=== PATIENT | female | born 1940 | race Caucasian/White ===

== ENCOUNTER 2017-01-15 18:50 | Inpatient (IN) | payer MEDICARE, BC ==
[~2017-01-15] VITALS: Ht 167.6 cm; Wt 50.0 kg
--- NOTE | 2017-01-15 19:08 | ED.ADGEN ---
Past History Past Medical History: Dementia, Other Adult General Chief Complaint Chief Complaint " No.. No... No... " " No touch.." I am fine..." Leave me alone.." HPI HPI Patient is a 76 year old female who presents with mental status change. Pt. [facility], for evaluation of behavioral changes. Pt. has hx. of more aggressive behavior, combative, pacing, agitation, impulsive behavior, verbal abusive, difficult to re-direct. Pt. has hx of Alzheimer, anxiety disorder, insomnia, Crohn's disease, urinary stress incontinence. Some recent history of falls. Pt. Primary is Dr. Phil Gee. Patient has been previously ambulatory at the retirement with use of cane. Hx of falls at assisted. Review of Systems Review of Systems Patient has no complaints- but a difficult historian Constitutional: Denies fever or chills [] Eyes: Denies change in visual acuity, redness, or eye pain [] HENT: Denies nasal congestion or sore throat [] Respiratory: Denies cough or shortness of breath [] Cardiovascular: No additional information not addressed in HPI [] GI: Denies abdominal pain, nausea, vomiting, bloody stools or diarrhea [] : Denies dysuria or hematuria [] Musculoskeletal: Denies back pain or joint pain [] Integument: Denies rash or skin lesions [] Neurologic: Denies headache, focal weakness or sensory changes [] Endocrine: Denies polyuria or polydipsia [] All other systems were reviewed and found to be within normal limits, except as documented in this note. Family History Family History Not currently available Current Medications Current Medications Current Medications Medications (Trade) Dose Ordered Sig/Dora Start Time Stop Time Status Last Admin Dose Admin Diphenhydramine HCl (Benadryl) 50 mg 1X ONCE 01/15/17 19:30 01/15/17 20:15 DC 01/15/17 19:35 50 MG Lorazepam (Ativan) 2 mg 1X ONCE 01/15/17 22:45 01/15/17 22:46 DC 01/15/17 22:20 2 MG Ziprasidone (Geodon Im) 10 mg 1X ONCE 01/15/17 22:45 01/15/17 22:46 DC 01/15/17 22:45 10 MG Allergies Allergies Allergies Coded Allergies Type Severity Reaction Last Updated Verified YAZMIN Inhibitors Allergy Unknown 01/15/17 Yes Physical Exam Physical Exam Constitutional: in acute emotional distress, non-toxic appearance. Very agitated. HENT: Normocephalic, atraumatic, bilateral external ears normal, oropharynx moist, no oral exudates, nose normal. [] Eyes: PERRLA, EOMI, conjunctiva normal, no discharge. [] Neck: Normal range of motion, no tenderness, supple, no stridor. [] Cardiovascular:Heart rate regular rhythm, no murmur [] Lungs & Thorax: Bilateral breath sounds equal at apexes with some fine basilar crackles and scattered wheezes on auscultation [] Abdomen: Bowel sounds normal, soft, no tenderness, no masses, no pulsatile masses. Old surgery scar. Skin: Warm, dry, no erythema, no rash. Poor turgor Back: No tenderness, no CVA tenderness. [] Extremities: No tenderness, no cyanosis, no clubbing, ROM intact, no edema. Arthritic changes Neurologic: Alert and oriented X 1, confused, moves all extremities ,, no gross sensory function deficits, no gross focal deficits noted. [] Psychologic: Affect very agitated attempts to bite and strike staff, judgement obvious impairment mood anxious and angry. She is requesting return her to prior retirement. Current Patient Data Vital Signs Vital Signs Date Time Temp Pulse Resp B/P (MAP) Pulse Ox O2 Delivery O2 Flow Rate FiO2 01/15/17 19:15 98.4 78 95 01/15/17 19:15 20 120/64 (82) Room Air Lab Results Laboratory Tests Test 01/15/17 19:45 01/15/17 19:50 White Blood Count 5.8 x10^3/uL (4.0-11.0) Red Blood Count 3.36 x10^6/uL (3.50-5.40) L Hemoglobin 10.9 g/dL (12.0-15.5) L Hematocrit 31.1 % (36.0-47.0) L Mean Corpuscular Volume 93 fL (79-100) Mean Corpuscular Hemoglobin 32 pg (25-35) Mean Corpuscular Hemoglobin Concent 35 g/dL (31-37) Red Cell Distribution Width 14.0 % (11.5-14.5) Platelet Count 282 x10^3/uL (140-400) Neutrophils (%) (Auto) 55 % (31-73) Lymphocytes (%) (Auto) 31 % (24-48) Monocytes (%) (Auto) 12 % (0-9) H Eosinophils (%) (Auto) 1 % (0-3) Basophils (%) (Auto) 1 % (0-3) Neutrophils # (Auto) 3.2 x10^3uL (1.8-7.7) Lymphocytes # (Auto) 1.8 x10^3/uL (1.0-4.8) Monocytes # (Auto) 0.7 x10^3/uL (0.0-1.1) Eosinophils # (Auto) 0.0 x10^3/uL (0.0-0.7) Basophils # (Auto) 0.0 x10^3/uL (0.0-0.2) Sodium Level 142 mmol/L (136-145) Potassium Level 3.2 mmol/L (3.5-5.1) L Chloride Level 106 mmol/L (98-107) Carbon Dioxide Level 28 mmol/L (21-32) Anion Gap 8 (6-14) Blood Urea Nitrogen 12 mg/dL (7-20) Creatinine 1.0 mg/dL (0.6-1.0) Estimated GFR (Cockcroft-Gault) 53.9 BUN/Creatinine Ratio 12 (6-20) Glucose Level 94 mg/dL (70-99) Calcium Level 8.6 mg/dL (8.5-10.1) Magnesium Level 1.7 mg/dL (1.8-2.4) L Total Bilirubin 0.6 mg/dL (0.2-1.0) Aspartate Amino Transferase (AST) 20 U/L (15-37) Alanine Aminotransferase (ALT) 23 U/L (14-59) Alkaline Phosphatase 54 U/L (46-116) Creatine Kinase 86 U/L (26-192) Creatine Kinase MB (Mass) 1.5 ng/mL (0.0-3.6) Creatine Kinase MB Relative Index 1.7 % (0-4) Troponin I Quantitative < 0.017 ng/mL (0-0.055) FV-Kup-V-Type Natriuretic Peptide 208 pg/mL (0-449) Total Protein 6.5 g/dL (6.4-8.2) Albumin 3.2 g/dL (3.4-5.0) L Albumin/Globulin Ratio 1.0 (1.0-1.7) Lipase 216 U/L (73-393) Urine Collection Type U cath Urine Color Yellow Urine Clarity Clear Urine pH 6.0 Urine Specific [place] 1.025 Urine Protein 30 mg/dl (NEG-TRACE) Urine Glucose (UA) Neg mg/dL (NEG) Urine Ketones (Stick) Neg mg/dL (NEG) Urine Blood Neg (NEG) Urine Nitrite Neg (NEG) Urine Bilirubin Neg (NEG) Urine Urobilinogen Dipstick 0.2 mg/dL (0.2 mg/dL) Urine Leukocyte Esterase Neg (NEG) Urine RBC 1-2 /HPF (0-2) Urine WBC 1-4 /HPF (0-4) Urine Squamous Epithelial Cells Few /LPF Urine Bacteria 0 /HPF (0-FEW) Urine Mucus Mod /LPF Urine Opiates Screen Neg (NEG) Urine Methadone Screen Neg (NEG) Urine Barbiturates Neg (NEG) Urine Phencyclidine Screen Neg (NEG) Urine Amphetamine/Methamphetamine Neg (NEG) Urine Benzodiazepines Screen Neg (NEG) Urine Cocaine Screen Neg (NEG) Urine Cannabinoids Screen Neg (NEG) Urine Ethyl Alcohol Neg (NEG) EKG EKG My interpretation of EKG shows a sinus rhythm at 77 bpm. There is some nonspecific contour changes in the anterior septal region. But no findings acute STEMI with contralateral changes.[] Radiology/Procedures Radiology/Procedures My interpretation of chest x-ray shows chronic fibrotic COPD changes. No free air under the diaphragm. Degenerative joint changes.[] My interpretation of CT head show no shift, mass, bleed, fx. , edema, DJD of neck. Course & Med Decision Making Course & Med Decision Making Pertinent Labs and Imaging studies reviewed. (See chart for details) Patient difficult to redirect , pt required sedation to complete lab draws and workup. Discussed presentation, testing and tx. plan with Dr. Westbrook. Admit to [facility]- Dr. Pena. [] Final Impression Final Impression 1. Mental Status Change[] 2. Dementia 3. Hypokalemia 4. Hypomagnesium 5. Anemia 6. Aggressive Behavior 7. Hx. of Crohn's disease 8. History of anxiety disorder 9. History of stress incontinence 10. History of insomnia Problems: Dragon Disclaimer Dragon Disclaimer This electronic medical record was generated, in whole or in part, using a voice recognition dictation system. SHYANNE VELIZ MD Jan 15, 2017 19:08
[2017-01-15] MEDS ORDERED: diphenhydrAMINE 50 MG/ML VIAL ONE (19:28)
[2017-01-15] MEDS ORDERED: LORazepam 2 MG/ML VIAL ONE (19:28)
[2017-01-15] MEDS ORDERED: diphenhydrAMINE 50 MG/ML VIAL IM ONE (19:30)
[2017-01-15] MEDS ORDERED: LORazepam 2 MG/ML VIAL IM ONE ×2 (19:30→22:45)
[2017-01-15 20:12] LABS: BASO % 1 % (0-3); EOS % 1 % (0-3); HEMATOCRIT 31.1 % (36.0-47.0); HEMOGLOBIN 10.9 g/dL (12.0-15.5); LYMPH # 1.8 x10^3/uL (1.0-4.8); LYMPH % 31 % (24-48); MEAN CORPUSCULAR HEMOGLOBIN 32 pg (25-35); MEAN CORPUSCULAR HGB CONC 35 g/dL (31-37); MEAN CORPUSCULAR VOLUME 93 fL (79-100); MONO # 0.7 x10^3/uL (0.0-1.1); MONO % 12 % (0-9); NEUT # 3.2 x10^3uL (1.8-7.7); NEUT % 55 % (31-73); PLATELET COUNT 282 x10^3/uL (140-400); RED BLOOD COUNT 3.36 x10^6/uL (3.50-5.40); WHITE BLOOD COUNT 5.8 x10^3/uL (4.0-11.0)
[2017-01-15] MEDS ORDERED: LORazepam 1 MG TABLET PO ONE ×2 (20:15→21:45)
[2017-01-15 20:30] LABS: AMPHETAMINE/METHAMPHETAMINE NEG (NEG); BARBITURATES NEG (NEG); BENZODIAZEPINES NEG (NEG); CANNABINOIDS NEG (NEG); COCAINE NEG (NEG); METHADONE NEG (NEG); OPIATES NEG (NEG); PHENCYCLIDINE NEG (NEG)
[2017-01-15 20:33] LABS: ALBUMIN 3.2 g/dL (3.4-5.0); CALCIUM 8.6 mg/dL (8.5-10.1); GFR 53.9; MAGNESIUM 1.7 mg/dL (1.8-2.4); POTASSIUM 3.2 mmol/L (3.5-5.1); TOTAL BILIRUBIN 0.6 mg/dL (0.2-1.0); TOTAL PROTEIN 6.5 g/dL (6.4-8.2)
[2017-01-15 20:36] LABS: BILIRUBIN,URINE NEG (NEG); CLARITY,URINE CLEAR; COLOR,URINE YELLOW; GLUCOSE,URINE NEG (NEG)
[2017-01-15 20:37] LABS: BACTERIA,URINE 0 /HPF (0-FEW); NITRITE,URINE NEG (NEG); SQUAMOUS EPITHELIAL CELL,UR FEW /LPF; UROBILINOGEN,URINE 0.2 mg/dL (0.2 mg/dL)
[2017-01-15] MEDS ORDERED: LOSA50TA6 PO (21:21)
[2017-01-15] MEDS ORDERED: SIMV40TA3 PO (21:21)
[2017-01-15] MEDS ORDERED: TRAZ50TA15 PO (21:21)
[2017-01-15] MEDS ORDERED: CHOL4POW11 PO (21:21)
[2017-01-15] MEDS ORDERED: TRAZ150T49 PO (21:21)
[2017-01-15] MEDS ORDERED: POLY17PO5 PO (21:21)
[2017-01-15] MEDS ORDERED: MEMA10TA PO (21:21)
[2017-01-15] MEDS ORDERED: OMEG-117 PO (21:21)
[2017-01-15] MEDS ORDERED: DIVA125C PO (21:21)
[2017-01-15] MEDS ORDERED: ACET325T9 PO (21:21)
[2017-01-15] MEDS ORDERED: MESA500C PO (21:21)
[2017-01-15] MEDS ORDERED: ZIPRASIDONE IM 20 MG VIAL. IM ONE (22:45)
--- NOTE | 2017-01-16 00:24 | EKG ---
[address] [address] Test Date: 2017-01-15 Test Time: 20:00:10 Pat Name: KAIT ACE Department: Room: Gender: F Stiff Neck Loader: ALMA : 1940 Requested By: SHYANNE VELIZ Order Number: [id number] Reading MD: John Brown Measurements Intervals [place] Rate: 77 P: 26 CA: 178 QRS: 9 QRSD: 80 T: 49 QT: 370 QTc: 420 Interpretive Statements SINUS RHYTHM QRS(T) CONTOUR ABNORMALITY CONSISTENT WITH ANTEROSEPTAL INFARCT PROBABLY OLD ABNORMAL ECG Electronically Signed On 01-22-2017 14:29:24 SOCIETY EDITOR by John Brown
--- NOTE | 2017-01-16 00:39 | RAD ---
CT Head W/O Contrast: History: 311481.001 Recent falls, altered mental status, confusion, combative. No priors. Comparison: none Axial images were obtained without contrast. There is moderate diffuse atrophy. There is no mass effect, extraaxial fluid collections or hydrocephalus. There is no gross bleed. Moderate, patchy periventricular and subcortical white matter hypoattenuation is seen. There is no focal loss of tilley-white matter distinction to suggest acute ischemia, i.e. stroke. Impression: No acute findings. End impression CT C-Spine without contrast: Clinical History: 239786.001 Recent falls, altered mental status, confusion, combative. No priors. Technique: Axial helical images of the cervical spine were obtained without contrast, axial coronal and sagittal reconstruction was performed. Findings: There is no loss of vertebral body stature. There is no prevertebral soft tissue swelling. There is mild degenerative anterolisthesis of C4 on C5. The C1-C2 relationship is normal. The visualized osseous structures appear normal. Evaluation of the central canal is limited without contrast. There is multiple posterior disc bulges resulting in flattening of the thecal sac. There does not appear to be gross flattening of the cervical cord. There is moderate narrowing of multiple neuroforamen. Impression: No acute findings. Clinical correlation suggested. PQRS Compliance Statement: One or more of the following individualized dose reduction techniques were utilized for this examination: 1. Automated exposure control 2. Adjustment of the mA and/or kV according to patient size 3. Use of iterative reconstruction technique Electronically signed by: García Gamble III, MD (01/16/2017 12:36 AM) [facility]
[2017-01-16] MEDS ORDERED: ACETAMINOPHEN 325 MG TABLET PO PRN ×2 (03:45→06:15)
[2017-01-16] MEDS ORDERED: METHYL SALICYLATE/MENTHOL TOPICAL OINTMENT 29GM TUBE. TP PRN (03:45)
[2017-01-16] MEDS ORDERED: MAG HYDROX/AL HYDROX/SIMETH 30 ML ORAL.SUSP PO PRN (03:45)
[2017-01-16 03:47] VITALS: BP 165/85
[2017-01-16] MEDS ORDERED: traZODone 50 MG TABLET. PO PRN (04:00)
[2017-01-16] MEDS ORDERED: POTASSIUM CHLORIDE 20 MEQ TABLET.ER. PO ONE ×2 (06:30→12:45)
--- NOTE | 2017-01-16 08:15 | RAD ---
Chest x-ray Indication: Weakness, confusion 20. Technique: Portable AP chest x-ray Comparison: None Findings: Heart is normal in size. Ectatic thoracic aorta. Lungs are clear. No pneumothorax or pleural effusion. Visualized bony thorax is within normal limits. Impression: No acute cardiopulmonary process.
[2017-01-16] MEDS: MESALAMINE ER 250 MG CAPSULE.ER PO SCH ×4 (09:00→19:38)
[2017-01-16] MEDS ORDERED: MEMANTINE 10 MG TABLET. PO SCH (09:00)
[2017-01-16] MEDS: POLYETHYLENE GLYCOL 3350 17 GM PACKET. PO SCH (12:23)
[2017-01-16] MEDS: OMEGA-3 FATTY ACIDS/FISH OIL 1,000 MG CAPSULE. PO SCH ×3 (12:23→19:39)
[2017-01-16] MEDS: CHOLESTYRAMINE/ASPARTAME 4 GM PACKET PO SCH (12:23)
[2017-01-16] MEDS: DIVALPROEX 125 MG CAP.SPRINK PO SCH (12:23)
[2017-01-16 12:25] VITALS: BP 174/89
[2017-01-16] MEDS: LOSARTAN 50 MG TABLET. PO SCH (12:26)
[2017-01-16] MEDS ORDERED: CYANOCOBALAMIN (VITAMIN B-12) 1,000 MCG/ML VIAL IM SCH (17:15)
[2017-01-16] MEDS ORDERED: CHOLECALCIFEROL (VITAMIN D3) 50,000 UNIT CAPSULE PO SCH (17:15)
[2017-01-16] MEDS: SIMVASTATIN 40 MG TABLET. PO SCH (19:39)
--- NOTE | 2017-01-16 20:05 | PDOC ---
Exam Note: Didier Note: Please also refer to the separate dictated note~for this date of service dictated separately.~Patient seen individually. Discussed the patient with Nursing staff reviewed the chart.~Reviewed interim history and current functioning. Reviewed vital signs,~Labs/ Radiology~and current medications noted below. Continue current treatment with the changes noted in the dictated addendum note Assessment: Vital Signs: Vital Signs Date Time Temp Pulse Resp B/P (MAP) Pulse Ox O2 Delivery O2 Flow Rate FiO2 01/16/17 12:26 74 174/89 01/16/17 03:47 97.4 18 91 Room Air I&O Intake and Output 01/16/17 07:00 # Voids 2 # Bowel Movements 1 Current Medications: Meds: Current Medications Lorazepam (Ativan) 2 mg 1X ONCE PO ; Start 01/15/17 at 20:15; Stop 01/15/17 at 20:16; Status DC Diphenhydramine HCl (Benadryl) 50 mg STK-MED ONCE .ROUTE ; Start 01/15/17 at 19 :28; Stop 01/15/17 at 19:29; Status DC Lorazepam (Ativan) 2 mg STK-MED ONCE .ROUTE ; Start 01/15/17 at 19:28; Stop at 19:29; Status DC Diphenhydramine HCl (Benadryl) 50 mg 1X ONCE IM Last administered on 19:35; Start 01/15/17 at 19:30; Stop 01/15/17 at 20:15; Status DC Lorazepam (Ativan) 2 mg 1X ONCE IM Last administered on 01/15/17 19:35; Start 01/15/17 at 19:30; Stop 01/15/17 at 20:15; Status DC Lorazepam (Ativan) 1 mg 1X ONCE PO ; Start 01/15/17 at 21:45; Stop 01/15/17 at 21:46; Status DC Lorazepam (Ativan) 2 mg 1X ONCE IM Last administered on 01/15/17 22:20; Start 01/15/17 at 22:45; Stop 01/15/17 at 22:46; Status DC Ziprasidone (Geodon Im) 10 mg 1X ONCE IM Last administered on 01/15/17 22:45 ; Start 01/15/17 at 22:45; Stop 01/15/17 at 22:46; Status DC Acetaminophen (Tylenol) 650 mg PRN Q6HRS PRN PO MILD PAIN / TEMP; Start at 03:45 Multi-Ingredient Ointment (Analgesic [place]) 1 rafat PRN QID PRN TP MUSCLE PAIN; Start 01/16/17 at 03:45 Al Hydroxide/Mg Hydroxide (Mylanta Plus Xs) 15 ml PRN AFTMEALHC PRN PO DYSPEPSIA; Start 01/16/17 at 03:45 Magnesium Hydroxide (Milk Of Magnesia) 2,400 mg PRN QHS PRN PO CONSTIPATION; Start 01/16/17 at 03:45 Divalproex Sodium (Depakote Sprinkles) 125 mg DAILY PO Last administered on 12:23; Start 01/16/17 at 09:00 Memantine (Namenda) 10 mg BID PO Last administered on 01/16/17 12:23; Start 01/16/17 at 09:00; Stop 01/16/17 at 19:00; Status DC Trazodone HCl (Desyrel) 75 mg HS PO Last administered on 01/16/17 19:38; Start 01/16/17 at 21:00 Trazodone HCl (Desyrel) 75 mg PRN QHS PRN PO IF REPEAT NEEDED; Start 01/16/17 at 04:00 Acetaminophen (Tylenol) 650 mg PRN Q48HR PRN PO PAIN; Start 01/16/17 at 06:15 ; Status UNV Losartan Potassium (Cozaar) 50 mg DAILY PO Last administered on 01/16/17 12: 26; Start 01/16/17 at 09:00 Polyethylene Glycol (miraLAX) 17 gm DAILY PO Last administered on 01/16/17 12 :23; Start 01/16/17 at 09:00 Simvastatin (Zocor) 40 mg HS PO Last administered on 01/16/17 19:39; Start 01/16/17 at 21:00 Cholestyramine Resin (Questran Light) 4 gm DAILY PO Last administered on 12:23; Start 01/16/17 at 09:00 Mesalamine (Pentasa) 1,000 mg [id number] PO Last administered on 01/16/17 19:38 ; Start 01/16/17 at 09:00 Fish Oil (Fish Oil) 1,000 mg TID PO Last administered on 01/16/17 19:39; Start 01/16/17 at 09:00 Potassium Chloride (Klor-Con) 40 meq 1X ONCE PO Last administered on 06:30; Start 01/16/17 at 06:30; Stop 01/16/17 at 06:31; Status DC Potassium Chloride (Klor-Con) 40 meq 1X ONCE PO ; Start 01/16/17 at 12:45; Stop 01/16/17 at 12:46; Status DC Vitamin D (Vitamin D3) 50,000 unit WEEKLY PO ; Start 01/16/17 at 17:15; Stop 01/16/17 at 18:10; Status DC Cyanocobalamin (Vitamin B-12) 1,000 mcg DAILY IM ; Start 01/16/17 at 17:15; Stop 01/16/17 at 18:10; Status DC Cyanocobalamin (Vitamin B-12) 1,000 mcg [id number] IM ; Start 02/13/17 at 09:00 Vitamin D (Vitamin D3) 50,000 unit WEEKLY PO ; Start 01/17/17 at 09:00 Cyanocobalamin (Vitamin B-12) 1,000 mcg DAILY IM ; Start 01/17/17 at 09:00; Stop 01/21/17 at 08:59 Olanzapine (ZyPREXA ZYDIS) 2.5 mg PRN Q2HR PRN PO PSYCHOSIS Last administered on 01/16/17 19:39; Start 01/16/17 at 18:45 Active Scripts Active Reported Tylenol (Acetaminophen) 325 Mg Tablet 650 Mg PO PRN Q48HR PRN Trazodone Hcl 50 Mg Tablet 75 Mg PO PRN 2PM Trazodone Hcl 150 Mg Tablet 75 Mg PO HS Simvastatin 40 Mg Tablet 40 Mg PO HS Questran Packet (Cholestyramine (With Sugar)) 4 Gm Powd.pack 4 Gm PO DAILY Pentasa (Mesalamine) 500 Mg Capsule.er 1,000 Mg PO QID Miralax (Polyethylene Glycol 3350) 17 Gm Powd.pack 17 Gm PO DAILY Namenda (Memantine Hcl) 10 Mg Tablet 10 Mg PO BID Losartan Potassium 50 Mg Tablet 50 Mg PO DAILY Fish Oil 1,200 mg Softgel ([place]-3/Dha/Epa/Fish Oil) 1 Each Capsule. 1 Each PO TID Depakote Sprinkle (Divalproex Sodium) 125 Mg Cap.sprink 125 Mg PO DAILY I have reviewed the current psychotropics carefully including drug interactions. Risk benefit ratio favors no change other than as noted in my dictated progress note. Diagnosis: Problems: (1) Mental status change (2) Anxiety disorder (3) Dementia in Alzheimer's disease with delusions (4) Dementia in Alzheimer's disease with depression (5) Dementia, vascular, with delusions (6) Dementia, vascular, with depression (7) Impulse control disorder GLADIS MCCOY MD Jan 16, 2017 20:05
[2017-01-16] MEDS ORDERED: traZODone 50 MG TABLET. PO SCH (21:00)
[2017-01-17 06:27] VITALS: BP 110/51
[2017-01-17 09:33] LABS: BASO % 0 % (0-3); EOS % 0 % (0-3); HEMATOCRIT 32.8 % (36.0-47.0); HEMOGLOBIN 11.2 g/dL (12.0-15.5); LYMPH % 17 % (24-48); MEAN CORPUSCULAR HEMOGLOBIN 32 pg (25-35); MEAN CORPUSCULAR HGB CONC 34 g/dL (31-37); MEAN CORPUSCULAR VOLUME 92 fL (79-100); MONO # 0.6 x10^3/uL (0.0-1.1); MONO % 10 % (0-9); NEUT # 4.4 x10^3uL (1.8-7.7); NEUT % 73 % (31-73); PLATELET COUNT 286 x10^3/uL (140-400); RED BLOOD COUNT 3.55 x10^6/uL (3.50-5.40); RED CELL DISTRIBUTION WIDTH 14.1 % (11.5-14.5); WHITE BLOOD COUNT 6.1 x10^3/uL (4.0-11.0)
[2017-01-17 09:56] LABS: ALK PHOS 40 U/L (46-116); ALT (SGPT) 25 U/L (14-59); ANION GAP 9 (6-14); AST (SGOT) 37 U/L (15-37); BLOOD UREA NITROGEN 10 mg/dL (7-20); BUN/CREATININE RATIO 11 (6-20); CALCIUM 8.5 mg/dL (8.5-10.1); CARBON DIOXIDE 28 mmol/L (21-32); CHLORIDE 109 mmol/L (98-107); CREATININE 0.9 mg/dL (0.6-1.0); GFR 60.9; GLUCOSE 98 mg/dL (70-99); MAGNESIUM 1.7 mg/dL (1.8-2.4); SODIUM 146 mmol/L (136-145); TOTAL BILIRUBIN 0.7 mg/dL (0.2-1.0); TOTAL PROTEIN 5.9 g/dL (6.4-8.2)
[2017-01-17 10:02] LABS: POTASSIUM 2.9 mmol/L (3.5-5.1); VAL ACID 7 mcg/mL (50-100)
[2017-01-17] MEDS: LOSARTAN 50 MG TABLET. PO SCH (11:03)
[2017-01-17] MEDS: OMEGA-3 FATTY ACIDS/FISH OIL 1,000 MG CAPSULE. PO SCH ×3 (11:03→19:50)
[2017-01-17] MEDS: CHOLECALCIFEROL (VITAMIN D3) 50,000 UNIT CAPSULE PO SCH (11:03)
[2017-01-17] MEDS: DIVALPROEX 125 MG CAP.SPRINK PO SCH ×2 (11:03→19:49)
[2017-01-17] MEDS: POTASSIUM CHLORIDE 10 MEQ TABLET.ER. PO SCH ×2 (11:04→19:51)
[2017-01-17] MEDS: POLYETHYLENE GLYCOL 3350 17 GM PACKET. PO SCH (11:04)
[2017-01-17] MEDS: MESALAMINE ER 250 MG CAPSULE.ER PO SCH ×4 (11:04→19:53)
[2017-01-17] MEDS: CYANOCOBALAMIN (VITAMIN B-12) 1,000 MCG/ML VIAL IM SCH (11:05)
[2017-01-17] MEDS: CHOLESTYRAMINE/ASPARTAME 4 GM PACKET PO SCH (11:06)
--- NOTE | 2017-01-17 15:49 | HP ---
ADMIT DATE: 01/16/2017 This is a late dictation. The patient was seen on 01/16. REASON FOR ADMISSION TO SENIOR [facility]HAVIORAL UNIT: This is a 76-year-old female who came from [facility] in [place] where she has resided since 10/2016. At the facility, there has been great concern for her safety. She bit her . She has been combative with cares, pacing, impulsive, very labile and resistant and resonant to resident altercations. Things that have been attempted, aroma therapy, Ativan, trazodone and she was just started on Depakote. Redirection and ambulating and monitoring her diet, none apparently have helped. PAST MEDICAL HISTORY: Alzheimer disease, anxiety, insomnia, Crohn's disease, stress incontinence. ALLERGIES: YAZMIN INHIBITORS. MEDICATIONS: Reviewed and are available on the MAR. The patient has been refusing to take medications, however. SOCIAL HISTORY: She never smoked. Drinking history is not known. Immunizations: Refused the pneumonia vaccine. Received the flu shot on 11/07. OBJECTIVE: GENERAL: The patient was seen in the quiet room. The staff has been unable to manage her. She has attempted to bite them. She will put herself on the floor. She is lying in there on the mat. She is talking to herself and looking at the wall. She is unable to communicate with me: VITAL SIGNS: Blood pressure is 120/64, pulse 78, temperature 98.4, pulse ox 95% on room air. The patient just allowed cursory exam. Her height is 66 inches, weight 115 pounds. She has an anorectic, cachectic appearance. She is lying on her stomach. LUNGS: Clear. CARDIOVASCULAR: Regular rhythm and rate. EXTREMITIES: Were without edema and unable to complete any further physical exam due to the patient's psychotic state. MENTAL STATUS: Her mental state is psychotic and she seems to be frightened, but is in a safe place. LABORATORY DATA: Hemoglobin 11.2, hematocrit 32.8. Chemistry low B12 of 244, low vitamin D of 12.2. Potassium was 2.9, that was this morning. TSH is 0.912. ASSESSMENT: 1. Neurocognitive impairment with psychosis. 2. Severe anxiety. 3. Insomnia. 4. Crohn's disease. 5. History of stress incontinence. 6. Iron deficiency. 7. B12 deficiency. 8. Hypokalemia. 9. Hypomagnesemia. PLAN: Start replacement of B12 and other deficiencies and we will do our best to get her to out of bed to functional level as soon as possible. KATELYNN HOLT DO DR: CHRISTIAN/alma JOB#: [id number] / [id number]
--- NOTE | 2017-01-17 15:49 | HP ---
ADMIT DATE: 01/16/2017 PSYCHIATRIC ADMISSION HISTORY/EVALUATION This is a late entry, date of service 01/16/2017 covers elements not covered in my initial note of 01/16/2017. I met with the patient evening of 01/16/2017 for this evaluation, previously discussed with nursing staff on several occasions to review background referral information from [facility] long[facility]term care in the [facility], information from Dr. Lauren Ennis, her primary care physician and information from the ER to justify inpatient psychiatric stabilization. IDENTIFYING DATA: A 76-year-old female referred to us from [facility] by her primary care physician on account of worsening confusion, delusions within the context of her dementia. The patient bit her , was combative with cares, pacing, impulsive, very labile, yelling, screaming, having altercations with peers. She had been started on Depakote in an attempt to control her behaviors and in fact, when she presented to the [facility] Emergency Room, she was so out of control, volatile that she had received 2 mg of Ativan along with Geodon IM and Benadryl in an attempt to control her behaviors. CHIEF COMPLAINT: "No." The patient was lying on the floor on mattress in the separate hallway from the other ____ on the unit and she was yelling, labile, aggressive, paranoid, delusional as I met with her. HISTORY OF PRESENT ILLNESS: The patient has a history of dementia, Alzheimer's, vascular type. She has been residing at the [facility] facility for some time, but over the past several weeks behaviors have been worsening, more so over the past 4 days. Her behaviors have been deemed dangerous. She has had sleep and appetite changes, has failed outpatient psychiatric interventions. No clear history of bipolar disorder. PAST PSYCHIATRIC HISTORY: As above. MEDICAL HISTORY: Positive for Crohn's disease, stress incontinence. CODE STATUS: DNR. ALLERGIES: YAZMIN INHIBITORS. ACCU-CHEKS: Negative. DIET: Regular. Takes her medications crushed. CURRENT PSYCHOTROPICS: Depakote Sprinkles 125 mg daily for the past 1 week, Namenda 10 mg b.i.d., trazodone 75 mg at bedtime plus 75 mg at bedtime p.r.n. insomnia. Since admission, we have added Zyprexa 2.5 mg q.2h. p.r.n. psychosis, agitation, no more than 10 mg a day. FAMILY HISTORY: Noncontributory. SOCIAL HISTORY: No history of alcohol, drug abuse, physical, sexual, or elder abuse. She is not known to be a perpetrator. MENTAL STATUS EXAMINATION: The patient was seen individually evening of 01/16/2017. She is on the floor on a mattress where I sat with her. She is oriented to herself, constantly moving, yelling, screaming, trying to hit out at me. Insight, judgment, recent and remote memory, attention, concentration, fund of knowledge poor, consistent with her diagnosis. IMPRESSION: Major neurocognitive disorder, Alzheimer, vascular with depression, delusion, behavioral disturbance; anxiety disorder, unspecified; impulse control disorder, unspecified. Rest diagnoses as above. PLAN: Admit to geropsychiatry unit at [facility]. I will see the patient daily individually from a psychiatric standpoint, medical followup per Dr. Westbrook/Dr. Isabel. Zyprexa has been added p.r.n. We will check a valproic acid level, adjust Depakote to reach a therapeutic level. Consider scheduled dosage of Seroquel during the day as an atypical antipsychotic mood stabilizer. We will make further treatment decisions post baseline assessment. MAN Sarita MCCOY MD DR: VIVIAN/alma JOB#: [id number] / [id number]
[2017-01-17] MEDS: PRENATAL MULTIVITAMIN TABLET. PO SCH (16:44)
[2017-01-17] MEDS: SIMVASTATIN 40 MG TABLET. PO SCH (19:51)
[2017-01-17] MEDS: traZODone 100 MG TABLET. PO SCH (19:53)
[2017-01-17 20:07] LABS: HEMOGLOBIN A1C 4.4 % (4.8-5.6)
--- NOTE | 2017-01-17 20:08 | PDOC ---
Exam Note: Didier Note: Please also refer to the separate dictated note~for this date of service dictated separately.~Patient seen individually. Discussed the patient with Nursing staff reviewed the chart.~Reviewed interim history and current functioning. Reviewed vital signs,~Labs/ Radiology~and current medications noted below. Continue current treatment with the changes noted in the dictated addendum note Assessment: Vital Signs: Vital Signs Date Time Temp Pulse Resp B/P (MAP) Pulse Ox O2 Delivery O2 Flow Rate FiO2 01/17/17 11:03 80 110/51 01/17/17 06:27 97.8 18 98 01/16/17 03:47 Room Air I&O Intake and Output 01/17/17 07:00 Intake Total 600 ml Balance 600 ml Intake Oral 600 ml Labs: Laboratory Tests Test 01/17/17 08:56 White Blood Count 6.1 x10^3/uL (4.0-11.0) Red Blood Count 3.55 x10^6/uL (3.50-5.40) Hemoglobin 11.2 g/dL (12.0-15.5) L Hematocrit 32.8 % (36.0-47.0) L Mean Corpuscular Volume 92 fL (79-100) Mean Corpuscular Hemoglobin 32 pg (25-35) Mean Corpuscular Hemoglobin Concent 34 g/dL (31-37) Red Cell Distribution Width 14.1 % (11.5-14.5) Platelet Count 286 x10^3/uL (140-400) Neutrophils (%) (Auto) 73 % (31-73) Lymphocytes (%) (Auto) 17 % (24-48) L Monocytes (%) (Auto) 10 % (0-9) H Eosinophils (%) (Auto) 0 % (0-3) Basophils (%) (Auto) 0 % (0-3) Neutrophils # (Auto) 4.4 x10^3uL (1.8-7.7) Lymphocytes # (Auto) 1.0 x10^3/uL (1.0-4.8) Monocytes # (Auto) 0.6 x10^3/uL (0.0-1.1) Eosinophils # (Auto) 0.0 x10^3/uL (0.0-0.7) Basophils # (Auto) 0.0 x10^3/uL (0.0-0.2) Sodium Level 146 mmol/L (136-145) H Potassium Level 2.9 mmol/L (3.5-5.1) *L Chloride Level 109 mmol/L (98-107) H Carbon Dioxide Level 28 mmol/L (21-32) Anion Gap 9 (6-14) Blood Urea Nitrogen 10 mg/dL (7-20) Creatinine 0.9 mg/dL (0.6-1.0) Estimated GFR (Cockcroft-Gault) 60.9 BUN/Creatinine Ratio 11 (6-20) Glucose Level 98 mg/dL (70-99) Hemoglobin A1c 4.4 % (4.8-5.6) L Calcium Level 8.5 mg/dL (8.5-10.1) Magnesium Level 1.7 mg/dL (1.8-2.4) L Ferritin 146 ng/mL (8-252) Total Bilirubin 0.7 mg/dL (0.2-1.0) Aspartate Amino Transferase (AST) 37 U/L (15-37) Alanine Aminotransferase (ALT) 25 U/L (14-59) Alkaline Phosphatase 40 U/L (46-116) L Total Protein 5.9 g/dL (6.4-8.2) L Albumin 3.0 g/dL (3.4-5.0) L Albumin/Globulin Ratio 1.0 (1.0-1.7) Triglycerides Level 43 mg/dL (0-150) Cholesterol Level 119 mg/dL (0-200) LDL Cholesterol, Calculated 30 mg/dL (0-100) VLDL Cholesterol, Calculated 8 mg/dL (0-40) Non-HDL Cholesterol Calculated 38 mg/dL (0-129) HDL Cholesterol 81 mg/dL (40-60) H Cholesterol/HDL Ratio 1.0 Valproic Acid Level 7 mcg/mL (50-100) L Valproic Acid Last Dose Date 01/16/17 Valproic Acid Last Dose Time 2100 Current Medications: Meds: Current Medications Lorazepam (Ativan) 2 mg 1X ONCE PO ; Start 01/15/17 at 20:15; Stop 01/15/17 at 20:16; Status DC Diphenhydramine HCl (Benadryl) 50 mg STK-MED ONCE .ROUTE ; Start 01/15/17 at 19 :28; Stop 01/15/17 at 19:29; Status DC Lorazepam (Ativan) 2 mg STK-MED ONCE .ROUTE ; Start 01/15/17 at 19:28; Stop at 19:29; Status DC Diphenhydramine HCl (Benadryl) 50 mg 1X ONCE IM Last administered on 19:35; Start 01/15/17 at 19:30; Stop 01/15/17 at 20:15; Status DC Lorazepam (Ativan) 2 mg 1X ONCE IM Last administered on 01/15/17 19:35; Start 01/15/17 at 19:30; Stop 01/15/17 at 20:15; Status DC Lorazepam (Ativan) 1 mg 1X ONCE PO ; Start 01/15/17 at 21:45; Stop 01/15/17 at 21:46; Status DC Lorazepam (Ativan) 2 mg 1X ONCE IM Last administered on 01/15/17 22:20; Start 01/15/17 at 22:45; Stop 01/15/17 at 22:46; Status DC Ziprasidone (Geodon Im) 10 mg 1X ONCE IM Last administered on 01/15/17 22:45 ; Start 01/15/17 at 22:45; Stop 01/15/17 at 22:46; Status DC Acetaminophen (Tylenol) 650 mg PRN Q6HRS PRN PO MILD PAIN / TEMP; Start at 03:45 Multi-Ingredient Ointment (Analgesic [place]) 1 rafat PRN QID PRN TP MUSCLE PAIN; Start 01/16/17 at 03:45 Al Hydroxide/Mg Hydroxide (Mylanta Plus Xs) 15 ml PRN AFTMEALHC PRN PO DYSPEPSIA; Start 01/16/17 at 03:45 Magnesium Hydroxide (Milk Of Magnesia) 2,400 mg PRN QHS PRN PO CONSTIPATION; Start 01/16/17 at 03:45 Divalproex Sodium (Depakote Sprinkles) 125 mg DAILY PO Last administered on 11:03; Start 01/16/17 at 09:00; Stop 01/17/17 at 18:37; Status DC Memantine (Namenda) 10 mg BID PO Last administered on 01/16/17 12:23; Start 01/16/17 at 09:00; Stop 01/16/17 at 19:00; Status DC Trazodone HCl (Desyrel) 75 mg HS PO Last administered on 01/16/17 19:38; Start 01/16/17 at 21:00; Stop 01/17/17 at 18:37; Status DC Trazodone HCl (Desyrel) 75 mg PRN QHS PRN PO IF REPEAT NEEDED Last administered on 01/16/17 20:29; Start 01/16/17 at 04:00; Stop 01/17/17 at 18 :37; Status DC Acetaminophen (Tylenol) 650 mg PRN Q48HR PRN PO PAIN; Start 01/16/17 at 06:15 ; Status UNV Losartan Potassium (Cozaar) 50 mg DAILY PO Last administered on 01/17/17 11: 03; Start 01/16/17 at 09:00 Polyethylene Glycol (miraLAX) 17 gm DAILY PO Last administered on 01/17/17 11 :04; Start 01/16/17 at 09:00 Simvastatin (Zocor) 40 mg HS PO Last administered on 01/17/17 19:51; Start 01/16/17 at 21:00 Cholestyramine Resin (Questran Light) 4 gm DAILY PO Last administered on 11:06; Start 01/16/17 at 09:00 Mesalamine (Pentasa) 1,000 mg [id number] PO Last administered on 01/17/17 19:53 ; Start 01/16/17 at 09:00 Fish Oil (Fish Oil) 1,000 mg TID PO Last administered on 01/17/17 19:50; Start 01/16/17 at 09:00 Potassium Chloride (Klor-Con) 40 meq 1X ONCE PO Last administered on 06:30; Start 01/16/17 at 06:30; Stop 01/16/17 at 06:31; Status DC Potassium Chloride (Klor-Con) 40 meq 1X ONCE PO ; Start 01/16/17 at 12:45; Stop 01/16/17 at 12:46; Status DC Vitamin D (Vitamin D3) 50,000 unit WEEKLY PO ; Start 01/16/17 at 17:15; Stop 01/16/17 at 18:10; Status DC Cyanocobalamin (Vitamin B-12) 1,000 mcg DAILY IM ; Start 01/16/17 at 17:15; Stop 01/16/17 at 18:10; Status DC Cyanocobalamin (Vitamin B-12) 1,000 mcg [id number] IM ; Start 02/13/17 at 09:00 Vitamin D (Vitamin D3) 50,000 unit WEEKLY PO Last administered on 01/17/17 11 :03; Start 01/17/17 at 09:00 Cyanocobalamin (Vitamin B-12) 1,000 mcg DAILY IM Last administered on 11:05; Start 01/17/17 at 09:00; Stop 01/21/17 at 08:59 Olanzapine (ZyPREXA ZYDIS) 2.5 mg PRN Q2HR PRN PO PSYCHOSIS Last administered on 01/16/17 19:39; Start 01/16/17 at 18:45 Potassium Chloride (Klor-Con) 40 meq BID PO Last administered on 01/17/17 19: 51; Start 01/17/17 at 12:00; Stop 01/18/17 at 23:00 Prenat Multivit/ Health [employer]/Iron/Folic Ac (Multivitamin ) 1 tab DAILYBFRSUP PO ; Start 01/17/17 at 17:00 Divalproex Sodium (Depakote Sprinkles) 125 mg TID PO Last administered on 01/17 19:49; Start 01/17/17 at 21:00 Trazodone HCl (Desyrel) 100 mg PRN QHS PRN PO IF REPEAT NEEDED; Start at 18:45 Trazodone HCl (Desyrel) 100 mg HS PO Last administered on 01/17/17 19:53; Start 01/17/17 at 21:00 Active Scripts Active Reported Tylenol (Acetaminophen) 325 Mg Tablet 650 Mg PO PRN Q48HR PRN Trazodone Hcl 50 Mg Tablet 75 Mg PO PRN 2PM Trazodone Hcl 150 Mg Tablet 75 Mg PO HS Simvastatin 40 Mg Tablet 40 Mg PO HS Questran Packet (Cholestyramine (With Sugar)) 4 Gm Powd.pack 4 Gm PO DAILY Pentasa (Mesalamine) 500 Mg Capsule.er 1,000 Mg PO QID Miralax (Polyethylene Glycol 3350) 17 Gm Powd.pack 17 Gm PO DAILY Namenda (Memantine Hcl) 10 Mg Tablet 10 Mg PO BID Losartan Potassium 50 Mg Tablet 50 Mg PO DAILY Fish Oil 1,200 mg Softgel ([place]-3/Dha/Epa/Fish Oil) 1 Each Capsule. 1 Each PO TID Depakote Sprinkle (Divalproex Sodium) 125 Mg Cap.sprink 125 Mg PO DAILY I have reviewed the current psychotropics carefully including drug interactions. Risk benefit ratio favors no change other than as noted in my dictated progress note. Diagnosis: Problems: (1) Mental status change (2) Anxiety disorder (3) Dementia in Alzheimer's disease with delusions (4) Dementia in Alzheimer's disease with depression (5) Dementia, vascular, with delusions (6) Dementia, vascular, with depression (7) Impulse control disorder GLADIS MCCOY MD Jan 17, 2017 20:08
[2017-01-18 06:01] VITALS: BP 113/58
[2017-01-18] MEDS: CHOLESTYRAMINE/ASPARTAME 4 GM PACKET PO SCH (10:57)
[2017-01-18] MEDS: POLYETHYLENE GLYCOL 3350 17 GM PACKET. PO SCH (10:57)
[2017-01-18] MEDS: LOSARTAN 50 MG TABLET. PO SCH (10:58)
[2017-01-18] MEDS: OMEGA-3 FATTY ACIDS/FISH OIL 1,000 MG CAPSULE. PO SCH ×3 (10:58→19:24)
[2017-01-18] MEDS: CYANOCOBALAMIN (VITAMIN B-12) 1,000 MCG/ML VIAL IM SCH (10:58)
[2017-01-18] MEDS: DIVALPROEX 125 MG CAP.SPRINK PO SCH ×3 (10:58→19:23)
[2017-01-18] MEDS: POTASSIUM CHLORIDE 10 MEQ TABLET.ER. PO SCH ×2 (10:58→19:24)
[2017-01-18] MEDS: MESALAMINE ER 250 MG CAPSULE.ER PO SCH ×4 (10:59→19:25)
[2017-01-18] MEDS: PRENATAL MULTIVITAMIN TABLET. PO SCH (17:34)
[2017-01-18] MEDS: SIMVASTATIN 40 MG TABLET. PO SCH (19:24)
[2017-01-18] MEDS: traZODone 100 MG TABLET. PO SCH (19:24)
--- NOTE | 2017-01-18 20:05 | PDOC ---
Exam Note: Didier Note: Please also refer to the separate dictated note~for this date of service dictated separately.~Patient seen individually. Discussed the patient with Nursing staff reviewed the chart.~Reviewed interim history and current functioning. Reviewed vital signs,~Labs/ Radiology~and current medications noted below. Continue current treatment with the changes noted in the dictated addendum note Assessment: Vital Signs: Vital Signs Date Time Temp Pulse Resp B/P (MAP) Pulse Ox O2 Delivery O2 Flow Rate FiO2 01/18/17 15:59 97.8 84 18 100 Room Air 01/18/17 10:58 113/58 I&O Intake and Output 01/18/17 07:00 Intake Total 480 ml Output Total 1 ml Balance 479 ml Intake Oral 480 ml Output Urine Total 1 ml Current Medications: Meds: Current Medications Lorazepam (Ativan) 2 mg 1X ONCE PO ; Start 01/15/17 at 20:15; Stop 01/15/17 at 20:16; Status DC Diphenhydramine HCl (Benadryl) 50 mg STK-MED ONCE .ROUTE ; Start 01/15/17 at 19 :28; Stop 01/15/17 at 19:29; Status DC Lorazepam (Ativan) 2 mg STK-MED ONCE .ROUTE ; Start 01/15/17 at 19:28; Stop at 19:29; Status DC Diphenhydramine HCl (Benadryl) 50 mg 1X ONCE IM Last administered on 19:35; Start 01/15/17 at 19:30; Stop 01/15/17 at 20:15; Status DC Lorazepam (Ativan) 2 mg 1X ONCE IM Last administered on 01/15/17 19:35; Start 01/15/17 at 19:30; Stop 01/15/17 at 20:15; Status DC Lorazepam (Ativan) 1 mg 1X ONCE PO ; Start 01/15/17 at 21:45; Stop 01/15/17 at 21:46; Status DC Lorazepam (Ativan) 2 mg 1X ONCE IM Last administered on 01/15/17 22:20; Start 01/15/17 at 22:45; Stop 01/15/17 at 22:46; Status DC Ziprasidone (Geodon Im) 10 mg 1X ONCE IM Last administered on 01/15/17 22:45 ; Start 01/15/17 at 22:45; Stop 01/15/17 at 22:46; Status DC Acetaminophen (Tylenol) 650 mg PRN Q6HRS PRN PO MILD PAIN / TEMP; Start at 03:45 Multi-Ingredient Ointment (Analgesic [place]) 1 rafat PRN QID PRN TP MUSCLE PAIN; Start 01/16/17 at 03:45 Al Hydroxide/Mg Hydroxide (Mylanta Plus Xs) 15 ml PRN AFTMEALHC PRN PO DYSPEPSIA; Start 01/16/17 at 03:45 Magnesium Hydroxide (Milk Of Magnesia) 2,400 mg PRN QHS PRN PO CONSTIPATION; Start 01/16/17 at 03:45 Divalproex Sodium (Depakote Sprinkles) 125 mg DAILY PO Last administered on 11:03; Start 01/16/17 at 09:00; Stop 01/17/17 at 18:37; Status DC Memantine (Namenda) 10 mg BID PO Last administered on 01/16/17 12:23; Start 01/16/17 at 09:00; Stop 01/16/17 at 19:00; Status DC Trazodone HCl (Desyrel) 75 mg HS PO Last administered on 01/16/17 19:38; Start 01/16/17 at 21:00; Stop 01/17/17 at 18:37; Status DC Trazodone HCl (Desyrel) 75 mg PRN QHS PRN PO IF REPEAT NEEDED Last administered on 01/16/17 20:29; Start 01/16/17 at 04:00; Stop 01/17/17 at 18 :37; Status DC Acetaminophen (Tylenol) 650 mg PRN Q48HR PRN PO PAIN; Start 01/16/17 at 06:15 ; Status UNV Losartan Potassium (Cozaar) 50 mg DAILY PO Last administered on 01/18/17 10: 58; Start 01/16/17 at 09:00 Polyethylene Glycol (miraLAX) 17 gm DAILY PO Last administered on 01/18/17 10 :57; Start 01/16/17 at 09:00 Simvastatin (Zocor) 40 mg HS PO Last administered on 01/18/17 19:24; Start 01/16/17 at 21:00 Cholestyramine Resin (Questran Light) 4 gm DAILY PO Last administered on 10:57; Start 01/16/17 at 09:00 Mesalamine (Pentasa) 1,000 mg [id number] PO Last administered on 01/18/17 19:25 ; Start 01/16/17 at 09:00 Fish Oil (Fish Oil) 1,000 mg TID PO Last administered on 01/18/17 19:24; Start 01/16/17 at 09:00 Potassium Chloride (Klor-Con) 40 meq 1X ONCE PO Last administered on 06:30; Start 01/16/17 at 06:30; Stop 01/16/17 at 06:31; Status DC Potassium Chloride (Klor-Con) 40 meq 1X ONCE PO ; Start 01/16/17 at 12:45; Stop 01/16/17 at 12:46; Status DC Vitamin D (Vitamin D3) 50,000 unit WEEKLY PO ; Start 01/16/17 at 17:15; Stop 01/16/17 at 18:10; Status DC Cyanocobalamin (Vitamin B-12) 1,000 mcg DAILY IM ; Start 01/16/17 at 17:15; Stop 01/16/17 at 18:10; Status DC Cyanocobalamin (Vitamin B-12) 1,000 mcg [id number] IM ; Start 02/13/17 at 09:00 Vitamin D (Vitamin D3) 50,000 unit WEEKLY PO Last administered on 01/17/17 11 :03; Start 01/17/17 at 09:00 Cyanocobalamin (Vitamin B-12) 1,000 mcg DAILY IM Last administered on 10:58; Start 01/17/17 at 09:00; Stop 01/21/17 at 08:59 Olanzapine (ZyPREXA ZYDIS) 2.5 mg PRN Q2HR PRN PO PSYCHOSIS Last administered on 01/16/17 19:39; Start 01/16/17 at 18:45 Potassium Chloride (Klor-Con) 40 meq BID PO Last administered on 01/18/17 19: 24; Start 01/17/17 at 12:00; Stop 01/18/17 at 23:00 Prenat Multivit/ [place]/Iron/Folic Ac (Multivitamin ) 1 tab DAILYBFRSUP PO Last administered on 01/18/17 17:34; Start 01/17/17 at 17:00 Divalproex Sodium (Depakote Sprinkles) 125 mg TID PO Last administered on 01/18 19:23; Start 01/17/17 at 21:00 Trazodone HCl (Desyrel) 100 mg PRN QHS PRN PO IF REPEAT NEEDED; Start at 18:45 Trazodone HCl (Desyrel) 100 mg HS PO Last administered on 01/18/17 19:24; Start 01/17/17 at 21:00 Active Scripts Active Reported Tylenol (Acetaminophen) 325 Mg Tablet 650 Mg PO PRN Q48HR PRN Trazodone Hcl 50 Mg Tablet 75 Mg PO PRN 2PM Trazodone Hcl 150 Mg Tablet 75 Mg PO HS Simvastatin 40 Mg Tablet 40 Mg PO HS Questran Packet (Cholestyramine (With Sugar)) 4 Gm Powd.pack 4 Gm PO DAILY Pentasa (Mesalamine) 500 Mg Capsule.er 1,000 Mg PO QID Miralax (Polyethylene Glycol 3350) 17 Gm Powd.pack 17 Gm PO DAILY Namenda (Memantine Hcl) 10 Mg Tablet 10 Mg PO BID Losartan Potassium 50 Mg Tablet 50 Mg PO DAILY Fish Oil 1,200 mg Softgel ([place]-3/Dha/Epa/Fish Oil) 1 Each Capsule.dr 1 Each PO TID Depakote Sprinkle (Divalproex Sodium) 125 Mg Cap.sprink 125 Mg PO DAILY I have reviewed the current psychotropics carefully including drug interactions. Risk benefit ratio favors no change other than as noted in my dictated progress note. Diagnosis: Problems: (1) Mental status change (2) Anxiety disorder (3) Dementia in Alzheimer's disease with delusions (4) Dementia in Alzheimer's disease with depression (5) Dementia, vascular, with delusions (6) Dementia, vascular, with depression (7) Impulse control disorder GLADIS MCCOY MD Jan 18, 2017 20:05
[2017-01-19 05:45] VITALS: BP 142/83
[2017-01-19] MEDS: CHOLESTYRAMINE/ASPARTAME 4 GM PACKET PO SCH (09:00)
[2017-01-19] MEDS: CYANOCOBALAMIN (VITAMIN B-12) 1,000 MCG/ML VIAL IM SCH (09:43)
[2017-01-19] MEDS: LOSARTAN 50 MG TABLET. PO SCH (09:43)
[2017-01-19] MEDS: POLYETHYLENE GLYCOL 3350 17 GM PACKET. PO SCH (09:43)
[2017-01-19] MEDS: OMEGA-3 FATTY ACIDS/FISH OIL 1,000 MG CAPSULE. PO SCH ×3 (09:43→20:34)
[2017-01-19] MEDS: DIVALPROEX 125 MG CAP.SPRINK PO SCH ×3 (09:43→20:34)
[2017-01-19] MEDS: MESALAMINE ER 250 MG CAPSULE.ER PO SCH ×4 (09:46→20:35)
[2017-01-19 15:53] VITALS: BP 158/77
[2017-01-19] MEDS: PRENATAL MULTIVITAMIN TABLET. PO SCH (17:15)
--- NOTE | 2017-01-19 20:25 | PDOC ---
Exam Note: Didier Note: Please also refer to the separate dictated note~for this date of service dictated separately.~Patient seen individually. Discussed the patient with Nursing staff reviewed the chart.~Reviewed interim history and current functioning. Reviewed vital signs,~Labs/ Radiology~and current medications noted below. Continue current treatment with the changes noted in the dictated addendum note Assessment: Vital Signs: Vital Signs Date Time Temp Pulse Resp B/P (MAP) Pulse Ox O2 Delivery O2 Flow Rate FiO2 01/19/17 15:53 99.1 88 20 158/77 (104) 99 01/18/17 15:59 Room Air I&O Intake and Output 01/19/17 07:00 Intake Total 600 ml Balance 600 ml Intake Oral 600 ml Current Medications: Meds: Current Medications Lorazepam (Ativan) 2 mg 1X ONCE PO ; Start 01/15/17 at 20:15; Stop 01/15/17 at 20:16; Status DC Diphenhydramine HCl (Benadryl) 50 mg STK-MED ONCE .ROUTE ; Start 01/15/17 at 19 :28; Stop 01/15/17 at 19:29; Status DC Lorazepam (Ativan) 2 mg STK-MED ONCE .ROUTE ; Start 01/15/17 at 19:28; Stop at 19:29; Status DC Diphenhydramine HCl (Benadryl) 50 mg 1X ONCE IM Last administered on 19:35; Start 01/15/17 at 19:30; Stop 01/15/17 at 20:15; Status DC Lorazepam (Ativan) 2 mg 1X ONCE IM Last administered on 01/15/17 19:35; Start 01/15/17 at 19:30; Stop 01/15/17 at 20:15; Status DC Lorazepam (Ativan) 1 mg 1X ONCE PO ; Start 01/15/17 at 21:45; Stop 01/15/17 at 21:46; Status DC Lorazepam (Ativan) 2 mg 1X ONCE IM Last administered on 01/15/17 22:20; Start 01/15/17 at 22:45; Stop 01/15/17 at 22:46; Status DC Ziprasidone (Geodon Im) 10 mg 1X ONCE IM Last administered on 01/15/17 22:45 ; Start 01/15/17 at 22:45; Stop 01/15/17 at 22:46; Status DC Acetaminophen (Tylenol) 650 mg PRN Q6HRS PRN PO MILD PAIN / TEMP; Start at 03:45 Multi-Ingredient Ointment (Analgesic [place]) 1 rafat PRN QID PRN TP MUSCLE PAIN; Start 01/16/17 at 03:45 Al Hydroxide/Mg Hydroxide (Mylanta Plus Xs) 15 ml PRN AFTMEALHC PRN PO DYSPEPSIA; Start 01/16/17 at 03:45 Magnesium Hydroxide (Milk Of Magnesia) 2,400 mg PRN QHS PRN PO CONSTIPATION; Start 01/16/17 at 03:45 Divalproex Sodium (Depakote Sprinkles) 125 mg DAILY PO Last administered on 11:03; Start 01/16/17 at 09:00; Stop 01/17/17 at 18:37; Status DC Memantine (Namenda) 10 mg BID PO Last administered on 01/16/17 12:23; Start 01/16/17 at 09:00; Stop 01/16/17 at 19:00; Status DC Trazodone HCl (Desyrel) 75 mg HS PO Last administered on 01/16/17 19:38; Start 01/16/17 at 21:00; Stop 01/17/17 at 18:37; Status DC Trazodone HCl (Desyrel) 75 mg PRN QHS PRN PO IF REPEAT NEEDED Last administered on 01/16/17 20:29; Start 01/16/17 at 04:00; Stop 01/17/17 at 18 :37; Status DC Acetaminophen (Tylenol) 650 mg PRN Q48HR PRN PO PAIN; Start 01/16/17 at 06:15 ; Status UNV Losartan Potassium (Cozaar) 50 mg DAILY PO Last administered on 01/19/17 09:43 ; Start 01/16/17 at 09:00 Polyethylene Glycol (miraLAX) 17 gm DAILY PO Last administered on 01/19/17 09: 43; Start 01/16/17 at 09:00 Simvastatin (Zocor) 40 mg HS PO Last administered on 01/18/17 19:24; Start 01/16/17 at 21:00 Cholestyramine Resin (Questran Light) 4 gm DAILY PO Last administered on 10:57; Start 01/16/17 at 09:00 Mesalamine (Pentasa) 1,000 mg [id number] PO Last administered on 01/19/17 17:15; Start 01/16/17 at 09:00 Fish Oil (Fish Oil) 1,000 mg TID PO Last administered on 01/19/17 14:33; Start 01/16/17 at 09:00 Potassium Chloride (Klor-Con) 40 meq 1X ONCE PO Last administered on 06:30; Start 01/16/17 at 06:30; Stop 01/16/17 at 06:31; Status DC Potassium Chloride (Klor-Con) 40 meq 1X ONCE PO ; Start 01/16/17 at 12:45; Stop 01/16/17 at 12:46; Status DC Vitamin D (Vitamin D3) 50,000 unit WEEKLY PO ; Start 01/16/17 at 17:15; Stop 01/16/17 at 18:10; Status DC Cyanocobalamin (Vitamin B-12) 1,000 mcg DAILY IM ; Start 01/16/17 at 17:15; Stop 01/16/17 at 18:10; Status DC Cyanocobalamin (Vitamin B-12) 1,000 mcg [id number] IM ; Start 02/13/17 at 09:00 Vitamin D (Vitamin D3) 50,000 unit WEEKLY PO Last administered on 01/17/17 11 :03; Start 01/17/17 at 09:00 Cyanocobalamin (Vitamin B-12) 1,000 mcg DAILY IM Last administered on 09:43; Start 01/17/17 at 09:00; Stop 01/21/17 at 08:59 Olanzapine (ZyPREXA ZYDIS) 2.5 mg PRN Q2HR PRN PO PSYCHOSIS Last administered on 01/16/17 19:39; Start 01/16/17 at 18:45 Potassium Chloride (Klor-Con) 40 meq BID PO Last administered on 01/18/17 19: 24; Start 01/17/17 at 12:00; Stop 01/18/17 at 23:01; Status DC Prenat Multivit/ [place]/Iron/Folic Ac (Multivitamin ) 1 tab DAILYBFRSUP PO Last administered on 01/19/17 17:15; Start 01/17/17 at 17:00 Divalproex Sodium (Depakote Sprinkles) 125 mg TID PO Last administered on 14:33; Start 01/17/17 at 21:00 Trazodone HCl (Desyrel) 100 mg PRN QHS PRN PO IF REPEAT NEEDED; Start at 18:45 Trazodone HCl (Desyrel) 100 mg HS PO Last administered on 01/18/17 19:24; Start 01/17/17 at 21:00 Active Scripts Active Reported Tylenol (Acetaminophen) 325 Mg Tablet 650 Mg PO PRN Q48HR PRN Trazodone Hcl 50 Mg Tablet 75 Mg PO PRN 2PM Trazodone Hcl 150 Mg Tablet 75 Mg PO HS Simvastatin 40 Mg Tablet 40 Mg PO HS Questran Packet (Cholestyramine (With Sugar)) 4 Gm Powd.pack 4 Gm PO DAILY Pentasa (Mesalamine) 500 Mg Capsule.er 1,000 Mg PO QID Miralax (Polyethylene Glycol 3350) 17 Gm Powd.pack 17 Gm PO DAILY Namenda (Memantine Hcl) 10 Mg Tablet 10 Mg PO BID Losartan Potassium 50 Mg Tablet 50 Mg PO DAILY Fish Oil 1,200 mg Softgel ([place]-3/Dha/Epa/Fish Oil) 1 Each Capsule.dr 1 Each PO TID Depakote Sprinkle (Divalproex Sodium) 125 Mg Cap.sprink 125 Mg PO DAILY I have reviewed the current psychotropics carefully including drug interactions. Risk benefit ratio favors no change other than as noted in my dictated progress note. Diagnosis: Problems: (1) Mental status change (2) Anxiety disorder (3) Dementia in Alzheimer's disease with delusions (4) Dementia in Alzheimer's disease with depression (5) Dementia, vascular, with delusions (6) Dementia, vascular, with depression (7) Impulse control disorder GLADIS MCCOY MD Jan 19, 2017 20:25
[2017-01-19] MEDS: SIMVASTATIN 40 MG TABLET. PO SCH (20:34)
[2017-01-19] MEDS: traZODone 100 MG TABLET. PO SCH (20:34)
[2017-01-19] MEDS: traZODone 50 MG TABLET. PO PRN (23:51)
--- NOTE | 2017-01-20 04:27 | PN ---
DATE: 01/17/2017 PSYCHIATRIC PROGRESS NOTE This late entry 01/17/2017 covers elements not covered in my initial note. I met with the patient evening of 01/17/2017. She slept 5 hours previous evening. Potassium low at 2.9, being replaced. She is combative after lunch, in the dining room, received Zyprexa previous evening at 2100 for agitation, slept 5 hours. REVIEW OF SYSTEMS: No CV, , pulmonary, eye, ENT system symptoms on review. Reliability poor. MENTAL STATUS EXAM: Oriented to herself. Insight, judgment, recent and remote memory, attention, concentration, fund of knowledge poor, consistent with her diagnosis. LABORATORY DATA: Valproic acid level is 47. PLAN: On Depakote Sprinkles 125 mg daily. We will increase it to 125 mg 3 times a day. Check CBC, CMP, valproic acid level in 3 days. Increase trazodone from 75 mg at bedtime to 100 mg at bedtime schedule, may repeat x 1 for insomnia. Continue Namenda 10 b.i.d., Zyprexa p.r.n. Adjust further as clinically indicated. GLADIS MCCOY MD DR: VIVIAN/alma JOB#: [id number] / [id number]
--- NOTE | 2017-01-20 04:45 | PN ---
DATE: 01/18/2017 This is a late entry, covers the elements not covered in my initial note 01/18/2017. I met with the patient the evening of 01/18/2017 and staffed at a treatment team meeting with the entire team morning of 01/18/2017, and the patient's daughter, Alannah, attended the conference. Reviewed the patient's history, diagnosis, progress. Per activity therapy, the patient has little interaction in groups, not around group usually. She has been shouting out disruptive most of the time. Nevertheless, this does appear to be getting a little better. Appetite is 50%. Slept 6-3/4 hours previous evening. No CV, , pulmonary, eye, ENT system symptoms on review. Somewhat calmer, less agitated on 01/18/2017. MENTAL STATUS EXAM: Oriented to herself. Insight, judgment, recent and remote memory, attention, concentration, fund of knowledge poor, consistent with her diagnoses, 1. Major neurocognitive disorder. 2. Alzheimer, vascular with depression. 3. Delusion. 4. Behavioral disturbance. 5. Anxiety disorder, unspecified. 6. Impulse control disorder, unspecified; rest unchanged. The daughter states the patient seems to recognize various family members. PLAN: Continue psychotropics mentioned in my initial note. Depakote has been increased as was the trazodone, rest unchanged for now. May consider adding an SSRI agent depending on her progress. GLADIS MCCOY MD DR: VIVIAN/alma JOB#: [id number] / [id number]
[2017-01-20 06:08] VITALS: BP 102/65
[2017-01-20 07:30] LABS: BASO % 0 % (0-3); EOS # 0.1 x10^3/uL (0.0-0.7); EOS % 2 % (0-3); HEMOGLOBIN 10.4 g/dL (12.0-15.5); LYMPH # 1.1 x10^3/uL (1.0-4.8); LYMPH % 26 % (24-48); MEAN CORPUSCULAR HEMOGLOBIN 32 pg (25-35); MEAN CORPUSCULAR HGB CONC 35 g/dL (31-37); MEAN CORPUSCULAR VOLUME 93 fL (79-100); MONO # 0.5 x10^3/uL (0.0-1.1); MONO % 11 % (0-9); NEUT # 2.7 x10^3uL (1.8-7.7); NEUT % 61 % (31-73); PLATELET COUNT 244 x10^3/uL (140-400); RED BLOOD COUNT 3.22 x10^6/uL (3.50-5.40); RED CELL DISTRIBUTION WIDTH 14.2 % (11.5-14.5); WHITE BLOOD COUNT 4.4 x10^3/uL (4.0-11.0)
[2017-01-20 07:44] LABS: ALBUMIN 2.8 g/dL (3.4-5.0); ALK PHOS 44 U/L (46-116); ALT (SGPT) 26 U/L (14-59); ANION GAP 6 (6-14); AST (SGOT) 24 U/L (15-37); BLOOD UREA NITROGEN 11 mg/dL (7-20); BUN/CREATININE RATIO 14 (6-20); CALCIUM 8.6 mg/dL (8.5-10.1); CARBON DIOXIDE 29 mmol/L (21-32); CHLORIDE 107 mmol/L (98-107); CREATININE 0.8 mg/dL (0.6-1.0); GFR 69.7; GLUCOSE 100 mg/dL (70-99); POTASSIUM 4.2 mmol/L (3.5-5.1); SODIUM 142 mmol/L (136-145); TOTAL BILIRUBIN 0.8 mg/dL (0.2-1.0); TOTAL PROTEIN 5.7 g/dL (6.4-8.2)
[2017-01-20 07:49] LABS: VAL ACID 30 mcg/mL (50-100)
[2017-01-20] MEDS: CYANOCOBALAMIN (VITAMIN B-12) 1,000 MCG/ML VIAL IM SCH ×2 (09:00→09:42)
[2017-01-20] MEDS: LOSARTAN 50 MG TABLET. PO SCH (09:00)
[2017-01-20] MEDS: DIVALPROEX 125 MG CAP.SPRINK PO SCH ×3 (09:43→19:22)
[2017-01-20] MEDS: PRENATAL MULTIVITAMIN TABLET. PO SCH ×2 (09:43→17:03)
[2017-01-20] MEDS: CHOLECALCIFEROL (VITAMIN D3) 50,000 UNIT CAPSULE PO SCH (09:43)
[2017-01-20] MEDS: POLYETHYLENE GLYCOL 3350 17 GM PACKET. PO SCH (09:43)
[2017-01-20] MEDS: OMEGA-3 FATTY ACIDS/FISH OIL 1,000 MG CAPSULE. PO SCH ×3 (09:43→19:22)
[2017-01-20] MEDS: CHOLESTYRAMINE/ASPARTAME 4 GM PACKET PO SCH (09:47)
[2017-01-20] MEDS: MESALAMINE ER 250 MG CAPSULE.ER PO SCH ×4 (09:48→19:24)
[2017-01-20] MEDS: SIMVASTATIN 40 MG TABLET. PO SCH (19:22)
[2017-01-20] MEDS: traZODone 100 MG TABLET. PO SCH (19:22)
--- NOTE | 2017-01-20 21:50 | PDOC ---
Exam Note: Didier Note: Please also refer to the separate dictated note~for this date of service dictated separately.~Patient seen individually. Discussed the patient with Nursing staff reviewed the chart.~Reviewed interim history and current functioning. Reviewed vital signs,~Labs/ Radiology~and current medications noted below. Continue current treatment with the changes noted in the dictated addendum note Assessment: Vital Signs: Vital Signs Date Time Temp Pulse Resp B/P (MAP) Pulse Ox O2 Delivery O2 Flow Rate FiO2 01/20/17 16:31 99.0 95 18 97 01/20/17 09:00 102/65 01/18/17 15:59 Room Air I&O Intake and Output 01/20/17 07:00 Intake Total 840 ml Balance 840 ml Intake Oral 840 ml # Bowel Movements 2 Labs: Laboratory Tests Test 01/20/17 07:00 White Blood Count 4.4 x10^3/uL (4.0-11.0) Red Blood Count 3.22 x10^6/uL (3.50-5.40) L Hemoglobin 10.4 g/dL (12.0-15.5) L Hematocrit 30.0 % (36.0-47.0) L Mean Corpuscular Volume 93 fL (79-100) Mean Corpuscular Hemoglobin 32 pg (25-35) Mean Corpuscular Hemoglobin Concent 35 g/dL (31-37) Red Cell Distribution Width 14.2 % (11.5-14.5) Platelet Count 244 x10^3/uL (140-400) Neutrophils (%) (Auto) 61 % (31-73) Lymphocytes (%) (Auto) 26 % (24-48) Monocytes (%) (Auto) 11 % (0-9) H Eosinophils (%) (Auto) 2 % (0-3) Basophils (%) (Auto) 0 % (0-3) Neutrophils # (Auto) 2.7 x10^3uL (1.8-7.7) Lymphocytes # (Auto) 1.1 x10^3/uL (1.0-4.8) Monocytes # (Auto) 0.5 x10^3/uL (0.0-1.1) Eosinophils # (Auto) 0.1 x10^3/uL (0.0-0.7) Basophils # (Auto) 0.0 x10^3/uL (0.0-0.2) Sodium Level 142 mmol/L (136-145) Potassium Level 4.2 mmol/L (3.5-5.1) Chloride Level 107 mmol/L (98-107) Carbon Dioxide Level 29 mmol/L (21-32) Anion Gap 6 (6-14) Blood Urea Nitrogen 11 mg/dL (7-20) Creatinine 0.8 mg/dL (0.6-1.0) Estimated GFR (Cockcroft-Gault) 69.7 BUN/Creatinine Ratio 14 (6-20) Glucose Level 100 mg/dL (70-99) H Calcium Level 8.6 mg/dL (8.5-10.1) Total Bilirubin 0.8 mg/dL (0.2-1.0) Aspartate Amino Transferase (AST) 24 U/L (15-37) Alanine Aminotransferase (ALT) 26 U/L (14-59) Alkaline Phosphatase 44 U/L (46-116) L Total Protein 5.7 g/dL (6.4-8.2) L Albumin 2.8 g/dL (3.4-5.0) L Albumin/Globulin Ratio 1.0 (1.0-1.7) Valproic Acid Level 30 mcg/mL (50-100) L Valproic Acid Last Dose Date 01/19/17 Valproic Acid Last Dose Time 2100 Current Medications: Meds: Current Medications Lorazepam (Ativan) 2 mg 1X ONCE PO ; Start 01/15/17 at 20:15; Stop 01/15/17 at 20:16; Status DC Diphenhydramine HCl (Benadryl) 50 mg STK-MED ONCE .ROUTE ; Start 01/15/17 at 19 :28; Stop 01/15/17 at 19:29; Status DC Lorazepam (Ativan) 2 mg STK-MED ONCE .ROUTE ; Start 01/15/17 at 19:28; Stop at 19:29; Status DC Diphenhydramine HCl (Benadryl) 50 mg 1X ONCE IM Last administered on 19:35; Start 01/15/17 at 19:30; Stop 01/15/17 at 20:15; Status DC Lorazepam (Ativan) 2 mg 1X ONCE IM Last administered on 01/15/17 19:35; Start 01/15/17 at 19:30; Stop 01/15/17 at 20:15; Status DC Lorazepam (Ativan) 1 mg 1X ONCE PO ; Start 01/15/17 at 21:45; Stop 01/15/17 at 21:46; Status DC Lorazepam (Ativan) 2 mg 1X ONCE IM Last administered on 01/15/17 22:20; Start 01/15/17 at 22:45; Stop 01/15/17 at 22:46; Status DC Ziprasidone (Geodon Im) 10 mg 1X ONCE IM Last administered on 01/15/17 22:45 ; Start 01/15/17 at 22:45; Stop 01/15/17 at 22:46; Status DC Acetaminophen (Tylenol) 650 mg PRN Q6HRS PRN PO MILD PAIN / TEMP; Start at 03:45 Multi-Ingredient Ointment (Analgesic [place]) 1 rafat PRN QID PRN TP MUSCLE PAIN; Start 01/16/17 at 03:45 Al Hydroxide/Mg Hydroxide (Mylanta Plus Xs) 15 ml PRN AFTMEALHC PRN PO DYSPEPSIA; Start 01/16/17 at 03:45 Magnesium Hydroxide (Milk Of Magnesia) 2,400 mg PRN QHS PRN PO CONSTIPATION; Start 01/16/17 at 03:45 Divalproex Sodium (Depakote Sprinkles) 125 mg DAILY PO Last administered on 11:03; Start 01/16/17 at 09:00; Stop 01/17/17 at 18:37; Status DC Memantine (Namenda) 10 mg BID PO Last administered on 01/16/17 12:23; Start 01/16/17 at 09:00; Stop 01/16/17 at 19:00; Status DC Trazodone HCl (Desyrel) 75 mg HS PO Last administered on 01/16/17 19:38; Start 01/16/17 at 21:00; Stop 01/17/17 at 18:37; Status DC Trazodone HCl (Desyrel) 75 mg PRN QHS PRN PO IF REPEAT NEEDED Last administered on 01/16/17 20:29; Start 01/16/17 at 04:00; Stop 01/17/17 at 18 :37; Status DC Acetaminophen (Tylenol) 650 mg PRN Q48HR PRN PO PAIN; Start 01/16/17 at 06:15 ; Status UNV Losartan Potassium (Cozaar) 50 mg DAILY PO Last administered on 01/19/17 09:43 ; Start 01/16/17 at 09:00 Polyethylene Glycol (miraLAX) 17 gm DAILY PO Last administered on 01/20/17 09: 43; Start 01/16/17 at 09:00 Simvastatin (Zocor) 40 mg HS PO Last administered on 01/20/17 19:22; Start at 21:00 Cholestyramine Resin (Questran Light) 4 gm DAILY PO Last administered on 09:47; Start 01/16/17 at 09:00 Mesalamine (Pentasa) 1,000 mg [id number] PO Last administered on 01/20/17 19:24; Start 01/16/17 at 09:00 Fish Oil (Fish Oil) 1,000 mg TID PO Last administered on 01/20/17 19:22; Start 01/16/17 at 09:00 Potassium Chloride (Klor-Con) 40 meq 1X ONCE PO Last administered on 06:30; Start 01/16/17 at 06:30; Stop 01/16/17 at 06:31; Status DC Potassium Chloride (Klor-Con) 40 meq 1X ONCE PO ; Start 01/16/17 at 12:45; Stop 01/16/17 at 12:46; Status DC Vitamin D (Vitamin D3) 50,000 unit WEEKLY PO ; Start 01/16/17 at 17:15; Stop 01/16/17 at 18:10; Status DC Cyanocobalamin (Vitamin B-12) 1,000 mcg DAILY IM ; Start 01/16/17 at 17:15; Stop 01/16/17 at 18:10; Status DC Cyanocobalamin (Vitamin B-12) 1,000 mcg [id number] IM ; Start 02/13/17 at 09:00 Vitamin D (Vitamin D3) 50,000 unit WEEKLY PO Last administered on 01/20/17 09: 43; Start 01/17/17 at 09:00 Cyanocobalamin (Vitamin B-12) 1,000 mcg DAILY IM Last administered on 09:43; Start 01/17/17 at 09:00; Stop 01/21/17 at 08:59 Olanzapine (ZyPREXA ZYDIS) 2.5 mg PRN Q2HR PRN PO PSYCHOSIS Last administered on 01/16/17 19:39; Start 01/16/17 at 18:45 Potassium Chloride (Klor-Con) 40 meq BID PO Last administered on 01/18/17 19: 24; Start 01/17/17 at 12:00; Stop 01/18/17 at 23:01; Status DC Prenat Multivit/ Casing Inspector/Iron/Folic Ac (Multivitamin ) 1 tab DAILYBFRSUP PO Last administered on 01/20/17 17:03; Start 01/17/17 at 17:00 Divalproex Sodium (Depakote Sprinkles) 125 mg TID PO Last administered on 19:22; Start 01/17/17 at 21:00 Trazodone HCl (Desyrel) 100 mg PRN QHS PRN PO IF REPEAT NEEDED Last administered on 01/19/17 23:51; Start 01/17/17 at 18:45 Trazodone HCl (Desyrel) 100 mg HS PO Last administered on 01/20/17 19:22; Start 01/17/17 at 21:00 Sertraline HCl (Zoloft) 25 mg DAILY PO ; Start 01/21/17 at 09:00 Active Scripts Active Reported Tylenol (Acetaminophen) 325 Mg Tablet 650 Mg PO PRN Q48HR PRN Trazodone Hcl 50 Mg Tablet 75 Mg PO PRN 2PM Trazodone Hcl 150 Mg Tablet 75 Mg PO HS Simvastatin 40 Mg Tablet 40 Mg PO HS Questran Packet (Cholestyramine (With Sugar)) 4 Gm Powd.pack 4 Gm PO DAILY Pentasa (Mesalamine) 500 Mg Capsule.er 1,000 Mg PO QID Miralax (Polyethylene Glycol 3350) 17 Gm Powd.pack 17 Gm PO DAILY Namenda (Memantine Hcl) 10 Mg Tablet 10 Mg PO BID Losartan Potassium 50 Mg Tablet 50 Mg PO DAILY Fish Oil 1,200 mg Softgel ([place]-3/Dha/Epa/Fish Oil) 1 Each Capsule.dr 1 Each PO TID Depakote Sprinkle (Divalproex Sodium) 125 Mg Cap.sprink 125 Mg PO DAILY I have reviewed the current psychotropics carefully including drug interactions. Risk benefit ratio favors no change other than as noted in my dictated progress note. Diagnosis: Problems: (1) Mental status change (2) Anxiety disorder (3) Dementia in Alzheimer's disease with delusions (4) Dementia in Alzheimer's disease with depression (5) Dementia, vascular, with delusions (6) Dementia, vascular, with depression (7) Impulse control disorder GLADIS MCCOY MD Jan 20, 2017 21:50
[2017-01-21 05:56] VITALS: BP 106/62
[2017-01-21] MEDS: OMEGA-3 FATTY ACIDS/FISH OIL 1,000 MG CAPSULE. PO SCH ×3 (08:09→20:18)
[2017-01-21] MEDS: MESALAMINE ER 250 MG CAPSULE.ER PO SCH ×4 (08:09→19:31)
[2017-01-21] MEDS: CHOLESTYRAMINE/ASPARTAME 4 GM PACKET PO SCH (08:09)
[2017-01-21] MEDS: DIVALPROEX 125 MG CAP.SPRINK PO SCH ×3 (08:09→19:31)
[2017-01-21] MEDS: LOSARTAN 50 MG TABLET. PO SCH (08:10)
[2017-01-21] MEDS: POLYETHYLENE GLYCOL 3350 17 GM PACKET. PO SCH (08:10)
[2017-01-21] MEDS ORDERED: SERTRALINE 25 MG TABLET. PO SCH (09:00)
[2017-01-21 16:15] VITALS: BP 132/78
[2017-01-21] MEDS: PRENATAL MULTIVITAMIN TABLET. PO SCH (17:00)
[2017-01-21] MEDS: traZODone 100 MG TABLET. PO SCH (19:31)
[2017-01-21] MEDS: SIMVASTATIN 40 MG TABLET. PO SCH (19:31)
--- NOTE | 2017-01-21 20:06 | PDOC ---
Exam Note: Didier Note: Please also refer to the separate dictated note~for this date of service dictated separately.~Patient seen individually. Discussed the patient with Nursing staff reviewed the chart.~Reviewed interim history and current functioning. Reviewed vital signs,~Labs/ Radiology~and current medications noted below. Continue current treatment with the changes noted in the dictated addendum note Assessment: Vital Signs: Vital Signs Date Time Temp Pulse Resp B/P (MAP) Pulse Ox O2 Delivery O2 Flow Rate FiO2 01/21/17 16:15 98.2 97 18 132/78 (96) 97 01/18/17 15:59 Room Air I&O Intake and Output 01/21/17 07:00 Intake Total 600 ml Balance 600 ml Intake Oral 600 ml Current Medications: Meds: Current Medications Lorazepam (Ativan) 2 mg 1X ONCE PO ; Start 01/15/17 at 20:15; Stop 01/15/17 at 20:16; Status DC Diphenhydramine HCl (Benadryl) 50 mg STK-MED ONCE .ROUTE ; Start 01/15/17 at 19 :28; Stop 01/15/17 at 19:29; Status DC Lorazepam (Ativan) 2 mg STK-MED ONCE .ROUTE ; Start 01/15/17 at 19:28; Stop at 19:29; Status DC Diphenhydramine HCl (Benadryl) 50 mg 1X ONCE IM Last administered on 19:35; Start 01/15/17 at 19:30; Stop 01/15/17 at 20:15; Status DC Lorazepam (Ativan) 2 mg 1X ONCE IM Last administered on 01/15/17 19:35; Start 01/15/17 at 19:30; Stop 01/15/17 at 20:15; Status DC Lorazepam (Ativan) 1 mg 1X ONCE PO ; Start 01/15/17 at 21:45; Stop 01/15/17 at 21:46; Status DC Lorazepam (Ativan) 2 mg 1X ONCE IM Last administered on 01/15/17 22:20; Start 01/15/17 at 22:45; Stop 01/15/17 at 22:46; Status DC Ziprasidone (Geodon Im) 10 mg 1X ONCE IM Last administered on 01/15/17 22:45 ; Start 01/15/17 at 22:45; Stop 01/15/17 at 22:46; Status DC Acetaminophen (Tylenol) 650 mg PRN Q6HRS PRN PO MILD PAIN / TEMP; Start at 03:45 Multi-Ingredient Ointment (Analgesic [place]) 1 rafat PRN QID PRN TP MUSCLE PAIN; Start 01/16/17 at 03:45 Al Hydroxide/Mg Hydroxide (Mylanta Plus Xs) 15 ml PRN AFTMEALHC PRN PO DYSPEPSIA; Start 01/16/17 at 03:45 Magnesium Hydroxide (Milk Of Magnesia) 2,400 mg PRN QHS PRN PO CONSTIPATION; Start 01/16/17 at 03:45 Divalproex Sodium (Depakote Sprinkles) 125 mg DAILY PO Last administered on 11:03; Start 01/16/17 at 09:00; Stop 01/17/17 at 18:37; Status DC Memantine (Namenda) 10 mg BID PO Last administered on 01/16/17 12:23; Start 01/16/17 at 09:00; Stop 01/16/17 at 19:00; Status DC Trazodone HCl (Desyrel) 75 mg HS PO Last administered on 01/16/17 19:38; Start 01/16/17 at 21:00; Stop 01/17/17 at 18:37; Status DC Trazodone HCl (Desyrel) 75 mg PRN QHS PRN PO IF REPEAT NEEDED Last administered on 01/16/17 20:29; Start 01/16/17 at 04:00; Stop 01/17/17 at 18 :37; Status DC Acetaminophen (Tylenol) 650 mg PRN Q48HR PRN PO PAIN; Start 01/16/17 at 06:15 ; Status UNV Losartan Potassium (Cozaar) 50 mg DAILY PO Last administered on 01/19/17 09:43 ; Start 01/16/17 at 09:00 Polyethylene Glycol (miraLAX) 17 gm DAILY PO Last administered on 01/21/17 08: 10; Start 01/16/17 at 09:00 Simvastatin (Zocor) 40 mg HS PO Last administered on 01/21/17 19:31; Start at 21:00 Cholestyramine Resin (Questran Light) 4 gm DAILY PO Last administered on 08:09; Start 01/16/17 at 09:00 Mesalamine (Pentasa) 1,000 mg [id number] PO Last administered on 01/21/17 19:31; Start 01/16/17 at 09:00 Fish Oil (Fish Oil) 1,000 mg TID PO Last administered on 01/21/17 14:26; Start 01/16/17 at 09:00 Potassium Chloride (Klor-Con) 40 meq 1X ONCE PO Last administered on 06:30; Start 01/16/17 at 06:30; Stop 01/16/17 at 06:31; Status DC Potassium Chloride (Klor-Con) 40 meq 1X ONCE PO ; Start 01/16/17 at 12:45; Stop 01/16/17 at 12:46; Status DC Vitamin D (Vitamin D3) 50,000 unit WEEKLY PO ; Start 01/16/17 at 17:15; Stop 01/16/17 at 18:10; Status DC Cyanocobalamin (Vitamin B-12) 1,000 mcg DAILY IM ; Start 01/16/17 at 17:15; Stop 01/16/17 at 18:10; Status DC Cyanocobalamin (Vitamin B-12) 1,000 mcg [id number] IM ; Start 02/13/17 at 09:00 Vitamin D (Vitamin D3) 50,000 unit WEEKLY PO Last administered on 01/20/17 09: 43; Start 01/17/17 at 09:00 Cyanocobalamin (Vitamin B-12) 1,000 mcg DAILY IM Last administered on 09:43; Start 01/17/17 at 09:00; Stop 01/21/17 at 08:59; Status DC Olanzapine (ZyPREXA ZYDIS) 2.5 mg PRN Q2HR PRN PO PSYCHOSIS Last administered on 01/16/17 19:39; Start 01/16/17 at 18:45 Potassium Chloride (Klor-Con) 40 meq BID PO Last administered on 01/18/17 19: 24; Start 01/17/17 at 12:00; Stop 01/18/17 at 23:01; Status DC Prenat Multivit/ [place]/Iron/Folic Ac (Multivitamin ) 1 tab DAILYBFRSUP PO Last administered on 01/21/17 17:00; Start 01/17/17 at 17:00 Divalproex Sodium (Depakote Sprinkles) 125 mg TID PO Last administered on 19:31; Start 01/17/17 at 21:00 Trazodone HCl (Desyrel) 100 mg PRN QHS PRN PO IF REPEAT NEEDED Last administered on 01/19/17 23:51; Start 01/17/17 at 18:45 Trazodone HCl (Desyrel) 100 mg HS PO Last administered on 01/21/17 19:31; Start 01/17/17 at 21:00 Sertraline HCl (Zoloft) 25 mg DAILY PO Last administered on 01/21/17 08:11; Start 01/21/17 at 09:00; Stop 01/21/17 at 18:41; Status DC Sertraline HCl (Zoloft) 50 mg DAILY PO ; Start 01/22/17 at 09:00 Active Scripts Active Reported Tylenol (Acetaminophen) 325 Mg Tablet 650 Mg PO PRN Q48HR PRN Trazodone Hcl 50 Mg Tablet 75 Mg PO PRN 2PM Trazodone Hcl 150 Mg Tablet 75 Mg PO HS Simvastatin 40 Mg Tablet 40 Mg PO HS Questran Packet (Cholestyramine (With Sugar)) 4 Gm Powd.pack 4 Gm PO DAILY Pentasa (Mesalamine) 500 Mg Capsule.er 1,000 Mg PO QID Miralax (Polyethylene Glycol 3350) 17 Gm Powd.pack 17 Gm PO DAILY Namenda (Memantine Hcl) 10 Mg Tablet 10 Mg PO BID Losartan Potassium 50 Mg Tablet 50 Mg PO DAILY Fish Oil 1,200 mg Softgel ([place]-3/Dha/Epa/Fish Oil) 1 Each Capsule. 1 Each PO TID Depakote Sprinkle (Divalproex Sodium) 125 Mg Cap.sprink 125 Mg PO DAILY I have reviewed the current psychotropics carefully including drug interactions. Risk benefit ratio favors no change other than as noted in my dictated progress note. Diagnosis: Problems: (1) Mental status change (2) Anxiety disorder (3) Dementia in Alzheimer's disease with delusions (4) Dementia in Alzheimer's disease with depression (5) Dementia, vascular, with delusions (6) Dementia, vascular, with depression (7) Impulse control disorder GLADIS MCCOY MD Jan 21, 2017 20:06
--- NOTE | 2017-01-21 23:37 | PN ---
DATE: 01/19/2017 PSYCHIATRIC PROGRESS NOTE This late entry 01/19/2017, covers elements not covered in my initial note of 01/19/2017. I met with the patient evening of 01/19/2017. The patient remains quite confused, withdrawn, oriented not even to herself. She remains somewhat anxious, restless, labile at times. REVIEW OF SYSTEMS: Ambulation impaired, in Broda chair. No CV, , pulmonary, eye, ENT system symptoms on review. Reliability poor. Not forthcoming in response to questions. MENTAL STATUS EXAM: Oriented to herself. Insight, judgment, recent and remote memory, attention, concentration, fund of knowledge poor, consistent with her diagnosis mentioned in my initial note. PLAN: Continue psychotropics mentioned in my initial note. Adjust further as clinically indicated. MAN Sarita MCCOY MD DR: VIVIAN/alma JOB#: [id number] / [id number]
[2017-01-22] MEDS: traZODone 50 MG TABLET. PO PRN (01:34)
[2017-01-22 05:56] VITALS: BP 130/66
[2017-01-22] MEDS: OMEGA-3 FATTY ACIDS/FISH OIL 1,000 MG CAPSULE. PO SCH ×3 (08:05→19:22)
[2017-01-22] MEDS: MESALAMINE ER 250 MG CAPSULE.ER PO SCH ×4 (08:05→19:23)
[2017-01-22] MEDS: DIVALPROEX 125 MG CAP.SPRINK PO SCH ×3 (08:05→19:22)
[2017-01-22] MEDS: CHOLESTYRAMINE/ASPARTAME 4 GM PACKET PO SCH (08:06)
[2017-01-22] MEDS: LOSARTAN 50 MG TABLET. PO SCH (08:06)
[2017-01-22] MEDS: POLYETHYLENE GLYCOL 3350 17 GM PACKET. PO SCH (08:06)
[2017-01-22] MEDS: SERTRALINE 50 MG TABLET. PO SCH (08:08)
--- NOTE | 2017-01-22 09:56 | PN ---
DATE: 01/20/2017 This late entry, date of service 01/20/2017, covers elements not covered in my initial note 01/20/2017. I met with the patient in the evening of 01/20/2017. The patient slept 6-1/4 hours previous evening. BP was somewhat low at 102/60. RBC is low, we will defer to Dr. Paula. Resistive to medications, confused, but she has not been trying to fall out of her chair, which is an improvement. REVIEW OF SYSTEMS: Ambulation impaired, in Broda chair. No CV, , pulmonary, eye, ENT system symptoms on review. Reliability poor. MENTAL STATUS EXAM: Oriented to herself. Insight, judgment, recent and remote memory, attention, concentration, fund of knowledge poor consistent with her diagnosis mentioned in my initial note. PLAN: Continue current psychotropics. Start Zoloft 25 mg a day for her mood symptoms. Adjust further as clinically indicated. GLADIS MCCOY MD DR: VIVIAN/alma JOB#: [id number] / [id number]
[2017-01-22 16:02] VITALS: BP 121/75
[2017-01-22] MEDS: PRENATAL MULTIVITAMIN TABLET. PO SCH (16:49)
[2017-01-22] MEDS: SIMVASTATIN 40 MG TABLET. PO SCH (19:22)
[2017-01-22] MEDS: traZODone 100 MG TABLET. PO SCH (19:22)
--- NOTE | 2017-01-22 20:03 | PDOC ---
Exam Note: Didier Note: Please also refer to the separate dictated note~for this date of service dictated separately.~Patient seen individually. Discussed the patient with Nursing staff reviewed the chart.~Reviewed interim history and current functioning. Reviewed vital signs,~Labs/ Radiology~and current medications noted below. Continue current treatment with the changes noted in the dictated addendum note Assessment: Vital Signs: Vital Signs Date Time Temp Pulse Resp B/P (MAP) Pulse Ox O2 Delivery O2 Flow Rate FiO2 01/22/17 16:02 99.5 83 16 121/75 (90) 99 01/18/17 15:59 Room Air I&O Intake and Output 01/22/17 07:00 Intake Total 540 ml Balance 540 ml Intake Oral 540 ml Current Medications: Meds: Current Medications Lorazepam (Ativan) 2 mg 1X ONCE PO ; Start 01/15/17 at 20:15; Stop 01/15/17 at 20:16; Status DC Diphenhydramine HCl (Benadryl) 50 mg STK-MED ONCE .ROUTE ; Start 01/15/17 at 19 :28; Stop 01/15/17 at 19:29; Status DC Lorazepam (Ativan) 2 mg STK-MED ONCE .ROUTE ; Start 01/15/17 at 19:28; Stop at 19:29; Status DC Diphenhydramine HCl (Benadryl) 50 mg 1X ONCE IM Last administered on 19:35; Start 01/15/17 at 19:30; Stop 01/15/17 at 20:15; Status DC Lorazepam (Ativan) 2 mg 1X ONCE IM Last administered on 01/15/17 19:35; Start 01/15/17 at 19:30; Stop 01/15/17 at 20:15; Status DC Lorazepam (Ativan) 1 mg 1X ONCE PO ; Start 01/15/17 at 21:45; Stop 01/15/17 at 21:46; Status DC Lorazepam (Ativan) 2 mg 1X ONCE IM Last administered on 01/15/17 22:20; Start 01/15/17 at 22:45; Stop 01/15/17 at 22:46; Status DC Ziprasidone (Geodon Im) 10 mg 1X ONCE IM Last administered on 01/15/17 22:45 ; Start 01/15/17 at 22:45; Stop 01/15/17 at 22:46; Status DC Acetaminophen (Tylenol) 650 mg PRN Q6HRS PRN PO MILD PAIN / TEMP; Start at 03:45 Multi-Ingredient Ointment (Analgesic [place]) 1 rafat PRN QID PRN TP MUSCLE PAIN; Start 01/16/17 at 03:45 Al Hydroxide/Mg Hydroxide (Mylanta Plus Xs) 15 ml PRN AFTMEALHC PRN PO DYSPEPSIA; Start 01/16/17 at 03:45 Magnesium Hydroxide (Milk Of Magnesia) 2,400 mg PRN QHS PRN PO CONSTIPATION; Start 01/16/17 at 03:45 Divalproex Sodium (Depakote Sprinkles) 125 mg DAILY PO Last administered on 11:03; Start 01/16/17 at 09:00; Stop 01/17/17 at 18:37; Status DC Memantine (Namenda) 10 mg BID PO Last administered on 01/16/17 12:23; Start 01/16/17 at 09:00; Stop 01/16/17 at 19:00; Status DC Trazodone HCl (Desyrel) 75 mg HS PO Last administered on 01/16/17 19:38; Start 01/16/17 at 21:00; Stop 01/17/17 at 18:37; Status DC Trazodone HCl (Desyrel) 75 mg PRN QHS PRN PO IF REPEAT NEEDED Last administered on 01/16/17 20:29; Start 01/16/17 at 04:00; Stop 01/17/17 at 18 :37; Status DC Acetaminophen (Tylenol) 650 mg PRN Q48HR PRN PO PAIN; Start 01/16/17 at 06:15 ; Status UNV Losartan Potassium (Cozaar) 50 mg DAILY PO Last administered on 01/22/17 08:06 ; Start 01/16/17 at 09:00 Polyethylene Glycol (miraLAX) 17 gm DAILY PO Last administered on 01/22/17 08: 06; Start 01/16/17 at 09:00 Simvastatin (Zocor) 40 mg HS PO Last administered on 01/22/17 19:22; Start at 21:00 Cholestyramine Resin (Questran Light) 4 gm DAILY PO Last administered on 08:06; Start 01/16/17 at 09:00 Mesalamine (Pentasa) 1,000 mg [id number] PO Last administered on 01/22/17 19:23; Start 01/16/17 at 09:00 Fish Oil (Fish Oil) 1,000 mg TID PO Last administered on 01/22/17 19:22; Start 01/16/17 at 09:00 Potassium Chloride (Klor-Con) 40 meq 1X ONCE PO Last administered on 06:30; Start 01/16/17 at 06:30; Stop 01/16/17 at 06:31; Status DC Potassium Chloride (Klor-Con) 40 meq 1X ONCE PO ; Start 01/16/17 at 12:45; Stop 01/16/17 at 12:46; Status DC Vitamin D (Vitamin D3) 50,000 unit WEEKLY PO ; Start 01/16/17 at 17:15; Stop 01/16/17 at 18:10; Status DC Cyanocobalamin (Vitamin B-12) 1,000 mcg DAILY IM ; Start 01/16/17 at 17:15; Stop 01/16/17 at 18:10; Status DC Cyanocobalamin (Vitamin B-12) 1,000 mcg [id number] IM ; Start 02/13/17 at 09:00 Vitamin D (Vitamin D3) 50,000 unit WEEKLY PO Last administered on 01/20/17 09: 43; Start 01/17/17 at 09:00 Cyanocobalamin (Vitamin B-12) 1,000 mcg DAILY IM Last administered on 09:43; Start 01/17/17 at 09:00; Stop 01/21/17 at 08:59; Status DC Olanzapine (ZyPREXA ZYDIS) 2.5 mg PRN Q2HR PRN PO PSYCHOSIS Last administered on 01/16/17 19:39; Start 01/16/17 at 18:45 Potassium Chloride (Klor-Con) 40 meq BID PO Last administered on 01/18/17 19: 24; Start 01/17/17 at 12:00; Stop 01/18/17 at 23:01; Status DC Prenat Multivit/ [place]/Iron/Folic Ac (Multivitamin ) 1 tab DAILYBFRSUP PO Last administered on 01/22/17 16:49; Start 01/17/17 at 17:00 Divalproex Sodium (Depakote Sprinkles) 125 mg TID PO Last administered on 19:22; Start 01/17/17 at 21:00 Trazodone HCl (Desyrel) 100 mg PRN QHS PRN PO IF REPEAT NEEDED Last administered on 01/22/17 01:34; Start 01/17/17 at 18:45 Trazodone HCl (Desyrel) 100 mg HS PO Last administered on 01/22/17 19:22; Start 01/17/17 at 21:00 Sertraline HCl (Zoloft) 25 mg DAILY PO Last administered on 01/21/17 08:11; Start 01/21/17 at 09:00; Stop 01/21/17 at 18:41; Status DC Sertraline HCl (Zoloft) 50 mg DAILY PO Last administered on 01/22/17 08:08; Start 01/22/17 at 09:00 Active Scripts Active Reported Tylenol (Acetaminophen) 325 Mg Tablet 650 Mg PO PRN Q48HR PRN Trazodone Hcl 50 Mg Tablet 75 Mg PO PRN 2PM Trazodone Hcl 150 Mg Tablet 75 Mg PO HS Simvastatin 40 Mg Tablet 40 Mg PO HS Questran Packet (Cholestyramine (With Sugar)) 4 Gm Powd.pack 4 Gm PO DAILY Pentasa (Mesalamine) 500 Mg Capsule.er 1,000 Mg PO QID Miralax (Polyethylene Glycol 3350) 17 Gm Powd.pack 17 Gm PO DAILY Namenda (Memantine Hcl) 10 Mg Tablet 10 Mg PO BID Losartan Potassium 50 Mg Tablet 50 Mg PO DAILY Fish Oil 1,200 mg Softgel ([place]-3/Dha/Epa/Fish Oil) 1 Each Capsule. 1 Each PO TID Depakote Sprinkle (Divalproex Sodium) 125 Mg Cap.sprink 125 Mg PO DAILY I have reviewed the current psychotropics carefully including drug interactions. Risk benefit ratio favors no change other than as noted in my dictated progress note. Diagnosis: Problems: (1) Mental status change (2) Anxiety disorder (3) Dementia in Alzheimer's disease with delusions (4) Dementia in Alzheimer's disease with depression (5) Dementia, vascular, with delusions (6) Dementia, vascular, with depression (7) Impulse control disorder GLADIS MCCOY MD Jan 22, 2017 20:03
[2017-01-23 06:27] VITALS: BP 95/53
--- NOTE | 2017-01-23 07:09 | PN ---
DATE: 01/21/2017 PSYCHIATRIC PROGRESS NOTE This is a late entry for 01/21/2017 covers elements not covered in my initial note of 01/21/2017. SUBJECTIVE: I met with the patient evening of 01/21/2017. The patient remains confused, combative at times, resistive with cares, had a bath, grabbing people around her, but overall combativeness is better. REVIEW OF SYSTEMS: Ambulation impaired. No CV, , pulmonary, eye, ENT system symptoms on review. MENTAL STATUS EXAM: Oriented to herself. Insight, judgment, recent and remote memory, attention, concentration, fund of knowledge poor, consistent with her diagnosis mentioned in my initial note. PLAN: Increase Zoloft to 50 mg a day. Rest unchanged from my initial note. She slept 5-3/4 hours previous evening. MAN Sarita MCCOY MD DR: VIVIAN/alma JOB#: [id number] / [id number]
[2017-01-23] MEDS: MESALAMINE ER 250 MG CAPSULE.ER PO SCH ×4 (09:00→19:16)
[2017-01-23] MEDS: DIVALPROEX 125 MG CAP.SPRINK PO SCH ×3 (11:15→19:15)
[2017-01-23] MEDS: SERTRALINE 50 MG TABLET. PO SCH (11:16)
[2017-01-23] MEDS: POLYETHYLENE GLYCOL 3350 17 GM PACKET. PO SCH (11:16)
[2017-01-23] MEDS: OMEGA-3 FATTY ACIDS/FISH OIL 1,000 MG CAPSULE. PO SCH ×2 (11:16→13:30)
[2017-01-23] MEDS: CHOLESTYRAMINE/ASPARTAME 4 GM PACKET PO SCH (11:18)
[2017-01-23] MEDS: LOSARTAN 50 MG TABLET. PO SCH (11:30)
[2017-01-23 15:14] VITALS: BP 117/68
[2017-01-23] MEDS: PRENATAL MULTIVITAMIN TABLET. PO SCH (16:42)
[2017-01-23] MEDS: SIMVASTATIN 40 MG TABLET. PO SCH (19:15)
[2017-01-23] MEDS: traZODone 100 MG TABLET. PO SCH (19:15)
--- NOTE | 2017-01-23 20:03 | PDOC ---
Exam Note: Didier Note: Please also refer to the separate dictated note~for this date of service dictated separately.~Patient seen individually. Discussed the patient with Nursing staff reviewed the chart.~Reviewed interim history and current functioning. Reviewed vital signs,~Labs/ Radiology~and current medications noted below. Continue current treatment with the changes noted in the dictated addendum note Assessment: Vital Signs: Vital Signs Date Time Temp Pulse Resp B/P (MAP) Pulse Ox O2 Delivery O2 Flow Rate FiO2 01/23/17 15:14 98.7 94 20 117/68 (84) 93 01/18/17 15:59 Room Air I&O Intake and Output 01/23/17 07:00 Intake Total 1080 ml Balance 1080 ml Intake Oral 1080 ml # Voids 2 Current Medications: Meds: Current Medications Lorazepam (Ativan) 2 mg 1X ONCE PO ; Start 01/15/17 at 20:15; Stop 01/15/17 at 20:16; Status DC Diphenhydramine HCl (Benadryl) 50 mg STK-MED ONCE .ROUTE ; Start 01/15/17 at 19 :28; Stop 01/15/17 at 19:29; Status DC Lorazepam (Ativan) 2 mg STK-MED ONCE .ROUTE ; Start 01/15/17 at 19:28; Stop at 19:29; Status DC Diphenhydramine HCl (Benadryl) 50 mg 1X ONCE IM Last administered on 19:35; Start 01/15/17 at 19:30; Stop 01/15/17 at 20:15; Status DC Lorazepam (Ativan) 2 mg 1X ONCE IM Last administered on 01/15/17 19:35; Start 01/15/17 at 19:30; Stop 01/15/17 at 20:15; Status DC Lorazepam (Ativan) 1 mg 1X ONCE PO ; Start 01/15/17 at 21:45; Stop 01/15/17 at 21:46; Status DC Lorazepam (Ativan) 2 mg 1X ONCE IM Last administered on 01/15/17 22:20; Start 01/15/17 at 22:45; Stop 01/15/17 at 22:46; Status DC Ziprasidone (Geodon Im) 10 mg 1X ONCE IM Last administered on 01/15/17 22:45 ; Start 01/15/17 at 22:45; Stop 01/15/17 at 22:46; Status DC Acetaminophen (Tylenol) 650 mg PRN Q6HRS PRN PO MILD PAIN / TEMP; Start at 03:45 Multi-Ingredient Ointment (Analgesic [place]) 1 rafat PRN QID PRN TP MUSCLE PAIN; Start 01/16/17 at 03:45 Al Hydroxide/Mg Hydroxide (Mylanta Plus Xs) 15 ml PRN AFTMEALHC PRN PO DYSPEPSIA; Start 01/16/17 at 03:45 Magnesium Hydroxide (Milk Of Magnesia) 2,400 mg PRN QHS PRN PO CONSTIPATION; Start 01/16/17 at 03:45 Divalproex Sodium (Depakote Sprinkles) 125 mg DAILY PO Last administered on 11:03; Start 01/16/17 at 09:00; Stop 01/17/17 at 18:37; Status DC Memantine (Namenda) 10 mg BID PO Last administered on 01/16/17 12:23; Start 01/16/17 at 09:00; Stop 01/16/17 at 19:00; Status DC Trazodone HCl (Desyrel) 75 mg HS PO Last administered on 01/16/17 19:38; Start 01/16/17 at 21:00; Stop 01/17/17 at 18:37; Status DC Trazodone HCl (Desyrel) 75 mg PRN QHS PRN PO IF REPEAT NEEDED Last administered on 01/16/17 20:29; Start 01/16/17 at 04:00; Stop 01/17/17 at 18 :37; Status DC Acetaminophen (Tylenol) 650 mg PRN Q48HR PRN PO PAIN; Start 01/16/17 at 06:15 ; Status UNV Losartan Potassium (Cozaar) 50 mg DAILY PO Last administered on 01/23/17 11:30 ; Start 01/16/17 at 09:00 Polyethylene Glycol (miraLAX) 17 gm DAILY PO Last administered on 01/23/17 11: 16; Start 01/16/17 at 09:00 Simvastatin (Zocor) 40 mg HS PO Last administered on 01/23/17 19:15; Start at 21:00 Cholestyramine Resin (Questran Light) 4 gm DAILY PO Last administered on 11:18; Start 01/16/17 at 09:00 Mesalamine (Pentasa) 1,000 mg [id number] PO Last administered on 01/23/17 19:16; Start 01/16/17 at 09:00 Fish Oil (Fish Oil) 1,000 mg TID PO Last administered on 01/23/17 13:30; Start 01/16/17 at 09:00; Stop 01/23/17 at 16:30; Status DC Potassium Chloride (Klor-Con) 40 meq 1X ONCE PO Last administered on 06:30; Start 01/16/17 at 06:30; Stop 01/16/17 at 06:31; Status DC Potassium Chloride (Klor-Con) 40 meq 1X ONCE PO ; Start 01/16/17 at 12:45; Stop 01/16/17 at 12:46; Status DC Vitamin D (Vitamin D3) 50,000 unit WEEKLY PO ; Start 01/16/17 at 17:15; Stop 01/16/17 at 18:10; Status DC Cyanocobalamin (Vitamin B-12) 1,000 mcg DAILY IM ; Start 01/16/17 at 17:15; Stop 01/16/17 at 18:10; Status DC Cyanocobalamin (Vitamin B-12) 1,000 mcg [id number] IM ; Start 02/13/17 at 09:00 Vitamin D (Vitamin D3) 50,000 unit WEEKLY PO Last administered on 01/20/17 09: 43; Start 01/17/17 at 09:00 Cyanocobalamin (Vitamin B-12) 1,000 mcg DAILY IM Last administered on 09:43; Start 01/17/17 at 09:00; Stop 01/21/17 at 08:59; Status DC Olanzapine (ZyPREXA ZYDIS) 2.5 mg PRN Q2HR PRN PO PSYCHOSIS Last administered on 01/16/17 19:39; Start 01/16/17 at 18:45 Potassium Chloride (Klor-Con) 40 meq BID PO Last administered on 01/18/17 19: 24; Start 01/17/17 at 12:00; Stop 01/18/17 at 23:01; Status DC Prenat Multivit/ [place]/Iron/Folic Ac (Multivitamin ) 1 tab [id number] PO Last administered on 01/23/17 16:42; Start 01/17/17 at 17:00 Divalproex Sodium (Depakote Sprinkles) 125 mg TID PO Last administered on 13:30; Start 01/17/17 at 21:00; Stop 01/23/17 at 18:02; Status DC Trazodone HCl (Desyrel) 100 mg PRN QHS PRN PO IF REPEAT NEEDED Last administered on 01/22/17 01:34; Start 01/17/17 at 18:45 Trazodone HCl (Desyrel) 100 mg HS PO Last administered on 01/23/17 19:15; Start 01/17/17 at 21:00 Sertraline HCl (Zoloft) 25 mg DAILY PO Last administered on 01/21/17 08:11; Start 01/21/17 at 09:00; Stop 01/21/17 at 18:41; Status DC Sertraline HCl (Zoloft) 50 mg DAILY PO Last administered on 01/23/17 11:16; Start 01/22/17 at 09:00 Divalproex Sodium (Depakote Sprinkles) 250 mg BID PO Last administered on 19:15; Start 01/23/17 at 21:00 Divalproex Sodium (Depakote Sprinkles) 125 mg DAILY@1400 PO ; Start 01/24/17 at 14:00 Active Scripts Active Reported Tylenol (Acetaminophen) 325 Mg Tablet 650 Mg PO PRN Q48HR PRN Trazodone Hcl 50 Mg Tablet 75 Mg PO PRN 2PM Trazodone Hcl 150 Mg Tablet 75 Mg PO HS Simvastatin 40 Mg Tablet 40 Mg PO HS Questran Packet (Cholestyramine (With Sugar)) 4 Gm Powd.pack 4 Gm PO DAILY Pentasa (Mesalamine) 500 Mg Capsule.er 1,000 Mg PO QID Miralax (Polyethylene Glycol 3350) 17 Gm Powd.pack 17 Gm PO DAILY Namenda (Memantine Hcl) 10 Mg Tablet 10 Mg PO BID Losartan Potassium 50 Mg Tablet 50 Mg PO DAILY Fish Oil 1,200 mg Softgel ([place]-3/Dha/Epa/Fish Oil) 1 Each Capsule. 1 Each PO TID Depakote Sprinkle (Divalproex Sodium) 125 Mg Cap.sprink 125 Mg PO DAILY I have reviewed the current psychotropics carefully including drug interactions. Risk benefit ratio favors no change other than as noted in my dictated progress note. Diagnosis: Problems: (1) Mental status change (2) Anxiety disorder (3) Dementia in Alzheimer's disease with delusions (4) Dementia in Alzheimer's disease with depression (5) Dementia, vascular, with delusions (6) Dementia, vascular, with depression (7) Impulse control disorder GLADIS MCCOY MD Jan 23, 2017 20:03
[2017-01-24 06:33] VITALS: BP 134/75
[2017-01-24] MEDS: SERTRALINE 50 MG TABLET. PO SCH (08:07)
[2017-01-24] MEDS: DIVALPROEX 125 MG CAP.SPRINK PO SCH ×3 (08:08→19:27)
[2017-01-24] MEDS: POLYETHYLENE GLYCOL 3350 17 GM PACKET. PO SCH (08:08)
[2017-01-24] MEDS: LOSARTAN 50 MG TABLET. PO SCH (08:08)
[2017-01-24] MEDS: CHOLECALCIFEROL (VITAMIN D3) 50,000 UNIT CAPSULE PO SCH (08:09)
[2017-01-24] MEDS: CHOLESTYRAMINE/ASPARTAME 4 GM PACKET PO SCH (08:09)
[2017-01-24] MEDS: MESALAMINE ER 250 MG CAPSULE.ER PO SCH ×4 (08:10→19:28)
--- NOTE | 2017-01-24 12:32 | PN ---
DATE: 01/22/2017 PSYCHIATRIC PROGRESS NOTE This is a late entry 01/22/2017, covers elements not covered in my initial note 01/22/2017. SUBJECTIVE: I met with the patient the evening of 01/22/2017. The patient ambulates with physical therapy staff, otherwise in a Broda. Anxious, restless, disorganized, agitated and yelling with cares, cooperative with assessments, compliant with meds, hidden in ice cream. REVIEW OF SYSTEMS: Ambulation impaired, in Broda chair. No CV, , pulmonary, eye, ENT system symptoms on review. Reliability poor. MENTAL STATUS EXAM: Oriented to herself. Insight, judgment, recent and remote memory, attention, concentration, fund of knowledge poor, consistent with her diagnoses mentioned in my initial note. PLAN: Valproic acid level is 30 subtherapeutic, increase Depakote Sprinkles from 125 mg t.i.d. to 250 mg morning and evening, 125 in the afternoon. Check CBC, CMP level in 3 days. Adjust further as clinically indicated. MAN Sarita MCCOY MD DR: VIVIAN/alma JOB#: [id number] / [id number]
[2017-01-24 16:32] VITALS: BP 131/81
[2017-01-24] MEDS: PRENATAL MULTIVITAMIN TABLET. PO SCH (16:46)
[2017-01-24] MEDS: traZODone 100 MG TABLET. PO SCH (19:28)
[2017-01-24] MEDS: SIMVASTATIN 40 MG TABLET. PO SCH (19:28)
--- NOTE | 2017-01-24 21:13 | PDOC ---
Exam Note: [place]ier Note: Please also refer to the separate dictated note~for this date of service dictated separately.~Patient seen individually. Discussed the patient with Nursing staff reviewed the chart.~Reviewed interim history and current functioning. Reviewed vital signs,~Labs/ Radiology~and current medications noted below. Continue current treatment with the changes noted in the dictated addendum note Assessment: Vital Signs: Vital Signs Date Time Temp Pulse Resp B/P (MAP) Pulse Ox O2 Delivery O2 Flow Rate FiO2 01/24/17 16:32 97.9 101 20 131/81 (98) 95 Room Air I&O Intake and Output 01/24/17 07:00 Intake Total 720 ml Balance 720 ml Intake Oral 720 ml # Voids 2 Current Medications: Meds: Current Medications Lorazepam (Ativan) 2 mg 1X ONCE PO ; Start 01/15/17 at 20:15; Stop 01/15/17 at 20:16; Status DC Diphenhydramine HCl (Benadryl) 50 mg STK-MED ONCE .ROUTE ; Start 01/15/17 at 19 :28; Stop 01/15/17 at 19:29; Status DC Lorazepam (Ativan) 2 mg STK-MED ONCE .ROUTE ; Start 01/15/17 at 19:28; Stop at 19:29; Status DC Diphenhydramine HCl (Benadryl) 50 mg 1X ONCE IM Last administered on 19:35; Start 01/15/17 at 19:30; Stop 01/15/17 at 20:15; Status DC Lorazepam (Ativan) 2 mg 1X ONCE IM Last administered on 01/15/17 19:35; Start 01/15/17 at 19:30; Stop 01/15/17 at 20:15; Status DC Lorazepam (Ativan) 1 mg 1X ONCE PO ; Start 01/15/17 at 21:45; Stop 01/15/17 at 21:46; Status DC Lorazepam (Ativan) 2 mg 1X ONCE IM Last administered on 01/15/17 22:20; Start 01/15/17 at 22:45; Stop 01/15/17 at 22:46; Status DC Ziprasidone (Geodon Im) 10 mg 1X ONCE IM Last administered on 01/15/17 22:45 ; Start 01/15/17 at 22:45; Stop 01/15/17 at 22:46; Status DC Acetaminophen (Tylenol) 650 mg PRN Q6HRS PRN PO MILD PAIN / TEMP; Start at 03:45 Multi-Ingredient Ointment (Analgesic [place]) 1 rafat PRN QID PRN TP MUSCLE PAIN; Start 01/16/17 at 03:45 Al Hydroxide/Mg Hydroxide (Mylanta Plus Xs) 15 ml PRN AFTMEALHC PRN PO DYSPEPSIA; Start 01/16/17 at 03:45 Magnesium Hydroxide (Milk Of Magnesia) 2,400 mg PRN QHS PRN PO CONSTIPATION; Start 01/16/17 at 03:45 Divalproex Sodium (Depakote Sprinkles) 125 mg DAILY PO Last administered on 11:03; Start 01/16/17 at 09:00; Stop 01/17/17 at 18:37; Status DC Memantine (Namenda) 10 mg BID PO Last administered on 01/16/17 12:23; Start 01/16/17 at 09:00; Stop 01/16/17 at 19:00; Status DC Trazodone HCl (Desyrel) 75 mg HS PO Last administered on 01/16/17 19:38; Start 01/16/17 at 21:00; Stop 01/17/17 at 18:37; Status DC Trazodone HCl (Desyrel) 75 mg PRN QHS PRN PO IF REPEAT NEEDED Last administered on 01/16/17 20:29; Start 01/16/17 at 04:00; Stop 01/17/17 at 18 :37; Status DC Acetaminophen (Tylenol) 650 mg PRN Q48HR PRN PO PAIN; Start 01/16/17 at 06:15 ; Status UNV Losartan Potassium (Cozaar) 50 mg DAILY PO Last administered on 01/24/17 08:08 ; Start 01/16/17 at 09:00 Polyethylene Glycol (miraLAX) 17 gm DAILY PO Last administered on 01/24/17 08: 08; Start 01/16/17 at 09:00 Simvastatin (Zocor) 40 mg HS PO Last administered on 01/24/17 19:28; Start at 21:00 Cholestyramine Resin (Questran Light) 4 gm DAILY PO Last administered on 08:09; Start 01/16/17 at 09:00 Mesalamine (Pentasa) 1,000 mg [id number] PO Last administered on 01/24/17 19:28; Start 01/16/17 at 09:00 Fish Oil (Fish Oil) 1,000 mg TID PO Last administered on 01/23/17 13:30; Start 01/16/17 at 09:00; Stop 01/23/17 at 16:30; Status DC Potassium Chloride (Klor-Con) 40 meq 1X ONCE PO Last administered on 06:30; Start 01/16/17 at 06:30; Stop 01/16/17 at 06:31; Status DC Potassium Chloride (Klor-Con) 40 meq 1X ONCE PO ; Start 01/16/17 at 12:45; Stop 01/16/17 at 12:46; Status DC Vitamin D (Vitamin D3) 50,000 unit WEEKLY PO ; Start 01/16/17 at 17:15; Stop 01/16/17 at 18:10; Status DC Cyanocobalamin (Vitamin B-12) 1,000 mcg DAILY IM ; Start 01/16/17 at 17:15; Stop 01/16/17 at 18:10; Status DC Cyanocobalamin (Vitamin B-12) 1,000 mcg [id number] IM ; Start 02/13/17 at 09:00 Vitamin D (Vitamin D3) 50,000 unit WEEKLY PO Last administered on 01/24/17 08: 09; Start 01/17/17 at 09:00 Cyanocobalamin (Vitamin B-12) 1,000 mcg DAILY IM Last administered on 09:43; Start 01/17/17 at 09:00; Stop 01/21/17 at 08:59; Status DC Olanzapine (ZyPREXA ZYDIS) 2.5 mg PRN Q2HR PRN PO PSYCHOSIS Last administered on 01/16/17 19:39; Start 01/16/17 at 18:45 Potassium Chloride (Klor-Con) 40 meq BID PO Last administered on 01/18/17 19: 24; Start 01/17/17 at 12:00; Stop 01/18/17 at 23:01; Status DC Prenat Multivit/ [place]/Iron/Folic Ac (Multivitamin ) 1 tab [id number] PO Last administered on 01/24/17 16:46; Start 01/17/17 at 17:00 Divalproex Sodium (Depakote Sprinkles) 125 mg TID PO Last administered on 13:30; Start 01/17/17 at 21:00; Stop 01/23/17 at 18:02; Status DC Trazodone HCl (Desyrel) 100 mg PRN QHS PRN PO IF REPEAT NEEDED Last administered on 01/22/17 01:34; Start 01/17/17 at 18:45 Trazodone HCl (Desyrel) 100 mg HS PO Last administered on 01/24/17 19:28; Start 01/17/17 at 21:00 Sertraline HCl (Zoloft) 25 mg DAILY PO Last administered on 01/21/17 08:11; Start 01/21/17 at 09:00; Stop 01/21/17 at 18:41; Status DC Sertraline HCl (Zoloft) 50 mg DAILY PO Last administered on 01/24/17 08:07; Start 01/22/17 at 09:00 Divalproex Sodium (Depakote Sprinkles) 250 mg BID PO Last administered on 19:27; Start 01/23/17 at 21:00 Divalproex Sodium (Depakote Sprinkles) 125 mg DAILY@1400 PO Last administered on 01/24/17 13:31; Start 01/24/17 at 14:00 Active Scripts Active Reported Tylenol (Acetaminophen) 325 Mg Tablet 650 Mg PO PRN Q48HR PRN Trazodone Hcl 50 Mg Tablet 75 Mg PO PRN 2PM Trazodone Hcl 150 Mg Tablet 75 Mg PO HS Simvastatin 40 Mg Tablet 40 Mg PO HS Questran Packet (Cholestyramine (With Sugar)) 4 Gm Powd.pack 4 Gm PO DAILY Pentasa (Mesalamine) 500 Mg Capsule.er 1,000 Mg PO QID Miralax (Polyethylene Glycol 3350) 17 Gm Powd.pack 17 Gm PO DAILY Namenda (Memantine Hcl) 10 Mg Tablet 10 Mg PO BID Losartan Potassium 50 Mg Tablet 50 Mg PO DAILY Fish Oil 1,200 mg Softgel ([place]-3/Dha/Epa/Fish Oil) 1 Each Capsule. 1 Each PO TID Depakote Sprinkle (Divalproex Sodium) 125 Mg Cap.sprink 125 Mg PO DAILY I have reviewed the current psychotropics carefully including drug interactions. Risk benefit ratio favors no change other than as noted in my dictated progress note. Diagnosis: Problems: (1) Mental status change (2) Anxiety disorder (3) Dementia in Alzheimer's disease with delusions (4) Dementia in Alzheimer's disease with depression (5) Dementia, vascular, with delusions (6) Dementia, vascular, with depression (7) Impulse control disorder GLADIS MCCOY MD Jan 24, 2017 21:13
[2017-01-25 05:54] VITALS: BP 145/77
--- NOTE | 2017-01-25 07:12 | PN ---
DATE: 01/23/2017 This is a late entry for 01/23/2017 and covers elements not covered in my initial note of 01/23/2017. I met with the patient in the evening of 01/23/2017. Overall, the patient remains confused, somewhat anxious, restless at times, but redirectable. REVIEW OF SYSTEMS: Ambulation impaired, in Broda chair. No CV, , pulmonary, eye, ENT system symptoms on review. Reliability poor. MENTAL STATUS EXAM: Oriented to herself. Insight, judgment, recent and remote memory, attention, concentration, fund of knowledge poor, consistent with her diagnosis as mentioned in my initial note. PLAN: Continue psychotropics as mentioned in my initial note. Repeat labs level on the Depakote on 01/27/2017. Adjust further as clinically indicated. MAN Sarita MCCOY MD DR: VIVIAN/alma JOB#: [id number] / [id number]
[2017-01-25 08:25] LABS: BASO % 0 % (0-3); EOS # 0.1 x10^3/uL (0.0-0.7); EOS % 2 % (0-3); HEMATOCRIT 37.6 % (36.0-47.0); HEMOGLOBIN 12.8 g/dL (12.0-15.5); LYMPH # 1.2 x10^3/uL (1.0-4.8); LYMPH % 22 % (24-48); MEAN CORPUSCULAR HEMOGLOBIN 32 pg (25-35); MEAN CORPUSCULAR HGB CONC 34 g/dL (31-37); MEAN CORPUSCULAR VOLUME 93 fL (79-100); MONO # 0.8 x10^3/uL (0.0-1.1); MONO % 16 % (0-9); NEUT # 3.2 x10^3uL (1.8-7.7); NEUT % 60 % (31-73); PLATELET COUNT 286 x10^3/uL (140-400); RED BLOOD COUNT 4.05 x10^6/uL (3.50-5.40); RED CELL DISTRIBUTION WIDTH 13.9 % (11.5-14.5); WHITE BLOOD COUNT 5.3 x10^3/uL (4.0-11.0)
[2017-01-25 08:40] LABS: ALBUMIN 3.3 g/dL (3.4-5.0); ALBUMIN/GLOBULIN RATIO 0.8 (1.0-1.7); CALCIUM 9.2 mg/dL (8.5-10.1); CREATININE 0.9 mg/dL (0.6-1.0); GFR 60.9; MAGNESIUM 2.2 mg/dL (1.8-2.4); POTASSIUM 4.2 mmol/L (3.5-5.1); TOTAL BILIRUBIN 0.6 mg/dL (0.2-1.0); TOTAL PROTEIN 7.3 g/dL (6.4-8.2)
[2017-01-25] MEDS: POLYETHYLENE GLYCOL 3350 17 GM PACKET. PO SCH (09:31)
[2017-01-25] MEDS: SERTRALINE 50 MG TABLET. PO SCH (09:32)
[2017-01-25] MEDS: DIVALPROEX 125 MG CAP.SPRINK PO SCH ×3 (09:32→19:18)
[2017-01-25] MEDS: LOSARTAN 50 MG TABLET. PO SCH (09:32)
[2017-01-25] MEDS: MESALAMINE ER 250 MG CAPSULE.ER PO SCH ×4 (09:34→19:20)
[2017-01-25] MEDS: CHOLESTYRAMINE/ASPARTAME 4 GM PACKET PO SCH (09:34)
[2017-01-25] MEDS: MAGNESIUM HYDROXIDE 2,400 MG/30 ML ORAL.SUSP. PO PRN (14:28)
[2017-01-25 16:35] VITALS: BP 121/64
[2017-01-25] MEDS: PRENATAL MULTIVITAMIN TABLET. PO SCH (17:06)
[2017-01-25] MEDS: traZODone 100 MG TABLET. PO SCH (19:18)
[2017-01-25] MEDS: SIMVASTATIN 40 MG TABLET. PO SCH (19:19)
--- NOTE | 2017-01-25 19:57 | PDOC ---
Exam Note: [place]ier Note: Please also refer to the separate dictated note~for this date of service dictated separately.~Patient seen individually. Discussed the patient with Nursing staff reviewed the chart.~Reviewed interim history and current functioning. Reviewed vital signs,~Labs/ Radiology~and current medications noted below. Continue current treatment with the changes noted in the dictated addendum note Assessment: Vital Signs: Vital Signs Date Time Temp Pulse Resp B/P (MAP) Pulse Ox O2 Delivery O2 Flow Rate FiO2 01/25/17 16:35 97.7 81 20 121/64 (83) 01/25/17 05:54 98 Room Air I&O Intake and Output 01/25/17 07:00 Intake Total 720 ml Balance 720 ml Intake Oral 720 ml # Voids 2 Labs: Laboratory Tests Test 01/25/17 08:00 White Blood Count 5.3 x10^3/uL (4.0-11.0) Red Blood Count 4.05 x10^6/uL (3.50-5.40) Hemoglobin 12.8 g/dL (12.0-15.5) Hematocrit 37.6 % (36.0-47.0) Mean Corpuscular Volume 93 fL (79-100) Mean Corpuscular Hemoglobin 32 pg (25-35) Mean Corpuscular Hemoglobin Concent 34 g/dL (31-37) Red Cell Distribution Width 13.9 % (11.5-14.5) Platelet Count 286 x10^3/uL (140-400) Neutrophils (%) (Auto) 60 % (31-73) Lymphocytes (%) (Auto) 22 % (24-48) L Monocytes (%) (Auto) 16 % (0-9) H Eosinophils (%) (Auto) 2 % (0-3) Basophils (%) (Auto) 0 % (0-3) Neutrophils # (Auto) 3.2 x10^3uL (1.8-7.7) Lymphocytes # (Auto) 1.2 x10^3/uL (1.0-4.8) Monocytes # (Auto) 0.8 x10^3/uL (0.0-1.1) Eosinophils # (Auto) 0.1 x10^3/uL (0.0-0.7) Basophils # (Auto) 0.0 x10^3/uL (0.0-0.2) Sodium Level 139 mmol/L (136-145) Potassium Level 4.2 mmol/L (3.5-5.1) Chloride Level 104 mmol/L (98-107) Carbon Dioxide Level 27 mmol/L (21-32) Anion Gap 8 (6-14) Blood Urea Nitrogen 14 mg/dL (7-20) Creatinine 0.9 mg/dL (0.6-1.0) Estimated GFR (Cockcroft-Gault) 60.9 BUN/Creatinine Ratio 16 (6-20) Glucose Level 92 mg/dL (70-99) Calcium Level 9.2 mg/dL (8.5-10.1) Magnesium Level 2.2 mg/dL (1.8-2.4) Total Bilirubin 0.6 mg/dL (0.2-1.0) Aspartate Amino Transferase (AST) 20 U/L (15-37) Alanine Aminotransferase (ALT) 25 U/L (14-59) Alkaline Phosphatase 58 U/L (46-116) Total Protein 7.3 g/dL (6.4-8.2) Albumin 3.3 g/dL (3.4-5.0) L Albumin/Globulin Ratio 0.8 (1.0-1.7) L Current Medications: Meds: Current Medications Lorazepam (Ativan) 2 mg 1X ONCE PO ; Start 01/15/17 at 20:15; Stop 01/15/17 at 20:16; Status DC Diphenhydramine HCl (Benadryl) 50 mg STK-MED ONCE .ROUTE ; Start 01/15/17 at 19 :28; Stop 01/15/17 at 19:29; Status DC Lorazepam (Ativan) 2 mg STK-MED ONCE .ROUTE ; Start 01/15/17 at 19:28; Stop at 19:29; Status DC Diphenhydramine HCl (Benadryl) 50 mg 1X ONCE IM Last administered on t 19:35; Start 01/15/17 at 19:30; Stop 01/15/17 at 20:15; Status DC Lorazepam (Ativan) 2 mg 1X ONCE IM Last administered on 01/15/17 19:35; Start 01/15/17 at 19:30; Stop 01/15/17 at 20:15; Status DC Lorazepam (Ativan) 1 mg 1X ONCE PO ; Start 01/15/17 at 21:45; Stop 01/15/17 at 21:46; Status DC Lorazepam (Ativan) 2 mg 1X ONCE IM Last administered on 01/15/17 22:20; Start 01/15/17 at 22:45; Stop 01/15/17 at 22:46; Status DC Ziprasidone (Geodon Im) 10 mg 1X ONCE IM Last administered on 01/15/17 22:45 ; Start 01/15/17 at 22:45; Stop 01/15/17 at 22:46; Status DC Acetaminophen (Tylenol) 650 mg PRN Q6HRS PRN PO MILD PAIN / TEMP; Start at 03:45 Multi-Ingredient Ointment (Analgesic [place]) 1 rafat PRN QID PRN TP MUSCLE PAIN; Start 01/16/17 at 03:45 Al Hydroxide/Mg Hydroxide (Mylanta Plus Xs) 15 ml PRN AFTMEALHC PRN PO DYSPEPSIA; Start 01/16/17 at 03:45 Magnesium Hydroxide (Milk Of Magnesia) 2,400 mg PRN QHS PRN PO CONSTIPATION; Start 01/16/17 at 03:45 Divalproex Sodium (Depakote Sprinkles) 125 mg DAILY PO Last administered on 11:03; Start 01/16/17 at 09:00; Stop 01/17/17 at 18:37; Status DC Memantine (Namenda) 10 mg BID PO Last administered on 01/16/17 12:23; Start 01/16/17 at 09:00; Stop 01/16/17 at 19:00; Status DC Trazodone HCl (Desyrel) 75 mg HS PO Last administered on 01/16/17 19:38; Start 01/16/17 at 21:00; Stop 01/17/17 at 18:37; Status DC Trazodone HCl (Desyrel) 75 mg PRN QHS PRN PO IF REPEAT NEEDED Last administered on 01/16/17 20:29; Start 01/16/17 at 04:00; Stop 01/17/17 at 18 :37; Status DC Acetaminophen (Tylenol) 650 mg PRN Q48HR PRN PO PAIN; Start 01/16/17 at 06:15 ; Status UNV Losartan Potassium (Cozaar) 50 mg DAILY PO Last administered on 01/25/17 09:32 ; Start 01/16/17 at 09:00 Polyethylene Glycol (miraLAX) 17 gm DAILY PO Last administered on 01/25/17 09: 31; Start 01/16/17 at 09:00 Simvastatin (Zocor) 40 mg HS PO Last administered on 01/25/17 19:19; Start at 21:00 Cholestyramine Resin (Questran Light) 4 gm DAILY PO Last administered on 09:34; Start 01/16/17 at 09:00 Mesalamine (Pentasa) 1,000 mg [id number] PO Last administered on 01/25/17 19:20; Start 01/16/17 at 09:00 Fish Oil (Fish Oil) 1,000 mg TID PO Last administered on 01/23/17 13:30; Start 01/16/17 at 09:00; Stop 01/23/17 at 16:30; Status DC Potassium Chloride (Klor-Con) 40 meq 1X ONCE PO Last administered on 06:30; Start 01/16/17 at 06:30; Stop 01/16/17 at 06:31; Status DC Potassium Chloride (Klor-Con) 40 meq 1X ONCE PO ; Start 01/16/17 at 12:45; Stop 01/16/17 at 12:46; Status DC Vitamin D (Vitamin D3) 50,000 unit WEEKLY PO ; Start 01/16/17 at 17:15; Stop 01/16/17 at 18:10; Status DC Cyanocobalamin (Vitamin B-12) 1,000 mcg DAILY IM ; Start 01/16/17 at 17:15; Stop 01/16/17 at 18:10; Status DC Cyanocobalamin (Vitamin B-12) 1,000 mcg [id number] IM ; Start 02/13/17 at 09:00 Vitamin D (Vitamin D3) 50,000 unit WEEKLY PO Last administered on 01/24/17 08: 09; Start 01/17/17 at 09:00 Cyanocobalamin (Vitamin B-12) 1,000 mcg DAILY IM Last administered on 09:43; Start 01/17/17 at 09:00; Stop 01/21/17 at 08:59; Status DC Olanzapine (ZyPREXA ZYDIS) 2.5 mg PRN Q2HR PRN PO PSYCHOSIS Last administered on 01/16/17 19:39; Start 01/16/17 at 18:45 Potassium Chloride (Klor-Con) 40 meq BID PO Last administered on 01/18/17 19: 24; Start 01/17/17 at 12:00; Stop 01/18/17 at 23:01; Status DC Prenat Multivit/ [place]/Iron/Folic Ac (Multivitamin ) 1 tab DAILYBFRSUP PO Last administered on 01/25/17 17:06; Start 01/17/17 at 17:00 Divalproex Sodium (Depakote Sprinkles) 125 mg TID PO Last administered on 13:30; Start 01/17/17 at 21:00; Stop 01/23/17 at 18:02; Status DC Trazodone HCl (Desyrel) 100 mg PRN QHS PRN PO IF REPEAT NEEDED Last administered on 01/22/17 01:34; Start 01/17/17 at 18:45 Trazodone HCl (Desyrel) 100 mg HS PO Last administered on 01/25/17 19:18; Start 01/17/17 at 21:00 Sertraline HCl (Zoloft) 25 mg DAILY PO Last administered on 01/21/17 08:11; Start 01/21/17 at 09:00; Stop 01/21/17 at 18:41; Status DC Sertraline HCl (Zoloft) 50 mg DAILY PO Last administered on 01/25/17 09:32; Start 01/22/17 at 09:00 Divalproex Sodium (Depakote Sprinkles) 250 mg BID PO Last administered on 19:18; Start 01/23/17 at 21:00 Divalproex Sodium (Depakote Sprinkles) 125 mg DAILY@1400 PO Last administered on 01/25/17 13:36; Start 01/24/17 at 14:00 Active Scripts Active Reported Tylenol (Acetaminophen) 325 Mg Tablet 650 Mg PO PRN Q48HR PRN Trazodone Hcl 50 Mg Tablet 75 Mg PO PRN 2PM Trazodone Hcl 150 Mg Tablet 75 Mg PO HS Simvastatin 40 Mg Tablet 40 Mg PO HS Questran Packet (Cholestyramine (With Sugar)) 4 Gm Powd.pack 4 Gm PO DAILY Pentasa (Mesalamine) 500 Mg Capsule.er 1,000 Mg PO QID Miralax (Polyethylene Glycol 3350) 17 Gm Powd.pack 17 Gm PO DAILY Namenda (Memantine Hcl) 10 Mg Tablet 10 Mg PO BID Losartan Potassium 50 Mg Tablet 50 Mg PO DAILY Fish Oil 1,200 mg Softgel ([place]-3/Dha/Epa/Fish Oil) 1 Each Capsule.dr 1 Each PO TID Depakote Sprinkle (Divalproex Sodium) 125 Mg Cap.sprink 125 Mg PO DAILY I have reviewed the current psychotropics carefully including drug interactions. Risk benefit ratio favors no change other than as noted in my dictated progress note. Diagnosis: Problems: (1) Mental status change (2) Anxiety disorder (3) Dementia in Alzheimer's disease with delusions (4) Dementia in Alzheimer's disease with depression (5) Dementia, vascular, with delusions (6) Dementia, vascular, with depression (7) Impulse control disorder GLADIS MCCOY MD Jan 25, 2017 19:57
--- NOTE | 2017-01-26 01:24 | PN ---
DATE: 01/24/2017 This entry 01/24/2017 covers elements not covered in my initial note 01/24/2017. Met with the patient in the evening of 01/24/2017. Overall, the patient remains confused, withdrawn, little labile at times, disorganized, grabbing at anyone around her. REVIEW OF SYSTEMS: Ambulation impaired, in Broda chair. No CV, , pulmonary, eye, ENT system symptoms on review. Reliability poor. MENTAL STATUS EXAM: Oriented to herself. Insight, judgment, recent and remote memory, attention, concentration, fund of knowledge poor, consistent with her diagnosis mentioned in my initial note. PLAN: Continue current psychotropics mentioned in my initial note. Adjust further as clinically indicated. Valproic acid level is 30. Repeat labs levels for the Depakote are awaited on since we increased the dosage. MAN Sarita MCCOY MD DR: VIVIAN/alma JOB#: [id number] / [id number]
[2017-01-26 05:54] VITALS: BP 106/62
[2017-01-26 08:50] VITALS: BP 124/78
[2017-01-26] MEDS: LOSARTAN 50 MG TABLET. PO SCH (08:54)
[2017-01-26] MEDS: CHOLESTYRAMINE/ASPARTAME 4 GM PACKET PO SCH (08:54)
[2017-01-26] MEDS: POLYETHYLENE GLYCOL 3350 17 GM PACKET. PO SCH (08:54)
[2017-01-26] MEDS: DIVALPROEX 125 MG CAP.SPRINK PO SCH ×3 (08:54→19:52)
[2017-01-26] MEDS: MESALAMINE ER 250 MG CAPSULE.ER PO SCH ×4 (08:54→19:52)
[2017-01-26] MEDS: SERTRALINE 50 MG TABLET. PO SCH (08:54)
[2017-01-26 10:27] LABS: BILIRUBIN,URINE NEG (NEG); CLARITY,URINE CLOUDY; COLOR,URINE AMBER; GLUCOSE,URINE NEG (NEG)
[2017-01-26 10:28] LABS: BACTERIA,URINE MOD /HPF (0-FEW); HYALINE CASTS, URINE OCC /HPF; NITRITE,URINE NEG (NEG); RBC,URINE OCC /HPF (0-2); SQUAMOUS EPITHELIAL CELL,UR OCC /LPF; UROBILINOGEN,URINE 0.2 mg/dL (0.2 mg/dL); WBC,URINE >40 /HPF (0-4)
[2017-01-26 16:07] VITALS: BP 129/77
[2017-01-26] MEDS: PRENATAL MULTIVITAMIN TABLET. PO SCH (17:00)
[2017-01-26] MEDS: traZODone 100 MG TABLET. PO SCH (19:52)
[2017-01-26] MEDS: SIMVASTATIN 40 MG TABLET. PO SCH (19:52)
--- NOTE | 2017-01-26 19:54 | PDOC ---
Exam Note: Didier Note: Please also refer to the separate dictated note~for this date of service dictated separately.~Patient seen individually. Discussed the patient with Nursing staff reviewed the chart.~Reviewed interim history and current functioning. Reviewed vital signs,~Labs/ Radiology~and current medications noted below. Continue current treatment with the changes noted in the dictated addendum note Assessment: Vital Signs: Vital Signs Date Time Temp Pulse Resp B/P (MAP) Pulse Ox O2 Delivery O2 Flow Rate FiO2 01/26/17 16:07 97.8 94 20 129/77 (94) 95 01/25/17 05:54 Room Air I&O Intake and Output 01/26/17 07:00 Intake Total 410 ml Balance 410 ml Intake Oral 410 ml # Voids 1 # Bowel Movements 1 Labs: Laboratory Tests Test 01/26/17 10:05 Urine Collection Type Unknown Urine Color [place] Urine Clarity Cloudy Urine pH 5.5 Urine Specific [place] >=1.030 Urine Protein 30 mg/dl (NEG-TRACE) Urine Glucose (UA) Neg mg/dL (NEG) Urine Ketones (Stick) Trace mg/dL (NEG) Urine Blood Neg (NEG) Urine Nitrite Neg (NEG) Urine Bilirubin Neg (NEG) Urine Urobilinogen Dipstick 0.2 mg/dL (0.2 mg/dL) Urine Leukocyte Esterase Small (NEG) Urine RBC Occ /HPF (0-2) Urine WBC >40 /HPF (0-4) Urine Squamous Epithelial Cells Occ /LPF Urine Bacteria Mod /HPF (0-FEW) Urine Hyaline Casts Occ /HPF Urine Mucus Slight /LPF Current Medications: Meds: Current Medications Lorazepam (Ativan) 2 mg 1X ONCE PO ; Start 01/15/17 at 20:15; Stop 01/15/17 at 20:16; Status DC Diphenhydramine HCl (Benadryl) 50 mg STK-MED ONCE .ROUTE ; Start 01/15/17 at 19 :28; Stop 01/15/17 at 19:29; Status DC Lorazepam (Ativan) 2 mg STK-MED ONCE .ROUTE ; Start 01/15/17 at 19:28; Stop at 19:29; Status DC Diphenhydramine HCl (Benadryl) 50 mg 1X ONCE IM Last administered on t 19:35; Start 01/15/17 at 19:30; Stop 01/15/17 at 20:15; Status DC Lorazepam (Ativan) 2 mg 1X ONCE IM Last administered on 01/15/17 19:35; Start 01/15/17 at 19:30; Stop 01/15/17 at 20:15; Status DC Lorazepam (Ativan) 1 mg 1X ONCE PO ; Start 01/15/17 at 21:45; Stop 01/15/17 at 21:46; Status DC Lorazepam (Ativan) 2 mg 1X ONCE IM Last administered on 01/15/17 22:20; Start 01/15/17 at 22:45; Stop 01/15/17 at 22:46; Status DC Ziprasidone (Geodon Im) 10 mg 1X ONCE IM Last administered on 01/15/17 22:45 ; Start 01/15/17 at 22:45; Stop 01/15/17 at 22:46; Status DC Acetaminophen (Tylenol) 650 mg PRN Q6HRS PRN PO MILD PAIN / TEMP; Start at 03:45 Multi-Ingredient Ointment (Analgesic [place]) 1 rafat PRN QID PRN TP MUSCLE PAIN; Start 01/16/17 at 03:45 Al Hydroxide/Mg Hydroxide (Mylanta Plus Xs) 15 ml PRN AFTMEALHC PRN PO DYSPEPSIA; Start 01/16/17 at 03:45 Magnesium Hydroxide (Milk Of Magnesia) 2,400 mg PRN QHS PRN PO CONSTIPATION; Start 01/16/17 at 03:45 Divalproex Sodium (Depakote Sprinkles) 125 mg DAILY PO Last administered on 11:03; Start 01/16/17 at 09:00; Stop 01/17/17 at 18:37; Status DC Memantine (Namenda) 10 mg BID PO Last administered on 01/16/17 12:23; Start 01/16/17 at 09:00; Stop 01/16/17 at 19:00; Status DC Trazodone HCl (Desyrel) 75 mg HS PO Last administered on 01/16/17 19:38; Start 01/16/17 at 21:00; Stop 01/17/17 at 18:37; Status DC Trazodone HCl (Desyrel) 75 mg PRN QHS PRN PO IF REPEAT NEEDED Last administered on 01/16/17 20:29; Start 01/16/17 at 04:00; Stop 01/17/17 at 18 :37; Status DC Acetaminophen (Tylenol) 650 mg PRN Q48HR PRN PO PAIN; Start 01/16/17 at 06:15 ; Status UNV Losartan Potassium (Cozaar) 50 mg DAILY PO Last administered on 01/26/17 08:54 ; Start 01/16/17 at 09:00 Polyethylene Glycol (miraLAX) 17 gm DAILY PO Last administered on 01/26/17 08: 54; Start 01/16/17 at 09:00 Simvastatin (Zocor) 40 mg HS PO Last administered on 01/25/17 19:19; Start at 21:00 Cholestyramine Resin (Questran Light) 4 gm DAILY PO Last administered on 08:54; Start 01/16/17 at 09:00 Mesalamine (Pentasa) 1,000 mg [id number] PO Last administered on 01/26/17 17:00; Start 01/16/17 at 09:00 Fish Oil (Fish Oil) 1,000 mg TID PO Last administered on 01/23/17 13:30; Start 01/16/17 at 09:00; Stop 01/23/17 at 16:30; Status DC Potassium Chloride (Klor-Con) 40 meq 1X ONCE PO Last administered on 06:30; Start 01/16/17 at 06:30; Stop 01/16/17 at 06:31; Status DC Potassium Chloride (Klor-Con) 40 meq 1X ONCE PO ; Start 01/16/17 at 12:45; Stop 01/16/17 at 12:46; Status DC Vitamin D (Vitamin D3) 50,000 unit WEEKLY PO ; Start 01/16/17 at 17:15; Stop 01/16/17 at 18:10; Status DC Cyanocobalamin (Vitamin B-12) 1,000 mcg DAILY IM ; Start 01/16/17 at 17:15; Stop 01/16/17 at 18:10; Status DC Cyanocobalamin (Vitamin B-12) 1,000 mcg [id number] IM ; Start 02/13/17 at 09:00 Vitamin D (Vitamin D3) 50,000 unit WEEKLY PO Last administered on 01/24/17 08: 09; Start 01/17/17 at 09:00 Cyanocobalamin (Vitamin B-12) 1,000 mcg DAILY IM Last administered on 09:43; Start 01/17/17 at 09:00; Stop 01/21/17 at 08:59; Status DC Olanzapine (ZyPREXA ZYDIS) 2.5 mg PRN Q2HR PRN PO PSYCHOSIS Last administered on 01/16/17 19:39; Start 01/16/17 at 18:45 Potassium Chloride (Klor-Con) 40 meq BID PO Last administered on 01/18/17 19: 24; Start 01/17/17 at 12:00; Stop 01/18/17 at 23:01; Status DC Prenat Multivit/ Chief Concierge/Iron/Folic Ac (Multivitamin ) 1 tab DAILYBFRSUP PO Last administered on 01/26/17 17:00; Start 01/17/17 at 17:00 Divalproex Sodium (Depakote Sprinkles) 125 mg TID PO Last administered on 13:30; Start 01/17/17 at 21:00; Stop 01/23/17 at 18:02; Status DC Trazodone HCl (Desyrel) 100 mg PRN QHS PRN PO IF REPEAT NEEDED Last administered on 01/22/17 01:34; Start 01/17/17 at 18:45 Trazodone HCl (Desyrel) 100 mg HS PO Last administered on 01/25/17 19:18; Start 01/17/17 at 21:00 Sertraline HCl (Zoloft) 25 mg DAILY PO Last administered on 01/21/17 08:11; Start 01/21/17 at 09:00; Stop 01/21/17 at 18:41; Status DC Sertraline HCl (Zoloft) 50 mg DAILY PO Last administered on 01/26/17 08:54; Start 01/22/17 at 09:00 Divalproex Sodium (Depakote Sprinkles) 250 mg BID PO Last administered on 08:54; Start 01/23/17 at 21:00 Divalproex Sodium (Depakote Sprinkles) 125 mg DAILY@1400 PO Last administered on 01/26/17t 13:49; Start 01/24/17 at 14:00 Active Scripts Active Reported Tylenol (Acetaminophen) 325 Mg Tablet 650 Mg PO PRN Q48HR PRN Trazodone Hcl 50 Mg Tablet 75 Mg PO PRN 2PM Trazodone Hcl 150 Mg Tablet 75 Mg PO HS Simvastatin 40 Mg Tablet 40 Mg PO HS Questran Packet (Cholestyramine (With Sugar)) 4 Gm Powd.pack 4 Gm PO DAILY Pentasa (Mesalamine) 500 Mg Capsule.er 1,000 Mg PO QID Miralax (Polyethylene Glycol 3350) 17 Gm Powd.pack 17 Gm PO DAILY Namenda (Memantine Hcl) 10 Mg Tablet 10 Mg PO BID Losartan Potassium 50 Mg Tablet 50 Mg PO DAILY Fish Oil 1,200 mg Softgel ([place]-3/Dha/Epa/Fish Oil) 1 Each Capsule.dr 1 Each PO TID Depakote Sprinkle (Divalproex Sodium) 125 Mg Cap.sprink 125 Mg PO DAILY I have reviewed the current psychotropics carefully including drug interactions. Risk benefit ratio favors no change other than as noted in my dictated progress note. Diagnosis: Problems: (1) Mental status change (2) Anxiety disorder (3) Dementia in Alzheimer's disease with delusions (4) Dementia in Alzheimer's disease with depression (5) Dementia, vascular, with delusions (6) Dementia, vascular, with depression (7) Impulse control disorder GLADIS MCCOY MD Jan 26, 2017 19:54
--- NOTE | 2017-01-27 04:31 | PN ---
DATE: 01/25/2017 PSYCHIATRIC PROGRESS NOTE This late entry 01/25/2017, covers elements not covered in my initial note 01/25/2017. I met with the patient evening of 01/25/2017. The patient was staffed at a treatment team meeting with the entire team morning of 01/25/2017, and the patient's daughter, Alannah, attended the conference. The facility was to attend, but were unavailable. The patient is sleeping about 6 hours, appetite 60-75%, takes her meds in ice cream, grabbing out at staff, yelling with cares, though yelling is better than before. Not reaching out as much, resistive to labs though. REVIEW OF SYSTEMS: Ambulation impaired, in Broda chair. No CV, , pulmonary, eye, ENT system symptoms on review. MENTAL STATUS EXAM: Oriented to herself. Insight, judgment, recent and remote memory, attention, concentration, fund of knowledge poor, consistent with her diagnosis mentioned in my initial note. PLAN: Continue current psychotropics mentioned in my initial note. Check labs level on the Depakote 01/27/2017, adjust further as clinically indicated. MAN Sarita MCCOY MD DR: VIVIAN/alma JOB#: [id number] / [id number]
[2017-01-27 05:57] VITALS: BP 101/64
[2017-01-27 06:43] LABS: BASO % 0 % (0-3); EOS % 1 % (0-3); HEMATOCRIT 34.4 % (36.0-47.0); HEMOGLOBIN 11.6 g/dL (12.0-15.5); LYMPH # 1.5 x10^3/uL (1.0-4.8); LYMPH % 32 % (24-48); MEAN CORPUSCULAR HEMOGLOBIN 32 pg (25-35); MEAN CORPUSCULAR HGB CONC 34 g/dL (31-37); MEAN CORPUSCULAR VOLUME 94 fL (79-100); MONO # 0.7 x10^3/uL (0.0-1.1); MONO % 14 % (0-9); NEUT # 2.6 x10^3uL (1.8-7.7); NEUT % 54 % (31-73); PLATELET COUNT 287 x10^3/uL (140-400); RED BLOOD COUNT 3.67 x10^6/uL (3.50-5.40); RED CELL DISTRIBUTION WIDTH 13.9 % (11.5-14.5); WHITE BLOOD COUNT 4.8 x10^3/uL (4.0-11.0)
[2017-01-27 06:59] LABS: ALBUMIN/GLOBULIN RATIO 0.8 (1.0-1.7); ALK PHOS 50 U/L (46-116); ALT (SGPT) 24 U/L (14-59); ANION GAP 8 (6-14); AST (SGOT) 23 U/L (15-37); BLOOD UREA NITROGEN 23 mg/dL (7-20); BUN/CREATININE RATIO 26 (6-20); CALCIUM 9.1 mg/dL (8.5-10.1); CARBON DIOXIDE 28 mmol/L (21-32); CHLORIDE 107 mmol/L (98-107); CREATININE 0.9 mg/dL (0.6-1.0); GFR 60.9; GLUCOSE 94 mg/dL (70-99); SODIUM 143 mmol/L (136-145); TOTAL BILIRUBIN 0.4 mg/dL (0.2-1.0); TOTAL PROTEIN 6.7 g/dL (6.4-8.2)
[2017-01-27 07:06] LABS: VAL ACID 52 mcg/mL (50-100)
[2017-01-27] MEDS: SERTRALINE 50 MG TABLET. PO SCH (07:54)
[2017-01-27] MEDS: POLYETHYLENE GLYCOL 3350 17 GM PACKET. PO SCH (07:54)
[2017-01-27] MEDS: DIVALPROEX 125 MG CAP.SPRINK PO SCH ×3 (07:54→19:52)
[2017-01-27] MEDS: LOSARTAN 50 MG TABLET. PO SCH (07:55)
[2017-01-27] MEDS: MESALAMINE ER 250 MG CAPSULE.ER PO SCH ×4 (07:55→19:52)
[2017-01-27] MEDS: CHOLESTYRAMINE/ASPARTAME 4 GM PACKET PO SCH (07:55)
[2017-01-27] MEDS: PRENATAL MULTIVITAMIN TABLET. PO SCH (13:25)
[2017-01-27 16:25] VITALS: BP 158/80
[2017-01-27] MEDS: traZODone 100 MG TABLET. PO SCH (19:52)
[2017-01-27] MEDS: SIMVASTATIN 40 MG TABLET. PO SCH (19:52)
--- NOTE | 2017-01-27 21:35 | PDOC ---
Exam Note: Didier Note: Please also refer to the separate dictated note~for this date of service dictated separately.~Patient seen individually. Discussed the patient with Nursing staff reviewed the chart.~Reviewed interim history and current functioning. Reviewed vital signs,~Labs/ Radiology~and current medications noted below. Continue current treatment with the changes noted in the dictated addendum note Assessment: Vital Signs: Vital Signs Date Time Temp Pulse Resp B/P (MAP) Pulse Ox O2 Delivery O2 Flow Rate FiO2 01/27/17 16:25 97.9 77 20 158/80 (106) 93 Room Air I&O Intake and Output 01/27/17 07:00 Intake Total 720 ml Balance 720 ml Intake Oral 720 ml # Voids 1 Labs: Laboratory Tests Test 01/27/17 05:56 White Blood Count 4.8 x10^3/uL (4.0-11.0) Red Blood Count 3.67 x10^6/uL (3.50-5.40) Hemoglobin 11.6 g/dL (12.0-15.5) L Hematocrit 34.4 % (36.0-47.0) L Mean Corpuscular Volume 94 fL (79-100) Mean Corpuscular Hemoglobin 32 pg (25-35) Mean Corpuscular Hemoglobin Concent 34 g/dL (31-37) Red Cell Distribution Width 13.9 % (11.5-14.5) Platelet Count 287 x10^3/uL (140-400) Neutrophils (%) (Auto) 54 % (31-73) Lymphocytes (%) (Auto) 32 % (24-48) Monocytes (%) (Auto) 14 % (0-9) H Eosinophils (%) (Auto) 1 % (0-3) Basophils (%) (Auto) 0 % (0-3) Neutrophils # (Auto) 2.6 x10^3uL (1.8-7.7) Lymphocytes # (Auto) 1.5 x10^3/uL (1.0-4.8) Monocytes # (Auto) 0.7 x10^3/uL (0.0-1.1) Eosinophils # (Auto) 0.0 x10^3/uL (0.0-0.7) Basophils # (Auto) 0.0 x10^3/uL (0.0-0.2) Sodium Level 143 mmol/L (136-145) Potassium Level 4.0 mmol/L (3.5-5.1) Chloride Level 107 mmol/L (98-107) Carbon Dioxide Level 28 mmol/L (21-32) Anion Gap 8 (6-14) Blood Urea Nitrogen 23 mg/dL (7-20) H Creatinine 0.9 mg/dL (0.6-1.0) Estimated GFR (Cockcroft-Gault) 60.9 BUN/Creatinine Ratio 26 (6-20) H Glucose Level 94 mg/dL (70-99) Calcium Level 9.1 mg/dL (8.5-10.1) Total Bilirubin 0.4 mg/dL (0.2-1.0) Aspartate Amino Transferase (AST) 23 U/L (15-37) Alanine Aminotransferase (ALT) 24 U/L (14-59) Alkaline Phosphatase 50 U/L (46-116) Total Protein 6.7 g/dL (6.4-8.2) Albumin 3.0 g/dL (3.4-5.0) L Albumin/Globulin Ratio 0.8 (1.0-1.7) L Valproic Acid Level 52 mcg/mL (50-100) Valproic Acid Last Dose Date 01/26/17 Valproic Acid Last Dose Time 2100 Current Medications: Meds: Current Medications Lorazepam (Ativan) 2 mg 1X ONCE PO ; Start 01/15/17 at 20:15; Stop 01/15/17 at 20:16; Status DC Diphenhydramine HCl (Benadryl) 50 mg STK-MED ONCE .ROUTE ; Start 01/15/17 at 19 :28; Stop 01/15/17 at 19:29; Status DC Lorazepam (Ativan) 2 mg STK-MED ONCE .ROUTE ; Start 01/15/17 at 19:28; Stop at 19:29; Status DC Diphenhydramine HCl (Benadryl) 50 mg 1X ONCE IM Last administered on 19:35; Start 01/15/17 at 19:30; Stop 01/15/17 at 20:15; Status DC Lorazepam (Ativan) 2 mg 1X ONCE IM Last administered on 01/15/17 19:35; Start 01/15/17 at 19:30; Stop 01/15/17 at 20:15; Status DC Lorazepam (Ativan) 1 mg 1X ONCE PO ; Start 01/15/17 at 21:45; Stop 01/15/17 at 21:46; Status DC Lorazepam (Ativan) 2 mg 1X ONCE IM Last administered on 01/15/17 22:20; Start 01/15/17 at 22:45; Stop 01/15/17 at 22:46; Status DC Ziprasidone (Geodon Im) 10 mg 1X ONCE IM Last administered on 01/15/17 22:45 ; Start 01/15/17 at 22:45; Stop 01/15/17 at 22:46; Status DC Acetaminophen (Tylenol) 650 mg PRN Q6HRS PRN PO MILD PAIN / TEMP; Start at 03:45 Multi-Ingredient Ointment (Analgesic [place]) 1 rafat PRN QID PRN TP MUSCLE PAIN; Start 01/16/17 at 03:45 Al Hydroxide/Mg Hydroxide (Mylanta Plus Xs) 15 ml PRN AFTMEALHC PRN PO DYSPEPSIA; Start 01/16/17 at 03:45 Magnesium Hydroxide (Milk Of Magnesia) 2,400 mg PRN QHS PRN PO CONSTIPATION; Start 01/16/17 at 03:45 Divalproex Sodium (Depakote Sprinkles) 125 mg DAILY PO Last administered on 11:03; Start 01/16/17 at 09:00; Stop 01/17/17 at 18:37; Status DC Memantine (Namenda) 10 mg BID PO Last administered on 01/16/17 12:23; Start 01/16/17 at 09:00; Stop 01/16/17 at 19:00; Status DC Trazodone HCl (Desyrel) 75 mg HS PO Last administered on 01/16/17 19:38; Start 01/16/17 at 21:00; Stop 01/17/17 at 18:37; Status DC Trazodone HCl (Desyrel) 75 mg PRN QHS PRN PO IF REPEAT NEEDED Last administered on 01/16/17 20:29; Start 01/16/17 at 04:00; Stop 01/17/17 at 18 :37; Status DC Acetaminophen (Tylenol) 650 mg PRN Q48HR PRN PO PAIN; Start 01/16/17 at 06:15 ; Status UNV Losartan Potassium (Cozaar) 50 mg DAILY PO Last administered on 01/26/17 08:54 ; Start 01/16/17 at 09:00 Polyethylene Glycol (miraLAX) 17 gm DAILY PO Last administered on 01/27/17 07: 54; Start 01/16/17 at 09:00 Simvastatin (Zocor) 40 mg HS PO Last administered on 01/27/17 19:52; Start at 21:00 Cholestyramine Resin (Questran Light) 4 gm DAILY PO Last administered on 07:55; Start 01/16/17 at 09:00 Mesalamine (Pentasa) 1,000 mg [id number] PO Last administered on 01/27/17 19:52; Start 01/16/17 at 09:00 Fish Oil (Fish Oil) 1,000 mg TID PO Last administered on 01/23/17 13:30; Start 01/16/17 at 09:00; Stop 01/23/17 at 16:30; Status DC Potassium Chloride (Klor-Con) 40 meq 1X ONCE PO Last administered on 06:30; Start 01/16/17 at 06:30; Stop 01/16/17 at 06:31; Status DC Potassium Chloride (Klor-Con) 40 meq 1X ONCE PO ; Start 01/16/17 at 12:45; Stop 01/16/17 at 12:46; Status DC Vitamin D (Vitamin D3) 50,000 unit WEEKLY PO ; Start 01/16/17 at 17:15; Stop 01/16/17 at 18:10; Status DC Cyanocobalamin (Vitamin B-12) 1,000 mcg DAILY IM ; Start 01/16/17 at 17:15; Stop 01/16/17 at 18:10; Status DC Cyanocobalamin (Vitamin B-12) 1,000 mcg [id number] IM ; Start 02/13/17 at 09:00 Vitamin D (Vitamin D3) 50,000 unit WEEKLY PO Last administered on 01/24/17 08: 09; Start 01/17/17 at 09:00 Cyanocobalamin (Vitamin B-12) 1,000 mcg DAILY IM Last administered on 09:43; Start 01/17/17 at 09:00; Stop 01/21/17 at 08:59; Status DC Olanzapine (ZyPREXA ZYDIS) 2.5 mg PRN Q2HR PRN PO PSYCHOSIS Last administered on 01/16/17 19:39; Start 01/16/17 at 18:45 Potassium Chloride (Klor-Con) 40 meq BID PO Last administered on 01/18/17 19: 24; Start 01/17/17 at 12:00; Stop 01/18/17 at 23:01; Status DC Prenat Multivit/ [place]/Iron/Folic Ac (Multivitamin ) 1 tab DAILYBFRSUP PO Last administered on 01/27/17 13:25; Start 01/17/17 at 17:00 Divalproex Sodium (Depakote Sprinkles) 125 mg TID PO Last administered on 13:30; Start 01/17/17 at 21:00; Stop 01/23/17 at 18:02; Status DC Trazodone HCl (Desyrel) 100 mg PRN QHS PRN PO IF REPEAT NEEDED Last administered on 01/22/17 01:34; Start 01/17/17 at 18:45 Trazodone HCl (Desyrel) 100 mg HS PO Last administered on 01/27/17 19:52; Start 01/17/17 at 21:00 Sertraline HCl (Zoloft) 25 mg DAILY PO Last administered on 01/21/17 08:11; Start 01/21/17 at 09:00; Stop 01/21/17 at 18:41; Status DC Sertraline HCl (Zoloft) 50 mg DAILY PO Last administered on 01/27/17 07:54; Start 01/22/17 at 09:00; Stop 01/27/17 at 18:53; Status DC Divalproex Sodium (Depakote Sprinkles) 250 mg BID PO Last administered on 19:52; Start 01/23/17 at 21:00 Divalproex Sodium (Depakote Sprinkles) 125 mg DAILY@1400 PO Last administered on 01/27/17 13:25; Start 01/24/17 at 14:00 Sertraline HCl (Zoloft) 75 mg DAILY PO ; Start 01/28/17 at 09:00 Active Scripts Active Reported Tylenol (Acetaminophen) 325 Mg Tablet 650 Mg PO PRN Q48HR PRN Trazodone Hcl 50 Mg Tablet 75 Mg PO PRN 2PM Trazodone Hcl 150 Mg Tablet 75 Mg PO HS Simvastatin 40 Mg Tablet 40 Mg PO HS Questran Packet (Cholestyramine (With Sugar)) 4 Gm Powd.pack 4 Gm PO DAILY Pentasa (Mesalamine) 500 Mg Capsule.er 1,000 Mg PO QID Miralax (Polyethylene Glycol 3350) 17 Gm Powd.pack 17 Gm PO DAILY Namenda (Memantine Hcl) 10 Mg Tablet 10 Mg PO BID Losartan Potassium 50 Mg Tablet 50 Mg PO DAILY Fish Oil 1,200 mg Softgel ([place]-3/Dha/Epa/Fish Oil) 1 Each Capsule.dr 1 Each PO TID Depakote Sprinkle (Divalproex Sodium) 125 Mg Cap.sprink 125 Mg PO DAILY I have reviewed the current psychotropics carefully including drug interactions. Risk benefit ratio favors no change other than as noted in my dictated progress note. Diagnosis: Problems: (1) Mental status change (2) Anxiety disorder (3) Dementia in Alzheimer's disease with delusions (4) Dementia in Alzheimer's disease with depression (5) Dementia, vascular, with delusions (6) Dementia, vascular, with depression (7) Impulse control disorder GLADIS MCCOY MD Jan 27, 2017 21:34
[2017-01-28 06:09] VITALS: BP 135/86
[2017-01-28] MEDS: LOSARTAN 50 MG TABLET. PO SCH (08:13)
[2017-01-28] MEDS: CHOLESTYRAMINE/ASPARTAME 4 GM PACKET PO SCH (08:13)
[2017-01-28] MEDS: DIVALPROEX 125 MG CAP.SPRINK PO SCH ×3 (08:13→20:09)
[2017-01-28] MEDS: MESALAMINE ER 250 MG CAPSULE.ER PO SCH ×4 (08:14→20:10)
[2017-01-28] MEDS: POLYETHYLENE GLYCOL 3350 17 GM PACKET. PO SCH (08:14)
[2017-01-28] MEDS ORDERED: SERTRALINE 25 MG TABLET. PO SCH (09:00)
[2017-01-28 16:18] VITALS: BP 145/91
[2017-01-28] MEDS: PRENATAL MULTIVITAMIN TABLET. PO SCH (17:00)
--- NOTE | 2017-01-28 17:34 | PN ---
DATE: 01/26/2017 PSYCHIATRIC PROGRESS NOTE This is a late entry 01/26/2017, covers elements not covered in my initial note 01/26/2017. Met the patient evening of 01/26/2017. The patient's UA has reflux to culture. She may have a UTI causing her ongoing mood lability, irritability, questionable psychotic symptoms. BUN and creatinine are unchanged and unremarkable. She is quite disorganized, agitated with care. REVIEW OF SYSTEMS: Ambulation impaired, in Broda chair. No CV, , pulmonary, eye, ENT system symptoms on review. Reliability poor. MENTAL STATUS EXAM: Oriented to herself. Insight, judgment, recent and remote memory, attention, concentration, fund of knowledge poor, consistent with her diagnosis. LABORATORY DATA: Reviewed. IMPRESSION: Unchanged from initial note. PLAN: Continue current psychotropics including Depakote with labs and valproic acid level due on 01/27/2017. We will adjust Depakote thereafter. Treat if UTIs evident. GLADIS MCCOY MD DR: VIVIAN/alma JOB#: [id number] / [id number]
--- NOTE | 2017-01-28 17:41 | PN ---
DATE: 01/27/2017 This is a late entry 01/27, covers elements not covered in my initial note of 01/27. SUBJECTIVE: I met with the patient in the evening of 01/27. The patient slept 8 hours previous evening. Urine culture is awaited. Takes her medications crushed, combative with cares. Valproic acid level is 52, therapeutic. REVIEW OF SYSTEMS: Ambulation impaired, in a Broda chair. No CV, , pulmonary, eye, ENT system symptoms on review. Reliability poor. MENTAL STATUS EXAM: Oriented to her herself. Insight, judgment, recent and remote memory, attention, concentration, fund of knowledge poor, consistent with her diagnosis mentioned in my initial note. PLAN: Increase Zoloft to 75 mg a day. Rest unchanged from initial note. Treat UTI if culture positive. MAN Sarita MCCOY MD DR: VIVIAN/amla JOB#: [id number] / [id number]
--- NOTE | 2017-01-28 20:04 | PDOC ---
Exam Note: Didier Note: Please also refer to the separate dictated note~for this date of service dictated separately.~Patient seen individually. Discussed the patient with Nursing staff reviewed the chart.~Reviewed interim history and current functioning. Reviewed vital signs,~Labs/ Radiology~and current medications noted below. Continue current treatment with the changes noted in the dictated addendum note Assessment: Vital Signs: Vital Signs Date Time Temp Pulse Resp B/P (MAP) Pulse Ox O2 Delivery O2 Flow Rate FiO2 01/28/17 16:18 98.6 95 20 145/91 (109) 98 01/27/17 16:25 Room Air I&O Intake and Output 01/28/17 07:00 Intake Total 1080 ml Balance 1080 ml Intake Oral 1080 ml # Voids 1 Current Medications: Meds: Current Medications Lorazepam (Ativan) 2 mg 1X ONCE PO ; Start 01/15/17 at 20:15; Stop 01/15/17 at 20:16; Status DC Diphenhydramine HCl (Benadryl) 50 mg STK-MED ONCE .ROUTE ; Start 01/15/17 at 19 :28; Stop 01/15/17 at 19:29; Status DC Lorazepam (Ativan) 2 mg STK-MED ONCE .ROUTE ; Start 01/15/17 at 19:28; Stop at 19:29; Status DC Diphenhydramine HCl (Benadryl) 50 mg 1X ONCE IM Last administered on 19:35; Start 01/15/17 at 19:30; Stop 01/15/17 at 20:15; Status DC Lorazepam (Ativan) 2 mg 1X ONCE IM Last administered on 01/15/17 19:35; Start 01/15/17 at 19:30; Stop 01/15/17 at 20:15; Status DC Lorazepam (Ativan) 1 mg 1X ONCE PO ; Start 01/15/17 at 21:45; Stop 01/15/17 at 21:46; Status DC Lorazepam (Ativan) 2 mg 1X ONCE IM Last administered on 01/15/17 22:20; Start 01/15/17 at 22:45; Stop 01/15/17 at 22:46; Status DC Ziprasidone (Geodon Im) 10 mg 1X ONCE IM Last administered on 01/15/17 22:45 ; Start 01/15/17 at 22:45; Stop 01/15/17 at 22:46; Status DC Acetaminophen (Tylenol) 650 mg PRN Q6HRS PRN PO MILD PAIN / TEMP; Start at 03:45 Multi-Ingredient Ointment (Analgesic [place]) 1 rafat PRN QID PRN TP MUSCLE PAIN; Start 01/16/17 at 03:45 Al Hydroxide/Mg Hydroxide (Mylanta Plus Xs) 15 ml PRN AFTMEALHC PRN PO DYSPEPSIA; Start 01/16/17 at 03:45 Magnesium Hydroxide (Milk Of Magnesia) 2,400 mg PRN QHS PRN PO CONSTIPATION; Start 01/16/17 at 03:45 Divalproex Sodium (Depakote Sprinkles) 125 mg DAILY PO Last administered on 11:03; Start 01/16/17 at 09:00; Stop 01/17/17 at 18:37; Status DC Memantine (Namenda) 10 mg BID PO Last administered on 01/16/17 12:23; Start 01/16/17 at 09:00; Stop 01/16/17 at 19:00; Status DC Trazodone HCl (Desyrel) 75 mg HS PO Last administered on 01/16/17 19:38; Start 01/16/17 at 21:00; Stop 01/17/17 at 18:37; Status DC Trazodone HCl (Desyrel) 75 mg PRN QHS PRN PO IF REPEAT NEEDED Last administered on 01/16/17 20:29; Start 01/16/17 at 04:00; Stop 01/17/17 at 18 :37; Status DC Acetaminophen (Tylenol) 650 mg PRN Q48HR PRN PO PAIN; Start 01/16/17 at 06:15 ; Status UNV Losartan Potassium (Cozaar) 50 mg DAILY PO Last administered on 01/28/17 08: 13; Start 01/16/17 at 09:00 Polyethylene Glycol (miraLAX) 17 gm DAILY PO Last administered on 01/28/17 08 :14; Start 01/16/17 at 09:00 Simvastatin (Zocor) 40 mg HS PO Last administered on 01/27/17 19:52; Start at 21:00 Cholestyramine Resin (Questran Light) 4 gm DAILY PO Last administered on 08:13; Start 01/16/17 at 09:00 Mesalamine (Pentasa) 1,000 mg [id number] PO Last administered on 01/28/17 17:00 ; Start 01/16/17 at 09:00 Fish Oil (Fish Oil) 1,000 mg TID PO Last administered on 01/23/17 13:30; Start 01/16/17 at 09:00; Stop 01/23/17 at 16:30; Status DC Potassium Chloride (Klor-Con) 40 meq 1X ONCE PO Last administered on 06:30; Start 01/16/17 at 06:30; Stop 01/16/17 at 06:31; Status DC Potassium Chloride (Klor-Con) 40 meq 1X ONCE PO ; Start 01/16/17 at 12:45; Stop 01/16/17 at 12:46; Status DC Vitamin D (Vitamin D3) 50,000 unit WEEKLY PO ; Start 01/16/17 at 17:15; Stop 01/16/17 at 18:10; Status DC Cyanocobalamin (Vitamin B-12) 1,000 mcg DAILY IM ; Start 01/16/17 at 17:15; Stop 01/16/17 at 18:10; Status DC Cyanocobalamin (Vitamin B-12) 1,000 mcg [id number] IM ; Start 02/13/17 at 09:00 Vitamin D (Vitamin D3) 50,000 unit WEEKLY PO Last administered on 01/24/17 08: 09; Start 01/17/17 at 09:00 Cyanocobalamin (Vitamin B-12) 1,000 mcg DAILY IM Last administered on 09:43; Start 01/17/17 at 09:00; Stop 01/21/17 at 08:59; Status DC Olanzapine (ZyPREXA ZYDIS) 2.5 mg PRN Q2HR PRN PO PSYCHOSIS Last administered on 01/16/17 19:39; Start 01/16/17 at 18:45 Potassium Chloride (Klor-Con) 40 meq BID PO Last administered on 01/18/17 19: 24; Start 01/17/17 at 12:00; Stop 01/18/17 at 23:01; Status DC Prenat Multivit/ Range Mounter/Iron/Folic Ac (Multivitamin ) 1 tab DAILYBFRSUP PO Last administered on 01/28/17 17:00; Start 01/17/17 at 17:00 Divalproex Sodium (Depakote Sprinkles) 125 mg TID PO Last administered on 13:30; Start 01/17/17 at 21:00; Stop 01/23/17 at 18:02; Status DC Trazodone HCl (Desyrel) 100 mg PRN QHS PRN PO IF REPEAT NEEDED Last administered on 01/22/17 01:34; Start 01/17/17 at 18:45 Trazodone HCl (Desyrel) 100 mg HS PO Last administered on 01/27/17 19:52; Start 01/17/17 at 21:00 Sertraline HCl (Zoloft) 25 mg DAILY PO Last administered on 01/21/17 08:11; Start 01/21/17 at 09:00; Stop 01/21/17 at 18:41; Status DC Sertraline HCl (Zoloft) 50 mg DAILY PO Last administered on 01/27/17 07:54; Start 01/22/17 at 09:00; Stop 01/27/17 at 18:53; Status DC Divalproex Sodium (Depakote Sprinkles) 250 mg BID PO Last administered on 01/28 08:13; Start 01/23/17 at 21:00 Divalproex Sodium (Depakote Sprinkles) 125 mg DAILY@1400 PO Last administered on 01/28/17 14:50; Start 01/24/17 at 14:00 Sertraline HCl (Zoloft) 75 mg DAILY PO Last administered on 01/28/17 08:14; Start 01/28/17 at 09:00; Stop 01/28/17 at 19:15; Status DC Sertraline HCl (Zoloft) 100 mg DAILY PO ; Start 01/29/17 at 09:00 Active Scripts Active Reported Tylenol (Acetaminophen) 325 Mg Tablet 650 Mg PO PRN Q48HR PRN Trazodone Hcl 50 Mg Tablet 75 Mg PO PRN 2PM Trazodone Hcl 150 Mg Tablet 75 Mg PO HS Simvastatin 40 Mg Tablet 40 Mg PO HS Questran Packet (Cholestyramine (With Sugar)) 4 Gm Powd.pack 4 Gm PO DAILY Pentasa (Mesalamine) 500 Mg Capsule.er 1,000 Mg PO QID Miralax (Polyethylene Glycol 3350) 17 Gm Powd.pack 17 Gm PO DAILY Namenda (Memantine Hcl) 10 Mg Tablet 10 Mg PO BID Losartan Potassium 50 Mg Tablet 50 Mg PO DAILY Fish Oil 1,200 mg Softgel ([place]-3/Dha/Epa/Fish Oil) 1 Each Capsule.dr 1 Each PO TID Depakote Sprinkle (Divalproex Sodium) 125 Mg Cap.sprink 125 Mg PO DAILY I have reviewed the current psychotropics carefully including drug interactions. Risk benefit ratio favors no change other than as noted in my dictated progress note. Diagnosis: Problems: (1) Mental status change (2) Anxiety disorder (3) Dementia in Alzheimer's disease with delusions (4) Dementia in Alzheimer's disease with depression (5) Dementia, vascular, with delusions (6) Dementia, vascular, with depression (7) Impulse control disorder GLADIS MCCOY MD Jan 28, 2017 20:04
[2017-01-28] MEDS: traZODone 100 MG TABLET. PO SCH (20:09)
[2017-01-28] MEDS: SIMVASTATIN 40 MG TABLET. PO SCH (20:10)
[2017-01-29 05:54] VITALS: BP 131/69
[2017-01-29] MEDS ORDERED: SERTRALINE 100 MG TABLET. PO SCH (09:00)
[2017-01-29] MEDS: LOSARTAN 50 MG TABLET. PO SCH (10:04)
[2017-01-29] MEDS: DIVALPROEX 125 MG CAP.SPRINK PO SCH ×3 (10:04→20:05)
[2017-01-29] MEDS: POLYETHYLENE GLYCOL 3350 17 GM PACKET. PO SCH (10:05)
[2017-01-29] MEDS: CHOLESTYRAMINE/ASPARTAME 4 GM PACKET PO SCH (10:05)
[2017-01-29] MEDS: MESALAMINE ER 250 MG CAPSULE.ER PO SCH ×4 (10:05→20:06)
[2017-01-29 15:57] VITALS: BP 155/85
[2017-01-29] MEDS: MAGNESIUM HYDROXIDE 2,400 MG/30 ML ORAL.SUSP. PO PRN (17:05)
[2017-01-29] MEDS: PRENATAL MULTIVITAMIN TABLET. PO SCH (17:06)
[2017-01-29 19:16] LABS: ALBUMIN 3.3 g/dL (3.4-5.0); ALBUMIN/GLOBULIN RATIO 0.8 (1.0-1.7); CALCIUM 9.5 mg/dL (8.5-10.1); CREATININE 0.9 mg/dL (0.6-1.0); GFR 60.9; POTASSIUM 4.1 mmol/L (3.5-5.1); TOTAL BILIRUBIN 0.4 mg/dL (0.2-1.0); TOTAL PROTEIN 7.4 g/dL (6.4-8.2)
[2017-01-29] MEDS: traZODone 100 MG TABLET. PO SCH (20:05)
[2017-01-29] MEDS: SIMVASTATIN 40 MG TABLET. PO SCH (20:05)
--- NOTE | 2017-01-29 21:27 | PDOC ---
Exam Note: Didier Note: Please also refer to the separate dictated note~for this date of service dictated separately.~Patient seen individually. Discussed the patient with Nursing staff reviewed the chart.~Reviewed interim history and current functioning. Reviewed vital signs,~Labs/ Radiology~and current medications noted below. Continue current treatment with the changes noted in the dictated addendum note Assessment: Vital Signs: Vital Signs Date Time Temp Pulse Resp B/P (MAP) Pulse Ox O2 Delivery O2 Flow Rate FiO2 01/29/17 15:57 98.7 84 16 155/85 (108) 92 01/27/17 16:25 Room Air I&O Intake and Output 01/29/17 06:59 Intake Total 720 ml Balance 720 ml Intake Oral 720 ml # Voids 1 Labs: Laboratory Tests Test 01/29/17 18:45 Sodium Level 147 mmol/L (136-145) H Potassium Level 4.1 mmol/L (3.5-5.1) Chloride Level 109 mmol/L (98-107) H Carbon Dioxide Level 28 mmol/L (21-32) Anion Gap 10 (6-14) Blood Urea Nitrogen 20 mg/dL (7-20) Creatinine 0.9 mg/dL (0.6-1.0) Estimated GFR (Cockcroft-Gault) 60.9 BUN/Creatinine Ratio 22 (6-20) H Glucose Level 150 mg/dL (70-99) H Calcium Level 9.5 mg/dL (8.5-10.1) Total Bilirubin 0.4 mg/dL (0.2-1.0) Aspartate Amino Transferase (AST) 26 U/L (15-37) Alanine Aminotransferase (ALT) 27 U/L (14-59) Alkaline Phosphatase 58 U/L (46-116) Total Protein 7.4 g/dL (6.4-8.2) Albumin 3.3 g/dL (3.4-5.0) L Albumin/Globulin Ratio 0.8 (1.0-1.7) L Current Medications: Meds: Current Medications Lorazepam (Ativan) 2 mg 1X ONCE PO ; Start 01/15/17 at 20:15; Stop 01/15/17 at 20:16; Status DC Diphenhydramine HCl (Benadryl) 50 mg STK-MED ONCE .ROUTE ; Start 01/15/17 at 19 :28; Stop 01/15/17 at 19:29; Status DC Lorazepam (Ativan) 2 mg STK-MED ONCE .ROUTE ; Start 01/15/17 at 19:28; Stop at 19:29; Status DC Diphenhydramine HCl (Benadryl) 50 mg 1X ONCE IM Last administered on 19:35; Start 01/15/17 at 19:30; Stop 01/15/17 at 20:15; Status DC Lorazepam (Ativan) 2 mg 1X ONCE IM Last administered on 01/15/17 19:35; Start 01/15/17 at 19:30; Stop 01/15/17 at 20:15; Status DC Lorazepam (Ativan) 1 mg 1X ONCE PO ; Start 01/15/17 at 21:45; Stop 01/15/17 at 21:46; Status DC Lorazepam (Ativan) 2 mg 1X ONCE IM Last administered on 01/15/17 22:20; Start 01/15/17 at 22:45; Stop 01/15/17 at 22:46; Status DC Ziprasidone (Geodon Im) 10 mg 1X ONCE IM Last administered on 01/15/17 22:45 ; Start 01/15/17 at 22:45; Stop 01/15/17 at 22:46; Status DC Acetaminophen (Tylenol) 650 mg PRN Q6HRS PRN PO MILD PAIN / TEMP; Start at 03:45 Multi-Ingredient Ointment (Analgesic [place]) 1 rafat PRN QID PRN TP MUSCLE PAIN; Start 01/16/17 at 03:45 Al Hydroxide/Mg Hydroxide (Mylanta Plus Xs) 15 ml PRN AFTMEALHC PRN PO DYSPEPSIA; Start 01/16/17 at 03:45 Magnesium Hydroxide (Milk Of Magnesia) 2,400 mg PRN QHS PRN PO CONSTIPATION Last administered on 01/29/17 17:05; Start 01/16/17 at 03:45 Divalproex Sodium (Depakote Sprinkles) 125 mg DAILY PO Last administered on 11:03; Start 01/16/17 at 09:00; Stop 01/17/17 at 18:37; Status DC Memantine (Namenda) 10 mg BID PO Last administered on 01/16/17 12:23; Start 01/16/17 at 09:00; Stop 01/16/17 at 19:00; Status DC Trazodone HCl (Desyrel) 75 mg HS PO Last administered on 01/16/17 19:38; Start 01/16/17 at 21:00; Stop 01/17/17 at 18:37; Status DC Trazodone HCl (Desyrel) 75 mg PRN QHS PRN PO IF REPEAT NEEDED Last administered on 01/16/17 20:29; Start 01/16/17 at 04:00; Stop 01/17/17 at 18 :37; Status DC Acetaminophen (Tylenol) 650 mg PRN Q48HR PRN PO PAIN; Start 01/16/17 at 06:15 ; Status UNV Losartan Potassium (Cozaar) 50 mg DAILY PO Last administered on 01/29/17 10: 04; Start 01/16/17 at 09:00 Polyethylene Glycol (miraLAX) 17 gm DAILY PO Last administered on 01/29/17 10 :05; Start 01/16/17 at 09:00 Simvastatin (Zocor) 40 mg HS PO Last administered on 01/29/17 20:05; Start 01/16/17 at 21:00 Cholestyramine Resin (Questran Light) 4 gm DAILY PO Last administered on 10:05; Start 01/16/17 at 09:00 Mesalamine (Pentasa) 1,000 mg [id number] PO Last administered on 01/29/17 20:06 ; Start 01/16/17 at 09:00 Fish Oil (Fish Oil) 1,000 mg TID PO Last administered on 01/23/17 13:30; Start 01/16/17 at 09:00; Stop 01/23/17 at 16:30; Status DC Potassium Chloride (Klor-Con) 40 meq 1X ONCE PO Last administered on 06:30; Start 01/16/17 at 06:30; Stop 01/16/17 at 06:31; Status DC Potassium Chloride (Klor-Con) 40 meq 1X ONCE PO ; Start 01/16/17 at 12:45; Stop 01/16/17 at 12:46; Status DC Vitamin D (Vitamin D3) 50,000 unit WEEKLY PO ; Start 01/16/17 at 17:15; Stop 01/16/17 at 18:10; Status DC Cyanocobalamin (Vitamin B-12) 1,000 mcg DAILY IM ; Start 01/16/17 at 17:15; Stop 01/16/17 at 18:10; Status DC Cyanocobalamin (Vitamin B-12) 1,000 mcg [id number] IM ; Start 02/13/17 at 09:00 Vitamin D (Vitamin D3) 50,000 unit WEEKLY PO Last administered on 01/24/17 08: 09; Start 01/17/17 at 09:00 Cyanocobalamin (Vitamin B-12) 1,000 mcg DAILY IM Last administered on 09:43; Start 01/17/17 at 09:00; Stop 01/21/17 at 08:59; Status DC Olanzapine (ZyPREXA ZYDIS) 2.5 mg PRN Q2HR PRN PO PSYCHOSIS Last administered on 01/16/17 19:39; Start 01/16/17 at 18:45 Potassium Chloride (Klor-Con) 40 meq BID PO Last administered on 01/18/17 19: 24; Start 01/17/17 at 12:00; Stop 01/18/17 at 23:01; Status DC Prenat Multivit/ [place]/Iron/Folic Ac (Multivitamin ) 1 tab DAILYBFRSUP PO Last administered on 01/29/17 17:06; Start 01/17/17 at 17:00 Divalproex Sodium (Depakote Sprinkles) 125 mg TID PO Last administered on 13:30; Start 01/17/17 at 21:00; Stop 01/23/17 at 18:02; Status DC Trazodone HCl (Desyrel) 100 mg PRN QHS PRN PO IF REPEAT NEEDED Last administered on 01/22/17 01:34; Start 01/17/17 at 18:45 Trazodone HCl (Desyrel) 100 mg HS PO Last administered on 01/29/17 20:05; Start 01/17/17 at 21:00 Sertraline HCl (Zoloft) 25 mg DAILY PO Last administered on 01/21/17 08:11; Start 01/21/17 at 09:00; Stop 01/21/17 at 18:41; Status DC Sertraline HCl (Zoloft) 50 mg DAILY PO Last administered on 01/27/17 07:54; Start 01/22/17 at 09:00; Stop 01/27/17 at 18:53; Status DC Divalproex Sodium (Depakote Sprinkles) 250 mg BID PO Last administered on 01/29 20:05; Start 01/23/17 at 21:00 Divalproex Sodium (Depakote Sprinkles) 125 mg DAILY@1400 PO Last administered on 01/29/17 13:38; Start 01/24/17 at 14:00 Sertraline HCl (Zoloft) 75 mg DAILY PO Last administered on 01/28/17 08:14; Start 01/28/17 at 09:00; Stop 01/28/17 at 19:15; Status DC Sertraline HCl (Zoloft) 100 mg DAILY PO Last administered on 01/29/17 10:05; Start 01/29/17 at 09:00; Stop 01/29/17 at 18:31; Status DC Sertraline HCl (Zoloft) 100 mg QHS PO ; Start 01/30/17 at 21:00 Active Scripts Active Reported Tylenol (Acetaminophen) 325 Mg Tablet 650 Mg PO PRN Q48HR PRN Trazodone Hcl 50 Mg Tablet 75 Mg PO PRN 2PM Trazodone Hcl 150 Mg Tablet 75 Mg PO HS Simvastatin 40 Mg Tablet 40 Mg PO HS Questran Packet (Cholestyramine (With Sugar)) 4 Gm Powd.pack 4 Gm PO DAILY Pentasa (Mesalamine) 500 Mg Capsule.er 1,000 Mg PO QID Miralax (Polyethylene Glycol 3350) 17 Gm Powd.pack 17 Gm PO DAILY Namenda (Memantine Hcl) 10 Mg Tablet 10 Mg PO BID Losartan Potassium 50 Mg Tablet 50 Mg PO DAILY Fish Oil 1,200 mg Softgel ([place]-3/Dha/Epa/Fish Oil) 1 Each Capsule. 1 Each PO TID Depakote Sprinkle (Divalproex Sodium) 125 Mg Cap.sprink 125 Mg PO DAILY I have reviewed the current psychotropics carefully including drug interactions. Risk benefit ratio favors no change other than as noted in my dictated progress note. Diagnosis: Problems: (1) Mental status change (2) Anxiety disorder (3) Dementia in Alzheimer's disease with delusions (4) Dementia in Alzheimer's disease with depression (5) Dementia, vascular, with delusions (6) Dementia, vascular, with depression (7) Impulse control disorder GLADIS MCCOY MD Jan 29, 2017 21:27
--- NOTE | 2017-01-29 23:08 | PN ---
DATE: 01/28/2017 This late entry for 01/28/2017 covers elements not covered in my initial note of 01/28/2017. SUBJECTIVE: I met with the patient in the evening 01/28/2017. The patient has been less combative, remains confused, keeps her eyes closed much of the time. UA was mixed krystle. REVIEW OF SYSTEMS: Ambulation impaired, in Broda chair. No CV, , pulmonary, eye, ENT system symptoms on review. Reliability poor. MENTAL STATUS EXAM: Oriented to herself. Insight, judgment, recent and remote memory, attention, concentration, fund of knowledge poor, consistent with her diagnosis mentioned in my initial note. PLAN: Increase Zoloft from 75 mg a day to 100 mg a day on 01/29/2017. Rest unchanged from initial note. Adjust further as clinically indicated. MAN Sarita MCCOY MD DR: VIIVAN/alma JOB#: [id number] / [id number]
[2017-01-30 05:57] VITALS: BP 149/69
[2017-01-30] MEDS: LOSARTAN 50 MG TABLET. PO SCH (10:26)
[2017-01-30] MEDS: MESALAMINE ER 250 MG CAPSULE.ER PO SCH ×4 (10:26→20:42)
[2017-01-30] MEDS: POLYETHYLENE GLYCOL 3350 17 GM PACKET. PO SCH (10:26)
[2017-01-30] MEDS: DIVALPROEX 125 MG CAP.SPRINK PO SCH ×3 (10:26→20:41)
[2017-01-30] MEDS: CHOLESTYRAMINE/ASPARTAME 4 GM PACKET PO SCH (10:26)
[2017-01-30 16:09] VITALS: BP 115/80
[2017-01-30] MEDS: PRENATAL MULTIVITAMIN TABLET. PO SCH (16:45)
[2017-01-30] MEDS: traZODone 100 MG TABLET. PO SCH (20:41)
[2017-01-30] MEDS: SIMVASTATIN 40 MG TABLET. PO SCH (20:41)
[2017-01-30] MEDS: SERTRALINE 100 MG TABLET. PO SCH (20:42)
--- NOTE | 2017-01-30 22:09 | PDOC ---
Exam Note: Didier Note: Please also refer to the separate dictated note~for this date of service dictated separately.~Patient seen individually. Discussed the patient with Nursing staff reviewed the chart.~Reviewed interim history and current functioning. Reviewed vital signs,~Labs/ Radiology~and current medications noted below. Continue current treatment with the changes noted in the dictated addendum note Assessment: Vital Signs: Vital Signs Date Time Temp Pulse Resp B/P (MAP) Pulse Ox O2 Delivery O2 Flow Rate FiO2 01/30/17 16:09 98.6 99 18 115/80 (92) 95 01/27/17 16:25 Room Air I&O Intake and Output 01/30/17 07:00 Intake Total 1040 ml Balance 1040 ml Intake Oral 1040 ml Current Medications: Meds: Current Medications Lorazepam (Ativan) 2 mg 1X ONCE PO ; Start 01/15/17 at 20:15; Stop 01/15/17 at 20:16; Status DC Diphenhydramine HCl (Benadryl) 50 mg STK-MED ONCE .ROUTE ; Start 01/15/17 at 19 :28; Stop 01/15/17 at 19:29; Status DC Lorazepam (Ativan) 2 mg STK-MED ONCE .ROUTE ; Start 01/15/17 at 19:28; Stop at 19:29; Status DC Diphenhydramine HCl (Benadryl) 50 mg 1X ONCE IM Last administered on 19:35; Start 01/15/17 at 19:30; Stop 01/15/17 at 20:15; Status DC Lorazepam (Ativan) 2 mg 1X ONCE IM Last administered on 01/15/17 19:35; Start 01/15/17 at 19:30; Stop 01/15/17 at 20:15; Status DC Lorazepam (Ativan) 1 mg 1X ONCE PO ; Start 01/15/17 at 21:45; Stop 01/15/17 at 21:46; Status DC Lorazepam (Ativan) 2 mg 1X ONCE IM Last administered on 01/15/17 22:20; Start 01/15/17 at 22:45; Stop 01/15/17 at 22:46; Status DC Ziprasidone (Geodon Im) 10 mg 1X ONCE IM Last administered on 01/15/17 22:45 ; Start 01/15/17 at 22:45; Stop 01/15/17 at 22:46; Status DC Acetaminophen (Tylenol) 650 mg PRN Q6HRS PRN PO MILD PAIN / TEMP; Start at 03:45 Multi-Ingredient Ointment (Analgesic [place]) 1 rafat PRN QID PRN TP MUSCLE PAIN; Start 01/16/17 at 03:45 Al Hydroxide/Mg Hydroxide (Mylanta Plus Xs) 15 ml PRN AFTMEALHC PRN PO DYSPEPSIA; Start 01/16/17 at 03:45 Magnesium Hydroxide (Milk Of Magnesia) 2,400 mg PRN QHS PRN PO CONSTIPATION Last administered on 01/29/17 17:05; Start 01/16/17 at 03:45 Divalproex Sodium (Depakote Sprinkles) 125 mg DAILY PO Last administered on 11:03; Start 01/16/17 at 09:00; Stop 01/17/17 at 18:37; Status DC Memantine (Namenda) 10 mg BID PO Last administered on 01/16/17 12:23; Start 01/16/17 at 09:00; Stop 01/16/17 at 19:00; Status DC Trazodone HCl (Desyrel) 75 mg HS PO Last administered on 01/16/17 19:38; Start 01/16/17 at 21:00; Stop 01/17/17 at 18:37; Status DC Trazodone HCl (Desyrel) 75 mg PRN QHS PRN PO IF REPEAT NEEDED Last administered on 01/16/17 20:29; Start 01/16/17 at 04:00; Stop 01/17/17 at 18 :37; Status DC Acetaminophen (Tylenol) 650 mg PRN Q48HR PRN PO PAIN; Start 01/16/17 at 06:15 ; Status UNV Losartan Potassium (Cozaar) 50 mg DAILY PO Last administered on 01/30/17 10: 26; Start 01/16/17 at 09:00 Polyethylene Glycol (miraLAX) 17 gm DAILY PO Last administered on 01/30/17 10 :26; Start 01/16/17 at 09:00 Simvastatin (Zocor) 40 mg HS PO Last administered on 01/30/17 20:41; Start 01/16/17 at 21:00 Cholestyramine Resin (Questran Light) 4 gm DAILY PO Last administered on 10:26; Start 01/16/17 at 09:00 Mesalamine (Pentasa) 1,000 mg [id number] PO Last administered on 01/30/17 20:42 ; Start 01/16/17 at 09:00 Fish Oil (Fish Oil) 1,000 mg TID PO Last administered on 01/23/17 13:30; Start 01/16/17 at 09:00; Stop 01/23/17 at 16:30; Status DC Potassium Chloride (Klor-Con) 40 meq 1X ONCE PO Last administered on 06:30; Start 01/16/17 at 06:30; Stop 01/16/17 at 06:31; Status DC Potassium Chloride (Klor-Con) 40 meq 1X ONCE PO ; Start 01/16/17 at 12:45; Stop 01/16/17 at 12:46; Status DC Vitamin D (Vitamin D3) 50,000 unit WEEKLY PO ; Start 01/16/17 at 17:15; Stop 01/16/17 at 18:10; Status DC Cyanocobalamin (Vitamin B-12) 1,000 mcg DAILY IM ; Start 01/16/17 at 17:15; Stop 01/16/17 at 18:10; Status DC Cyanocobalamin (Vitamin B-12) 1,000 mcg [id number] IM ; Start 02/13/17 at 09:00 Vitamin D (Vitamin D3) 50,000 unit WEEKLY PO Last administered on 01/24/17 08: 09; Start 01/17/17 at 09:00 Cyanocobalamin (Vitamin B-12) 1,000 mcg DAILY IM Last administered on 09:43; Start 01/17/17 at 09:00; Stop 01/21/17 at 08:59; Status DC Olanzapine (ZyPREXA ZYDIS) 2.5 mg PRN Q2HR PRN PO PSYCHOSIS Last administered on 01/16/17 19:39; Start 01/16/17 at 18:45 Potassium Chloride (Klor-Con) 40 meq BID PO Last administered on 01/18/17 19: 24; Start 01/17/17 at 12:00; Stop 01/18/17 at 23:01; Status DC Prenat Multivit/ [place]/Iron/Folic Ac (Multivitamin ) 1 tab DAILYBFRSUP PO Last administered on 01/30/17 16:45; Start 01/17/17 at 17:00 Divalproex Sodium (Depakote Sprinkles) 125 mg TID PO Last administered on 13:30; Start 01/17/17 at 21:00; Stop 01/23/17 at 18:02; Status DC Trazodone HCl (Desyrel) 100 mg PRN QHS PRN PO IF REPEAT NEEDED Last administered on 01/22/17 01:34; Start 01/17/17 at 18:45 Trazodone HCl (Desyrel) 100 mg HS PO Last administered on 01/30/17 20:41; Start 01/17/17 at 21:00 Sertraline HCl (Zoloft) 25 mg DAILY PO Last administered on 01/21/17 08:11; Start 01/21/17 at 09:00; Stop 01/21/17 at 18:41; Status DC Sertraline HCl (Zoloft) 50 mg DAILY PO Last administered on 01/27/17 07:54; Start 01/22/17 at 09:00; Stop 01/27/17 at 18:53; Status DC Divalproex Sodium (Depakote Sprinkles) 250 mg BID PO Last administered on 01/30 20:41; Start 01/23/17 at 21:00 Divalproex Sodium (Depakote Sprinkles) 125 mg DAILY@1400 PO Last administered on 01/30/17 13:51; Start 01/24/17 at 14:00 Sertraline HCl (Zoloft) 75 mg DAILY PO Last administered on 01/28/17 08:14; Start 01/28/17 at 09:00; Stop 01/28/17 at 19:15; Status DC Sertraline HCl (Zoloft) 100 mg DAILY PO Last administered on 01/29/17 10:05; Start 01/29/17 at 09:00; Stop 01/29/17 at 18:31; Status DC Sertraline HCl (Zoloft) 100 mg QHS PO Last administered on 12/12/17at 20:42; Start 01/30/17 at 21:00 Active Scripts Active Reported Tylenol (Acetaminophen) 325 Mg Tablet 650 Mg PO PRN Q48HR PRN Trazodone Hcl 50 Mg Tablet 75 Mg PO PRN 2PM Trazodone Hcl 150 Mg Tablet 75 Mg PO HS Simvastatin 40 Mg Tablet 40 Mg PO HS Questran Packet (Cholestyramine (With Sugar)) 4 Gm Powd.pack 4 Gm PO DAILY Pentasa (Mesalamine) 500 Mg Capsule.er 1,000 Mg PO QID Miralax (Polyethylene Glycol 3350) 17 Gm Powd.pack 17 Gm PO DAILY Namenda (Memantine Hcl) 10 Mg Tablet 10 Mg PO BID Losartan Potassium 50 Mg Tablet 50 Mg PO DAILY Fish Oil 1,200 mg Softgel ([place]-3/Dha/Epa/Fish Oil) 1 Each Capsule.dr 1 Each PO TID Depakote Sprinkle (Divalproex Sodium) 125 Mg Cap.sprink 125 Mg PO DAILY I have reviewed the current psychotropics carefully including drug interactions. Risk benefit ratio favors no change other than as noted in my dictated progress note. Diagnosis: Problems: (1) Mental status change (2) Anxiety disorder (3) Dementia in Alzheimer's disease with delusions (4) Dementia in Alzheimer's disease with depression (5) Dementia, vascular, with delusions (6) Dementia, vascular, with depression (7) Impulse control disorder GLADIS MCCOY MD Jan 30, 2017 22:09
[2017-01-31 06:23] VITALS: BP 125/70
--- NOTE | 2017-01-31 08:21 | PN ---
DATE: 01/29/2017 This is a late entry for 01/29/2017 and covers the elements not covered in my initial note of 01/29/2017. SUBJECTIVE: I met with the patient in the evening of 01/29/2017. The patient slept 7-3/4 hours previous evening, somewhat drowsy the day before. We will check a CMP on 01/29/2017 since the last BUN was 23 on the . REVIEW OF SYSTEMS: Ambulation impaired, in Broda chair. No CV, , pulmonary, eye, ENT system symptoms on review. Reliability poor. MENTAL STATUS EXAM: Oriented to herself. Insight, judgment, recent and remote memory, attention, concentration, fund of knowledge poor, consistent with her diagnosis mentioned in my initial note. PLAN: Check labs as above. Continue Zoloft 100 mg and change it to bedtime, Namenda was stopped, maintain Depakote Sprinkles 125 mg daily at 1400 and 250 mg b.i.d., trazodone 100 mg at bedtime, june repeat x 1; Zyprexa p.r.n. Adjust further as clinically indicated. MAN Sarita MCCOY MD DR: VIVIAN/alma JOB#: [id number] / [id number]
[2017-01-31] MEDS: CHOLESTYRAMINE/ASPARTAME 4 GM PACKET PO SCH (09:41)
[2017-01-31] MEDS: MESALAMINE ER 250 MG CAPSULE.ER PO SCH ×4 (09:41→19:56)
[2017-01-31] MEDS: POLYETHYLENE GLYCOL 3350 17 GM PACKET. PO SCH (09:41)
[2017-01-31] MEDS: LOSARTAN 50 MG TABLET. PO SCH (09:42)
[2017-01-31] MEDS: DIVALPROEX 125 MG CAP.SPRINK PO SCH ×3 (09:42→19:55)
[2017-01-31] MEDS: CHOLECALCIFEROL (VITAMIN D3) 50,000 UNIT CAPSULE PO SCH (09:43)
[2017-01-31 16:30] VITALS: BP 123/73
[2017-01-31] MEDS: PRENATAL MULTIVITAMIN TABLET. PO SCH (17:06)
[2017-01-31] MEDS: traZODone 100 MG TABLET. PO SCH (19:55)
[2017-01-31] MEDS: SIMVASTATIN 40 MG TABLET. PO SCH (19:55)
[2017-01-31] MEDS: SERTRALINE 100 MG TABLET. PO SCH (19:55)
--- NOTE | 2017-01-31 20:11 | PDOC ---
Exam Note: Didier Note: Please also refer to the separate dictated note~for this date of service dictated separately.~Patient seen individually. Discussed the patient with Nursing staff reviewed the chart.~Reviewed interim history and current functioning. Reviewed vital signs,~Labs/ Radiology~and current medications noted below. Continue current treatment with the changes noted in the dictated addendum note Assessment: Vital Signs: Vital Signs Date Time Temp Pulse Resp B/P (MAP) Pulse Ox O2 Delivery O2 Flow Rate FiO2 01/31/17 16:30 98.3 85 18 123/73 (90) 98 01/27/17 16:25 Room Air I&O Intake and Output 01/31/17 07:00 Intake Total 1200 ml Balance 1200 ml Intake Oral 1200 ml # Bowel Movements 2 Current Medications: Meds: Current Medications Lorazepam (Ativan) 2 mg 1X ONCE PO ; Start 01/15/17 at 20:15; Stop 01/15/17 at 20:16; Status DC Diphenhydramine HCl (Benadryl) 50 mg STK-MED ONCE .ROUTE ; Start 01/15/17 at 19 :28; Stop 01/15/17 at 19:29; Status DC Lorazepam (Ativan) 2 mg STK-MED ONCE .ROUTE ; Start 01/15/17 at 19:28; Stop at 19:29; Status DC Diphenhydramine HCl (Benadryl) 50 mg 1X ONCE IM Last administered on 19:35; Start 01/15/17 at 19:30; Stop 01/15/17 at 20:15; Status DC Lorazepam (Ativan) 2 mg 1X ONCE IM Last administered on 01/15/17 19:35; Start 01/15/17 at 19:30; Stop 01/15/17 at 20:15; Status DC Lorazepam (Ativan) 1 mg 1X ONCE PO ; Start 01/15/17 at 21:45; Stop 01/15/17 at 21:46; Status DC Lorazepam (Ativan) 2 mg 1X ONCE IM Last administered on 01/15/17 22:20; Start 01/15/17 at 22:45; Stop 01/15/17 at 22:46; Status DC Ziprasidone (Geodon Im) 10 mg 1X ONCE IM Last administered on 01/15/17 22:45 ; Start 01/15/17 at 22:45; Stop 01/15/17 at 22:46; Status DC Acetaminophen (Tylenol) 650 mg PRN Q6HRS PRN PO MILD PAIN / TEMP; Start at 03:45 Multi-Ingredient Ointment (Analgesic [place]) 1 rafat PRN QID PRN TP MUSCLE PAIN; Start 01/16/17 at 03:45 Al Hydroxide/Mg Hydroxide (Mylanta Plus Xs) 15 ml PRN AFTMEALHC PRN PO DYSPEPSIA; Start 01/16/17 at 03:45 Magnesium Hydroxide (Milk Of Magnesia) 2,400 mg PRN QHS PRN PO CONSTIPATION Last administered on 01/29/17 17:05; Start 01/16/17 at 03:45 Divalproex Sodium (Depakote Sprinkles) 125 mg DAILY PO Last administered on 11:03; Start 01/16/17 at 09:00; Stop 01/17/17 at 18:37; Status DC Memantine (Namenda) 10 mg BID PO Last administered on 01/16/17 12:23; Start 01/16/17 at 09:00; Stop 01/16/17 at 19:00; Status DC Trazodone HCl (Desyrel) 75 mg HS PO Last administered on 01/16/17 19:38; Start 01/16/17 at 21:00; Stop 01/17/17 at 18:37; Status DC Trazodone HCl (Desyrel) 75 mg PRN QHS PRN PO IF REPEAT NEEDED Last administered on 01/16/17 20:29; Start 01/16/17 at 04:00; Stop 01/17/17 at 18 :37; Status DC Acetaminophen (Tylenol) 650 mg PRN Q48HR PRN PO PAIN; Start 01/16/17 at 06:15 ; Status UNV Losartan Potassium (Cozaar) 50 mg DAILY PO Last administered on 01/31/17 09: 42; Start 01/16/17 at 09:00 Polyethylene Glycol (miraLAX) 17 gm DAILY PO Last administered on 01/31/17 09 :41; Start 01/16/17 at 09:00 Simvastatin (Zocor) 40 mg HS PO Last administered on 01/31/17 19:55; Start 01/16/17 at 21:00 Cholestyramine Resin (Questran Light) 4 gm DAILY PO Last administered on 09:41; Start 01/16/17 at 09:00 Mesalamine (Pentasa) 1,000 mg [id number] PO Last administered on 01/31/17 19:56 ; Start 01/16/17 at 09:00 Fish Oil (Fish Oil) 1,000 mg TID PO Last administered on 01/23/17 13:30; Start 01/16/17 at 09:00; Stop 01/23/17 at 16:30; Status DC Potassium Chloride (Klor-Con) 40 meq 1X ONCE PO Last administered on 06:30; Start 01/16/17 at 06:30; Stop 01/16/17 at 06:31; Status DC Potassium Chloride (Klor-Con) 40 meq 1X ONCE PO ; Start 01/16/17 at 12:45; Stop 01/16/17 at 12:46; Status DC Vitamin D (Vitamin D3) 50,000 unit WEEKLY PO ; Start 01/16/17 at 17:15; Stop 01/16/17 at 18:10; Status DC Cyanocobalamin (Vitamin B-12) 1,000 mcg DAILY IM ; Start 01/16/17 at 17:15; Stop 01/16/17 at 18:10; Status DC Cyanocobalamin (Vitamin B-12) 1,000 mcg [id number] IM ; Start 02/13/17 at 09:00 Vitamin D (Vitamin D3) 50,000 unit WEEKLY PO Last administered on 01/31/17 09 :43; Start 01/17/17 at 09:00 Cyanocobalamin (Vitamin B-12) 1,000 mcg DAILY IM Last administered on 09:43; Start 01/17/17 at 09:00; Stop 01/21/17 at 08:59; Status DC Olanzapine (ZyPREXA ZYDIS) 2.5 mg PRN Q2HR PRN PO PSYCHOSIS Last administered on 01/16/17 19:39; Start 01/16/17 at 18:45 Potassium Chloride (Klor-Con) 40 meq BID PO Last administered on 01/18/17 19: 24; Start 01/17/17 at 12:00; Stop 01/18/17 at 23:01; Status DC Prenat Multivit/ [place]/Iron/Folic Ac (Multivitamin ) 1 tab DAILYBFRSUP PO Last administered on 01/31/17 17:06; Start 01/17/17 at 17:00 Divalproex Sodium (Depakote Sprinkles) 125 mg TID PO Last administered on 13:30; Start 01/17/17 at 21:00; Stop 01/23/17 at 18:02; Status DC Trazodone HCl (Desyrel) 100 mg PRN QHS PRN PO IF REPEAT NEEDED Last administered on 01/22/17 01:34; Start 01/17/17 at 18:45 Trazodone HCl (Desyrel) 100 mg HS PO Last administered on 01/31/17 19:55; Start 01/17/17 at 21:00 Sertraline HCl (Zoloft) 25 mg DAILY PO Last administered on 01/21/17 08:11; Start 01/21/17 at 09:00; Stop 01/21/17 at 18:41; Status DC Sertraline HCl (Zoloft) 50 mg DAILY PO Last administered on 01/27/17 07:54; Start 01/22/17 at 09:00; Stop 01/27/17 at 18:53; Status DC Divalproex Sodium (Depakote Sprinkles) 250 mg BID PO Last administered on 01/31 19:55; Start 01/23/17 at 21:00 Divalproex Sodium (Depakote Sprinkles) 125 mg DAILY@1400 PO Last administered on 01/31/17 14:08; Start 01/24/17 at 14:00 Sertraline HCl (Zoloft) 75 mg DAILY PO Last administered on 01/28/17 08:14; Start 01/28/17 at 09:00; Stop 01/28/17 at 19:15; Status DC Sertraline HCl (Zoloft) 100 mg DAILY PO Last administered on 01/29/17 10:05; Start 01/29/17 at 09:00; Stop 01/29/17 at 18:31; Status DC Sertraline HCl (Zoloft) 100 mg QHS PO Last administered on 12/13/17at 19:55; Start 01/30/17 at 21:00 Active Scripts Active Reported Tylenol (Acetaminophen) 325 Mg Tablet 650 Mg PO PRN Q48HR PRN Trazodone Hcl 50 Mg Tablet 75 Mg PO PRN 2PM Trazodone Hcl 150 Mg Tablet 75 Mg PO HS Simvastatin 40 Mg Tablet 40 Mg PO HS Questran Packet (Cholestyramine (With Sugar)) 4 Gm Powd.pack 4 Gm PO DAILY Pentasa (Mesalamine) 500 Mg Capsule.er 1,000 Mg PO QID Miralax (Polyethylene Glycol 3350) 17 Gm Powd.pack 17 Gm PO DAILY Namenda (Memantine Hcl) 10 Mg Tablet 10 Mg PO BID Losartan Potassium 50 Mg Tablet 50 Mg PO DAILY Fish Oil 1,200 mg Softgel ([place]-3/Dha/Epa/Fish Oil) 1 Each Capsule.dr 1 Each PO TID Depakote Sprinkle (Divalproex Sodium) 125 Mg Cap.sprink 125 Mg PO DAILY I have reviewed the current psychotropics carefully including drug interactions. Risk benefit ratio favors no change other than as noted in my dictated progress note. Diagnosis: Problems: (1) Mental status change (2) Anxiety disorder (3) Dementia in Alzheimer's disease with delusions (4) Dementia in Alzheimer's disease with depression (5) Dementia, vascular, with delusions (6) Dementia, vascular, with depression (7) Impulse control disorder GLADIS MCCOY MD Jan 31, 2017 20:11
[2017-01-31] MEDS ORDERED: CHOL500050 PO (21:57)
[2017-01-31] MEDS ORDERED: CYAN10002 IM (21:58)
[2017-01-31] MEDS ORDERED: DIVA125C3 PO (22:00)
[2017-01-31] MEDS ORDERED: MAG355OR17 PO (22:03)
[2017-01-31] MEDS ORDERED: MAGN2400 PO (22:04)
[2017-01-31] MEDS ORDERED: METH29OI TP (22:05)
[2017-01-31] MEDS ORDERED: OLAN5TAB5 PO (22:06)
[2017-01-31] MEDS ORDERED: PNV1TABL25 PO (22:07)
[2017-01-31] MEDS ORDERED: TRAZ-90 PO ×2 (22:08)
[2017-01-31] MEDS ORDERED: SERT100T PO (22:08)
--- NOTE | 2017-02-01 01:28 | PN ---
DATE: 01/30/2017 PSYCHIATRIC PROGRESS NOTE This is a late entry for 01/30/2017, covers elements not covered in my initial note of 01/30/2017. SUBJECTIVE: I met with the patient the evening of 01/30/2017. The patient remains confused, but per nursing report has been better on 01/30/2017 than the day before. Labs are improved as well, no longer in a Broda chair. REVIEW OF SYSTEMS: No CV, , pulmonary, eye, ENT system symptoms on review. Reliability poor. MENTAL STATUS EXAM: Oriented to herself. Insight, judgment, recent and remote memory, attention, concentration, fund of knowledge poor, consistent with her diagnosis mentioned in my initial note. PLAN: Continue psychotropics mentioned in my initial note. Adjust as clinically indicated. IMPRESSION: Major neurocognitive disorder, Alzheimer, vascular with depression, delusion, behavioral disturbance. MAN Sartia MCCOY MD DR: VIVIAN/alma JOB#: [id number] / [id number]
[2017-02-01 06:17] VITALS: BP 116/60
[2017-02-01] MEDS: DIVALPROEX 125 MG CAP.SPRINK PO SCH ×2 (09:51→14:27)
[2017-02-01] MEDS: LOSARTAN 50 MG TABLET. PO SCH (09:51)
[2017-02-01] MEDS: POLYETHYLENE GLYCOL 3350 17 GM PACKET. PO SCH (09:52)
[2017-02-01] MEDS: MESALAMINE ER 250 MG CAPSULE.ER PO SCH ×2 (09:52→14:27)
[2017-02-01] MEDS: CHOLESTYRAMINE/ASPARTAME 4 GM PACKET PO SCH (09:52)
[2017-02-01] MEDS ORDERED: traZODone 100 MG TABLET. PO PRN (13:30)
[2017-02-01 16:33] VITALS: BP 122/76
--- NOTE | 2017-02-01 18:49 | PDOC ---
Exam Note: Didier Note: Please also refer to the separate dictated note~for this date of service dictated separately.~Patient seen individually. Discussed the patient with Nursing staff reviewed the chart.~Reviewed interim history and current functioning. Reviewed vital signs,~Labs/ Radiology~and current medications noted below. Continue current treatment with the changes noted in the dictated addendum note Assessment: Vital Signs: Vital Signs Date Time Temp Pulse Resp B/P (MAP) Pulse Ox O2 Delivery O2 Flow Rate FiO2 02/01/17 16:33 97.0 91 18 122/76 (91) 92 01/27/17 16:25 Room Air I&O Intake and Output 02/01/17 07:00 Intake Total 600 ml Balance 600 ml Intake Oral 600 ml # Bowel Movements 1 Current Medications: Meds: Current Medications Lorazepam (Ativan) 2 mg 1X ONCE PO ; Start 01/15/17 at 20:15; Stop 01/15/17 at 20:16; Status DC Diphenhydramine HCl (Benadryl) 50 mg STK-MED ONCE .ROUTE ; Start 01/15/17 at 19 :28; Stop 01/15/17 at 19:29; Status DC Lorazepam (Ativan) 2 mg STK-MED ONCE .ROUTE ; Start 01/15/17 at 19:28; Stop at 19:29; Status DC Diphenhydramine HCl (Benadryl) 50 mg 1X ONCE IM Last administered on 19:35; Start 01/15/17 at 19:30; Stop 01/15/17 at 20:15; Status DC Lorazepam (Ativan) 2 mg 1X ONCE IM Last administered on 01/15/17 19:35; Start 01/15/17 at 19:30; Stop 01/15/17 at 20:15; Status DC Lorazepam (Ativan) 1 mg 1X ONCE PO ; Start 01/15/17 at 21:45; Stop 01/15/17 at 21:46; Status DC Lorazepam (Ativan) 2 mg 1X ONCE IM Last administered on 01/15/17 22:20; Start 01/15/17 at 22:45; Stop 01/15/17 at 22:46; Status DC Ziprasidone (Geodon Im) 10 mg 1X ONCE IM Last administered on 01/15/17 22:45 ; Start 01/15/17 at 22:45; Stop 01/15/17 at 22:46; Status DC Acetaminophen (Tylenol) 650 mg PRN Q6HRS PRN PO MILD PAIN / TEMP; Start at 03:45; Stop 02/01/17 at 17:56; Status DC Multi-Ingredient Ointment (Analgesic [place]) 1 maury PRN QID PRN TP MUSCLE PAIN; Start 01/16/17 at 03:45; Stop 02/01/17 at 17:56; Status DC Al Hydroxide/Mg Hydroxide (Mylanta Plus Xs) 15 ml PRN AFTMEALHC PRN PO DYSPEPSIA; Start 01/16/17 at 03:45; Stop 02/01/17 at 17:56; Status DC Magnesium Hydroxide (Milk Of Magnesia) 2,400 mg PRN QHS PRN PO CONSTIPATION Last administered on 01/29/17 17:05; Start 01/16/17 at 03:45; Stop 02/01/17 at 17:56; Status DC Divalproex Sodium (Depakote Sprinkles) 125 mg DAILY PO Last administered on 11:03; Start 01/16/17 at 09:00; Stop 01/17/17 at 18:37; Status DC Memantine (Namenda) 10 mg BID PO Last administered on 01/16/17 12:23; Start 01/16/17 at 09:00; Stop 01/16/17 at 19:00; Status DC Trazodone HCl (Desyrel) 75 mg HS PO Last administered on 01/16/17 19:38; Start 01/16/17 at 21:00; Stop 01/17/17 at 18:37; Status DC Trazodone HCl (Desyrel) 75 mg PRN QHS PRN PO IF REPEAT NEEDED Last administered on 01/16/17 20:29; Start 01/16/17 at 04:00; Stop 01/17/17 at 18 :37; Status DC Acetaminophen (Tylenol) 650 mg PRN Q48HR PRN PO PAIN; Start 01/16/17 at 06:15 ; Status UNV Losartan Potassium (Cozaar) 50 mg DAILY PO Last administered on 02/01/17 09: 51; Start 01/16/17 at 09:00; Stop 02/01/17 at 17:56; Status DC Polyethylene Glycol (miraLAX) 17 gm DAILY PO Last administered on 02/01/17 09 :52; Start 01/16/17 at 09:00; Stop 02/01/17 at 17:56; Status DC Simvastatin (Zocor) 40 mg HS PO Last administered on 01/31/17 19:55; Start 01/16/17 at 21:00; Stop 02/01/17 at 17:56; Status DC Cholestyramine Resin (Questran Light) 4 gm DAILY PO Last administered on 09:52; Start 01/16/17 at 09:00; Stop 02/01/17 at 17:56; Status DC Mesalamine (Pentasa) 1,000 mg [id number] PO Last administered on 02/01/17 14:27 ; Start 01/16/17 at 09:00; Stop 02/01/17 at 17:56; Status DC Fish Oil (Fish Oil) 1,000 mg TID PO Last administered on 01/23/17 13:30; Start 01/16/17 at 09:00; Stop 01/23/17 at 16:30; Status DC Potassium Chloride (Klor-Con) 40 meq 1X ONCE PO Last administered on 06:30; Start 01/16/17 at 06:30; Stop 01/16/17 at 06:31; Status DC Potassium Chloride (Klor-Con) 40 meq 1X ONCE PO ; Start 01/16/17 at 12:45; Stop 01/16/17 at 12:46; Status DC Vitamin D (Vitamin D3) 50,000 unit WEEKLY PO ; Start 01/16/17 at 17:15; Stop 01/16/17 at 18:10; Status DC Cyanocobalamin (Vitamin B-12) 1,000 mcg DAILY IM ; Start 01/16/17 at 17:15; Stop 01/16/17 at 18:10; Status DC Cyanocobalamin (Vitamin B-12) 1,000 mcg [id number] IM ; Start 02/13/17 at 09:00; Stop 02/13/17 at 09:00; Status DC Vitamin D (Vitamin D3) 50,000 unit WEEKLY PO Last administered on 01/31/17 09 :43; Start 01/17/17 at 09:00; Stop 02/01/17 at 17:56; Status DC Cyanocobalamin (Vitamin B-12) 1,000 mcg DAILY IM Last administered on 09:43; Start 01/17/17 at 09:00; Stop 01/21/17 at 08:59; Status DC Olanzapine (ZyPREXA ZYDIS) 2.5 mg PRN Q2HR PRN PO PSYCHOSIS Last administered on 01/16/17 19:39; Start 01/16/17 at 18:45; Stop 02/01/17 at 17:56; Status DC Potassium Chloride (Klor-Con) 40 meq BID PO Last administered on 01/18/17 19: 24; Start 01/17/17 at 12:00; Stop 01/18/17 at 23:01; Status DC Prenat Multivit/ [place]/Iron/Folic Ac (Multivitamin ) 1 tab DAILYBFRSUP PO Last administered on 01/31/17 17:06; Start 01/17/17 at 17:00; Stop 02/01 at 17:56; Status DC Divalproex Sodium (Depakote Sprinkles) 125 mg TID PO Last administered on 13:30; Start 01/17/17 at 21:00; Stop 01/23/17 at 18:02; Status DC Trazodone HCl (Desyrel) 100 mg PRN QHS PRN PO IF REPEAT NEEDED Last administered on 01/22/17 01:34; Start 01/17/17 at 18:45; Stop 02/01/17 at 13: 15; Status DC Trazodone HCl (Desyrel) 100 mg HS PO Last administered on 01/31/17 19:55; Start 01/17/17 at 21:00; Stop 02/01/17 at 17:56; Status DC Sertraline HCl (Zoloft) 25 mg DAILY PO Last administered on 01/21/17 08:11; Start 01/21/17 at 09:00; Stop 01/21/17 at 18:41; Status DC Sertraline HCl (Zoloft) 50 mg DAILY PO Last administered on 01/27/17 07:54; Start 01/22/17 at 09:00; Stop 01/27/17 at 18:53; Status DC Divalproex Sodium (Depakote Sprinkles) 250 mg BID PO Last administered on 02/01 09:51; Start 01/23/17 at 21:00; Stop 02/01/17 at 17:56; Status DC Divalproex Sodium (Depakote Sprinkles) 125 mg DAILY@1400 PO Last administered on 02/01/17 14:27; Start 01/24/17 at 14:00; Stop 02/01/17 at 17:56; Status DC Sertraline HCl (Zoloft) 75 mg DAILY PO Last administered on 01/28/17 08:14; Start 01/28/17 at 09:00; Stop 01/28/17 at 19:15; Status DC Sertraline HCl (Zoloft) 100 mg DAILY PO Last administered on 01/29/17 10:05; Start 01/29/17 at 09:00; Stop 01/29/17 at 18:31; Status DC Sertraline HCl (Zoloft) 100 mg QHS PO Last administered on 01/31/17 19:55; Start 01/30/17 at 21:00; Stop 02/01/17 at 13:09; Status DC Sertraline HCl (Zoloft) 50 mg QHS PO ; Start 02/01/17 at 21:00; Stop 02/01/17 at 21:00; Status DC Trazodone HCl (Desyrel) 100 mg PRN QHS PRN PO INSOMNIA; Start 02/01/17 at 13: 30; Stop 02/01/17 at 17:56; Status DC Active Scripts Active Reported Trazodone Hcl 100 Mg Tablet 100 Mg PO PRN QHS PRN Trazodone Hcl 100 Mg Tablet 100 Mg PO HS Zoloft (Sertraline Hcl) 100 Mg Tablet 50 Mg PO HS Tablet (Pnv Cmb#95/Ferrous Fumarate/Fa) 1 Each Tablet 1 Tab PO DAILYBFRSUP Zyprexa Zydis (Olanzapine) 5 Mg Tab.rapdis 2.5 Mg PO PRN Q2HR PRN Analgesic [place] (Methyl Salicylate/Menthol) 28 Gm Oint...g. 1 Maury TP PRN QID PRN Milk Of Magnesia (Magnesium Hydroxide) 2,400 Mg/10 Ml Oral.susp 2,400 Mg PO PRN QHS PRN Advanced Antacid Liquid (Mag Hydrox/Al Hydrox/Simeth) 355 Ml Oral.susp 15 Ml PO PRN AFTMEALHC PRN Divalproex Sodium 125 Mg Cap.sprink 125 Mg PO DAILY@1400 Cyanocobalamin Injection (Cyanocobalamin (Vitamin B-12)) 1,000 Mcg/1 Ml Vial 1, 000 Mcg IM [id number] Vitamin D3 (Cholecalciferol (Vitamin D3)) 50,000 Unit Capsule 50,000 Unit PO WEEKLY Tylenol (Acetaminophen) 325 Mg Tablet 650 Mg PO PRN Q6HRS PRN Simvastatin 40 Mg Tablet 40 Mg PO HS Questran Packet (Cholestyramine (With Sugar)) 4 Gm Powd.pack 4 Gm PO DAILY Pentasa (Mesalamine) 500 Mg Capsule.er 1,000 Mg PO QID Miralax (Polyethylene Glycol 3350) 17 Gm Powd.pack 17 Gm PO DAILY Losartan Potassium 50 Mg Tablet 50 Mg PO DAILY Fish Oil 1,200 mg Softgel ([place]-3/Dha/Epa/Fish Oil) 1 Each Capsule.dr 1 Each PO TID Depakote Sprinkle (Divalproex Sodium) 125 Mg Cap.sprink 250 Mg PO BID I have reviewed the current psychotropics carefully including drug interactions. Risk benefit ratio favors no change other than as noted in my dictated progress note. Diagnosis: Problems: (1) Impulse control disorder (2) Dementia, vascular, with depression (3) Dementia, vascular, with delusions (4) Dementia in Alzheimer's disease with depression (5) Dementia in Alzheimer's disease with delusions (6) Anxiety disorder GLADIS MCCOY MD Feb 01, 2017 18:49
[2017-02-01] MEDS ORDERED: SERTRALINE 50 MG TABLET. PO SCH (21:00)
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
--- NOTE | 2017-02-03 06:56 | PN ---
DATE: 01/31/2017 This is a late entry for date of service 01/31/2017 covers the elements not covered in my initial note 01/31/2017. I met with the patient in the evening of 01/31/2017. Overall, the patient remains confused, but was cooperative with the shower, less agitated, less labile in her mood. REVIEW OF SYSTEMS: Ambulation impaired. No CV, , pulmonary, eye system symptoms on review. Reliability poor. MENTAL STATUS EXAM: Oriented to herself. Insight, judgment, recent and remote memory, attention, concentration, fund of knowledge poor, consistent with her diagnosis mentioned in my initial note. PLAN: Continue current psychotropics with possible transition to [facility] 02/01/2017. MAN Sarita MCCOY MD DR: VIVIAN/alma JOB#: [id number] / [id number]
[2017-02-13] MEDS ORDERED: CYANOCOBALAMIN (VITAMIN B-12) 1,000 MCG/ML VIAL IM SCH (09:00)
== END 2017-02-01 16:50 | disposition home or self-care (01) | DRG 884 ==
LOC: ER 18:50 → GEROPSY 01-16 03:01
PROVIDERS: ADMIT Psychiatry & Neurology Psychiatry; ATTEND Psychiatry & Neurology Psychiatry
DX: F01.51 Vascular dementia, unspecified severity, with behavioral disturbance (principal); K50.90 Crohn's disease, unspecified, without complications; G30.9 Alzheimer's disease, unspecified; E83.42 Hypomagnesemia; F22 Delusional disorders; F02.81 Dementia in other diseases classified elsewhere, unspecified severity, with behavioral disturbance; D64.9 Anemia, unspecified; E53.8 Deficiency of other specified B group vitamins; E87.6 Hypokalemia; F32.9 Major depressive disorder, single episode, unspecified; F41.9 Anxiety disorder, unspecified; F63.9 Impulse disorder, unspecified; G47.00 Insomnia, unspecified; Z66 Do not resuscitate; Z79.899 Other long term (current) drug therapy; Z91.81 History of falling; Z88.8 Allergy status to other drugs, medicaments and biological substances
CPT/HCPCS: 36415; 51701; 70450; 71010; 72125; 80053; 80061; 80164; 80307; 81001; 82306; 82553; 82607; 82728; 83036; 83540; 83550; 83690; 83735; 83880; 84443; 84484; 85025; 87086; 93005; 96372; J1200; J2060; J3420; J3486; 97116; 97530; 97535; 99285-25; G0479